=== PATIENT | male | born 1940 | race Caucasian/White ===

== ENCOUNTER 2016-05-02 11:25 | Inpatient (IN) | payer OTHER, MEDICARE ==
[2016-05-02] VITALS (9 sets, daily range): BP systolic 75–194; BP diastolic 61–81; PULSE 84–96; RESP 15–20; TEMP 95.9–97.8; O2SAT 97–100
[~2016-05-02] VITALS: Ht 182.9 cm; Wt 88.5 kg
[~2016-05-02 11:25] MED LIST: ALPR.25 PO; AMLO10 PO; FENO160T PO; FERR324T4 PO; FURO20 PO; GABA300C3 PO; HYDRA25 PO; MELO15TA2 PO; METF500 PO; POTA10TA15 PO; SERT50 PO; SIMV10 PO; TRAZ50TA4 PO
[2016-05-02] MEDS ORDERED: SODIUM CHLOR 0.9% 1000 ML INJ 1,000 ML IV SCH (11:40)
--- NOTE | 2016-05-02 11:43 | PD ---
HPI Chief Complaint: GI Complaint Time Seen by Provider: 11:43 Travel History International Travel<30 days: No Contact w/Intl Traveler<30days: No Traveled to known affect area: No History of Present Illness HPI 75-year-old male with a history of hypertension, hyperlipidemia and diabetes is brought to the emergency department by EMS for evaluation of fall at home. Per EMS report the patient's neighbors had not seen the patient out of the house for several days so they went to check on him and they found him he was on the floor and could not get up which is why they called EMS. Per EMS when they arrived on scene the patient was on the floor covered in feces that was dark black with a bucket of emesis next to him. At the time the patient was slightly confused, thought he was in his bed. The patient admits that he has had some vomiting and diarrhea for the past several days. He is not exactly sure how he fell or ended up on the ground. He denies any pain. He denies any complaints actually. He denies chest pain, shortness of breath, abdominal pain , nausea, lightheadedness, dizziness, headache. When I asked the patient if he takes blood thinners he says yes but he is unable to tell me the name of the medication. He is awake, alert and oriented 3. Denies any prior history of GI bleed. No other complaints. PFSH Past Medical History Arthritis: Yes Autoimmune Disease: No Anxiety: Yes Depression: No Heart Rhythm Problems: No Cancer: No Cardiovascular Problems: Yes High Cholesterol: Yes Chest Pain: No Cerebrovascular Accident: No Diabetes: Yes Endocrine: Yes Genitourinary: No Hypertension: Yes Immune Disorder: No Kidney Stones: No Musculoskeletal: Yes Neurologic: Yes Psychiatric: No Reproductive: No Respiratory: No Renal Failure: No Past Surgical History Abdominal Surgery: No Cardiac Surgery: No Genitourinary Surgery: No Gynecologic Surgery: No Thoracic Surgery: No Other Surgery: Yes Social History Alcohol Use: Yes (RARELY) Tobacco Use: Yes (1-2 CIGARS A DAY) Substance Use: No Allergies-Medications (Allergen,Severity, Reaction): Coded Allergies: No Known Allergies (Unverified , 02/20/15) Reported Meds & Prescriptions Reported Meds & Active Scripts Active Reported Sertraline (Sertraline HCl) 50 Mg Tab 50 Mg PO DAILY Fenofibrate 160 Mg Tab 160 Mg PO DAILY Ferrous Sulfate 325 Mg Tab 325 Mg PO TID Metformin (Metformin HCl) 500 Mg Tab 500 Mg PO DAILY With a meal Review of Systems Except as stated in HPI: all other systems reviewed are Neg Physical Exam Narrative GENERAL: Well-nourished and well-developed elderly male patient in no acute distress. Patient is covered in black feces. SKIN: Skin is pale and dry. 3 cm laceration to left posterior scalp, looks several days old. HEAD: Normocephalic and atraumatic. EYES: No injection, drainage, or hyphema noted. PERRLA. EOMI. ENT: No nasal drainage noted. Oropharynx is clear. NECK: Supple and the trachea is midline. No obvious deformities, no midline cervical spine tenderness. CARDIOVASCULAR: Regular rate and rhythm. RESPIRATORY: Breath sounds are equal bilaterally with no accessory muscle use, wheezing, rhonchi, or crackles. GASTROINTESTINAL: Abdomen is soft, non-tender, and nondistended. MUSCULOSKELETAL: No obvious deformities, swelling, cyanosis, or ecchymosis is present throughout the upper and lower extremities. Patient has full range of motion without any signs of neurovascular compromise. Strength 5/5 upper and lower extremities and equal bilaterally. BACK: Nontender without any obvious deformities, bony point tenderness, or crepitus noted throughout the thoracic and lumbar vertebrae. NEUROLOGICAL: Awake, alert, and oriented. Normal speech and gait. Cranial nerves are grossly intact. Data Data Last Documented VS Vital Signs Date Time Temp Pulse Resp B/P Pulse Ox O2 Delivery O2 Flow Rate FiO2 05/02/16 12:00 90 17 154/70 98 Room Air 05/02/16 11:28 97.4 Orders Complete Blood Count With Diff (05/02/16 11:40) Comprehensive Metabolic Panel (05/02/16 11:40) Lipase (05/02/16 11:40) Prothrombin Time / Inr (Pt) (05/02/16 11:40) Act Partial Throm Time (Ptt) (05/02/16 11:40) Urinalysis - C+S If Indicated (05/02/16 11:40) Type And Screen (05/02/16 11:40) Chest, Single Ap (05/02/16 11:40) Cath For Specimen (05/02/16 11:40) Ecg Monitoring (05/02/16 11:40) Iv Access Insert/Monitor (05/02/16 11:40) Oximetry (05/02/16 11:40) Sodium Chlor 0.9% 1000 Ml Inj (Ns 1000 M (05/02/16 11:40) Sodium Chloride 0.9% Flush (Ns Flush) (05/02/16 11:45) Pantoprazole Inj (Protonix Inj) (05/02/16 11:45) Pantoprazole Inj (Protonix Inj) (05/02/16 11:45) Electrocardiogram (05/02/16 11:40) Creatine Kinase (Cpk) (05/02/16 11:40) Troponin I (05/02/16 11:40) Ct Brain W/O Iv Contrast(Rout) (05/02/16 11:40) Ct Cerv Spine W/O Contrast (05/02/16 11:40) Red Blood Cells (Rbc) (05/02/16 12:14) Blood Product Administration .UPON TRANSFUSION (05/02/16 12:14) Sodium Chlor 0.9% 250 Ml Inj (Ns 250 Ml (05/02/16 12:15) Fresh Frozen Plasma (Ffp) (05/02/16 12:23) Blood Product Administration .UPON TRANSFUSION (05/02/16 12:23) Consult Gastroenterology (05/02/16 ) Admit Order (Ed Use Only) (05/02/16 13:17) Labs Laboratory Tests Test 05/02/16 05/02/16 05/02/16 05/02/16 11:51 12:14 12:23 12:54 White Blood Count 6.5 TH/MM3 Red Blood Count 2.10 MIL/MM3 Hemoglobin 5.5 GM/DL Hematocrit 16.6 % Mean Corpuscular Volume 79.3 FL Mean Corpuscular Hemoglobin 26.4 PG Mean Corpuscular Hemoglobin 33.2 % Concent Red Cell Distribution Width 16.9 % Platelet Count 111 TH/MM3 Mean Platelet Volume 8.5 FL Neutrophils (%) (Auto) 85.3 % Lymphocytes (%) (Auto) 9.4 % Monocytes (%) (Auto) 4.9 % Eosinophils (%) (Auto) 0.1 % Basophils (%) (Auto) 0.3 % Neutrophils # (Auto) 5.6 TH/MM3 Lymphocytes # (Auto) 0.6 TH/MM3 Monocytes # (Auto) 0.3 TH/MM3 Eosinophils # (Auto) 0.0 TH/MM3 Basophils # (Auto) 0.0 TH/MM3 CBC Comment DIFF FINAL Differential Comment Prothrombin Time 17.7 SEC Prothromb Time International 1.6 RATIO Ratio Activated Partial 27.9 SEC Thromboplast Time Urine Color YELLOW Urine Turbidity CLEAR Urine pH 5.0 Urine Specific [place] 1.016 Urine Protein NEG mg/dL Urine Glucose (UA) NEG mg/dL Urine Ketones NEG mg/dL Urine Occult Blood TRACE Urine Nitrite NEG Urine Bilirubin NEG Urine Urobilinogen LESS THAN 2.0 MG/DL Urine Leukocyte Esterase NEG Urine RBC 4 /hpf Urine WBC 1 /hpf Urine Squamous Epithelial <1 /hpf Cells Urine Bacteria RARE /hpf Urine Hyaline Casts 6 /lpf Microscopic Urinalysis Comment CULT NOT INDICATED Sodium Level 140 MEQ/L Potassium Level 5.1 MEQ/L Chloride Level 107 MEQ/L Carbon Dioxide Level 23.3 MEQ/L Anion Gap 10 MEQ/L Blood Urea Nitrogen 96 MG/DL Creatinine 2.26 MG/DL Estimat Glomerular Filtration 29 ML/MIN Rate Random Glucose 194 MG/DL Calcium Level 8.8 MG/DL Total Bilirubin 1.9 MG/DL Aspartate Amino Transf 63 U/L (AST/SGOT) Alanine Aminotransferase 29 U/L (ALT/SGPT) Alkaline Phosphatase 73 U/L Total Creatine Kinase 195 U/L Troponin I LESS THAN 0.02 NG/ML Total Protein 6.5 GM/DL Albumin 2.4 GM/DL Lipase 105 U/L Blood Type O POSITIVE O POSITIVE Antibody Screen NEGATIVE Blood Bank Comment Crossmatch Leukocyte-Reduced Red Blood Cells MDM Medical Decision Making Medical Screen Exam Complete: Yes Emergency Medical Condition: Yes Differential Diagnosis GI bleed versus rhabdomyolysis versus DKA versus dehydration versus electrolyte abnormality versus intracranial hemorrhage Narrative Course 75-year-old male is brought to the emergency department by EMS for evaluation of fall at home with unknown down time. Patient is afebrile, he is slightly tachycardic with a heart rate of 96 bpm. Otherwise vital signs are stable. On physical exam he is covered in black feces. I did obtain a sample of this to do a stool guaiac which is positive. IV access is obtained, labs have been drawn and sent. Patient is administered IV fluids and Protonix bolus with drip. CBC shows severe anemia with a hemoglobin of 5.5, hematocrit 16.6. Platelets are low at 111. Coags show INR is slightly elevated at 1.6. Urinalysis shows trace occult blood, for a blood cells, rare bacteria. Head CT is negative. Cervical spine CT is negative. Chest x-ray is negative. CMP shows elevated creatinine of 2.26, and BUN of 96. Urinalysis shows trace occult blood, 4 red blood cells, rare bacteria. Patient has remained stable and without complaint while here in the emergency department. I have ordered 6 units of red blood cells, 2 to be administered now and 4 to be held. Patient will be administered 2 units of FFP as well. Gastroenterology consult placed. Patient will be admitted to medicine service. I discussed the case with my attending physician Dr. Thomson who is aware of the patients history, physical examination findings, and treatment plan. HemaPrompt Point of Care Internal Pos. & Neg. Controls: Passed Fecal Specimen Occult Blood: Positive Physician Communication Physician Communication I spoke with Dr. Mitchell [facility] who agrees to admit the patient to his service. Diagnosis Primary Impression: GI bleed Qualified Code: K92.2 - Gastrointestinal hemorrhage, unspecified gastrointestinal hemorrhage type Additional Impression: RAMON (acute kidney injury) Admitting Information Admitting Physician Requests: Admit Sun Daniel May 02, 2016 11:43
[2016-05-02] MEDS ORDERED: SODIUM CHLORIDE 0.9% FLUSH 5 ML FLUSH IVF PRN (11:45)
[2016-05-02] MEDS ORDERED: PANTOPRAZOLE INJ 80 MG in SODIUM CHLORIDE 0.9% INJ 35 ML IV ONE (11:45)
[2016-05-02 12:06] LABS: AUTOMATED NEUTROPHIL # 5.6 TH/MM3 (1.8-7.7); BASOPHIL % 0.3 % (0.0-2.0); EOSINOPHIL % 0.1 % (0.0-4.0); LYMPH % 9.4 % (9.0-44.0); LYMPHOCYTE # 0.6 TH/MM3 (1.0-4.8); MEAN CELL VOLUME 79.3 FL (80.0-100.0); MEAN CORPUSCULAR HEMOGLOBIN 26.4 PG (27.0-34.0); MEAN CORPUSCULAR HGB CONC 33.2 % (32.0-36.0); MONO % 4.9 % (0.0-8.0); NEUT % 85.3 % (16.0-70.0); PLATELET COUNT 111 TH/MM3 (150-450); RED CELL DISTRIBUTION WIDTH 16.9 % (11.6-17.2); WHITE BLOOD COUNT 6.5 TH/MM3 (4.0-11.0)
[2016-05-02 12:13] LABS: HEMO FLAGS DIFF FINAL
[2016-05-02] MEDS ORDERED: FENO160T PO (12:14)
[2016-05-02] MEDS ORDERED: METF500T PO (12:14)
[2016-05-02] MEDS ORDERED: SERT-132 PO (12:14)
[2016-05-02] MEDS ORDERED: FERR325T PO (12:14)
[2016-05-02 12:15] LABS: BACTERIA, URINE RARE /hpf; BLOOD, URINE TRACE (NEG); COMMENT (UR) CULT NOT INDICATED; CULTURE IF INDICATED CULT NOT INDICATED; GLUCOSE,URINE NEG (NEG); HEMATOCRIT 16.6 % (39.0-51.0); HYALINE CAST, URINE 6 /lpf (RARE); KETONE, URINE NEG (NEG); NITRITE,URINE NEG (NEG); SQUAMOUS EPITHELIAL CELL URINE <1 /hpf (0-5); URINE COLOR YELLOW (YELLW/STRAW)
[2016-05-02] MEDS ORDERED: SODIUM CHLOR 0.9% 250 ML INJ 250 ML IV ONE (12:15)
[2016-05-02 12:18] LABS: APTT (PATIENT) 27.9 SEC (24.3-30.1); INTERNATIONAL NORMALIZED RATIO 1.6 RATIO; PROTHROMBIN TIME - PATIENT 17.7 SEC (9.8-11.6)
--- NOTE | 2016-05-02 12:24 | RADRPT ---
EXAM DATE/TIME: 05/02/2016 12:10 [facility] COMPARISON: CT BRAIN W/O CONTRAST, October 31, 2014, 16:18. INDICATIONS : Found unresponsive. RADIATION DOSE: 37.86 CTDIvol (mGy) MEDICAL HISTORY : Cardiovascular disease. Hypertension. Diabetes SURGICAL HISTORY : None. ENCOUNTER: Initial ACUITY: 1 day PAIN SCALE: 0/10 LOCATION: cranial TECHNIQUE: Multiple contiguous axial images were obtained of the head. Using automated exposure control and adj ustment of the mA and/or kV according to patient size, radiation dose was kept as low as reasonably a chievable to obtain optimal diagnostic quality images. FINDINGS: CEREBRUM: The ventricles are normal for age. Stable age appropriate atrophy No evidence of midline shift, mass lesion, hemorrhage or acute infarction. No extra-axial fluid collections are seen.POSTERIOR FOSSA: The cerebellum and brainstem are intact. The 4th ventricle is midline. The cerebellopontine angle i s unremarkable. EXTRACRANIAL: The visualized portion of the orbits is intact. SKULL: The calvaria is intact. No evidence of skull fracture. CONCLUSION: Normal examination for a patient of this age. No significant change has occurred. Fabian Wilcox MD on May 02, 2016 at 12:22 Board Certified Radiologist. This report was verified electronically.
[2016-05-02 12:30] LABS: ALT (GPT) 29 U/L (12-78); ANION GAP 10 MEQ/L (5-15); AST (GOT) 63 U/L (15-37); BICARBONATE 23.3 MEQ/L (21.0-32.0); BLOOD UREA NITROGEN 96 MG/DL (7-18); CHLORIDE 107 MEQ/L (98-107); GLOMERULAR FILTRATION RATE 29 ML/MIN (>89); POTASSIUM 5.1 MEQ/L (3.5-5.1); SODIUM (NA) 140 MEQ/L (136-145)
[2016-05-02 12:34] LABS: ALKALINE PHOSPHATASE 73 U/L (45-117); CREATINE KINASE 195 U/L (39-308); TOTAL BILIRUBIN ADULT 1.9 MG/DL (0.2-1.0)
[2016-05-02] MEDS: PANTOPRAZOLE INJ 80 MG in SODIUM CHLORIDE 0.9% INJ 100 ML IV SCH ×2 (12:43→21:31)
--- NOTE | 2016-05-02 12:43 | RADRPT ---
EXAM DATE/TIME: 05/02/2016 12:10 [facility] COMPARISON: No previous studies available for comparison. INDICATIONS : Found unresponsive today RADIATION DOSE: 21.53 CTDIvol (mGy) MEDICAL HISTORY : Cardiovascular disease. Hypertension. Diabetes SURGICAL HISTORY : None. ENCOUNTER: Initial ACUITY: 1 day PAIN SCALE: 10/10 LOCATION: neck TECHNIQUE: Volumetric scanning of the cervical spine was performed. Multiplanar reconstructions in the sagittal, coronal and oblique axial planes were performed. Using automated exposure control and adjustment o f the mA and/or kV according to patient size, radiation dose was kept as low as reasonably achievable to obtain optimal diagnostic quality images. FINDINGS: There are mild degenerative changes of the cervical spine and anterior marginal spurring at multiple levels as well as posterior facet arthritic change. Alignment is normal with no fracture, compression , subluxation, or destructive change. Odontoid is in normal relationship the arch of C1 and the upper thoracic spine is negative with open and patent foramen CONCLUSION: No acute bony injury. Mild degenerative changes as described Fabian Wilcox MD on May 02, 2016 at 12:38 Board Certified Radiologist. This report was verified electronically.
--- NOTE | 2016-05-02 12:45 | RADRPT ---
EXAM DATE/TIME: 05/02/2016 12:12 [facility] COMPARISON: CHEST SINGLE AP, April 22, 2013, 14:11. INDICATIONS : Chest pain. MEDICAL HISTORY : Hypertension. Cardiovascular disease. Diabetes mellitus type II. SURGICAL HISTORY : None. ENCOUNTER: Initial ACUITY: 1 day PAIN SCORE: 0/10 LOCATION: Bilateral chest FINDINGS: A single view of the chest demonstrates the lungs to be symmetrically aerated without evidence of mas s, infiltrate or effusion. The cardiomediastinal contours are unremarkable with calcification aortic knob. Osseous structures are intact with right-sided marginal spurring thoracic spine.. CONCLUSION: Normal examination for a patient of this age. No significant change has occurred. Fabian Wilcox MD on May 02, 2016 at 12:43 Board Certified Radiologist. This report was verified electronically.
--- NOTE | 2016-05-02 13:53 | HHI.HP ---
HPI Service [facility] Primary Care Physician Randy Proctor M.D. Admission Diagnosis GI Bleed, Severe Anemia, RAMON Diagnoses: (1) GI bleed (2) Diabetes mellitus (3) Hypertension (4) Hyperlipidemia (5) Acute worsening of stage 3 chronic kidney disease (6) Symptomatic anemia (7) Microcytic hypochromic anemia (8) Toxic metabolic encephalopathy Chief Complaint: AMS with severe anemia, Travel History International Travel<30 Days: No Contact w/Intl Traveler <30 Da: No Traveled to Known Affected Are: No History of Present Illness 75-year-old male with known history of hypertension, hyperlipidemia, diabetes who was brought to the hospital because of altered mental status. The patient does not recall what happened to him prior to coming to the hospital. Per EMR patient has not been seen for 2 days prior to being brought to the hospital. On admissions, he has H&H of 5.5/16.6, INR of 1.6 and BUN/creatinine of 96/2.[address] was Normal and chest x-ray negative. Patient during my exam was alerted to self, month however no year and could tell who the textile bag sewer is. He denies any hemoptysis or hematuria. He also denies any chest pain or shortness of breath. Review of Systems Other 12 systems reviewed and are negative except for the one mentioned in history of present illness Past Family Social History Past Medical History Hypertension Hyperlipidemia Diabetes mellitus Past Surgical History Right leg surgery for tib-fib fracture Allergies: Coded Allergies: No Known Allergies (Unverified , 02/20/15) Family History significant for cancer Social History Patient continues to smoke at least 2 cigars daily. Patient has been smoking since he was 19 years old. Patient denies any alcohol or illicit drugs Physical Exam Vital Signs Vital Signs Date Time Temp Pulse Resp B/P Pulse Ox O2 Delivery O2 Flow Rate FiO2 05/02/16 13:45 97.6 91 16 180/77 98 Room Air 05/02/16 12:00 90 17 154/70 98 Room Air 05/02/16 11:28 97.4 96 18 140/62 99 Physical Exam GENERAL: This is a well-nourished, well-developed patient, in no apparent distress. SKIN: No rashes, ecchymoses or lesions. Cool and dry. HEAD: Atraumatic. Normocephalic. No temporal or scalp tenderness. EYES: Pupils equal round and reactive. Extraocular motions intact. No scleral icterus. No injection or drainage. ENT: Nose without bleeding, purulent drainage or septal hematoma. Throat without erythema, tonsillar hypertrophy or exudate. Uvula midline. Airway patent. NECK: Trachea midline. No JVD or lymphadenopathy. Supple, nontender, no meningeal signs. CARDIOVASCULAR: Regular rate and rhythm without murmurs, gallops, or rubs. RESPIRATORY: Clear to auscultation. Breath sounds equal bilaterally. No wheezes , rales, or rhonchi. GASTROINTESTINAL: Abdomen soft, non-tender, nondistended. No hepato-splenomegaly , or palpable masses. No guarding. MUSCULOSKELETAL: Extremities without clubbing, cyanosis, or edema. No joint tenderness, effusion, or edema noted. No calf tenderness. Negative Homans sign bilaterally. NEUROLOGICAL: Awake and alert. Cranial nerves II through XII intact. Motor and sensory grossly within normal limits. Five out of 5 muscle strength in all muscle groups. Normal speech. Laboratory Laboratory Tests Test 05/02/16 05/02/16 05/02/16 05/02/16 11:51 12:14 12:23 12:54 White Blood Count 6.5 Red Blood Count 2.10 Hemoglobin 5.5 Hematocrit 16.6 Mean Corpuscular Volume 79.3 Mean Corpuscular Hemoglobin 26.4 Mean Corpuscular Hemoglobin 33.2 Concent Red Cell Distribution Width 16.9 Platelet Count 111 Mean Platelet Volume 8.5 Neutrophils (%) (Auto) 85.3 Lymphocytes (%) (Auto) 9.4 Monocytes (%) (Auto) 4.9 Eosinophils (%) (Auto) 0.1 Basophils (%) (Auto) 0.3 Neutrophils # (Auto) 5.6 Lymphocytes # (Auto) 0.6 Monocytes # (Auto) 0.3 Eosinophils # (Auto) 0.0 Basophils # (Auto) 0.0 CBC Comment DIFF FINAL Differential Comment Prothrombin Time 17.7 Prothromb Time International 1.6 Ratio Activated Partial 27.9 Thromboplast Time Urine Color YELLOW Urine Turbidity CLEAR Urine pH 5.0 Urine Specific [place] 1.016 Urine Protein NEG Urine Glucose (UA) NEG Urine Ketones NEG Urine Occult Blood TRACE Urine Nitrite NEG Urine Bilirubin NEG Urine Urobilinogen LESS THAN 2.0 Urine Leukocyte Esterase NEG Urine RBC 4 Urine WBC 1 Urine Squamous Epithelial <1 Cells Urine Bacteria RARE Urine Hyaline Casts 6 Microscopic Urinalysis Comment CULT NOT INDICATED Sodium Level 140 Potassium Level 5.1 Chloride Level 107 Carbon Dioxide Level 23.3 Anion Gap 10 Blood Urea Nitrogen 96 Creatinine 2.26 Estimat Glomerular Filtration 29 Rate Random Glucose 194 Calcium Level 8.8 Total Bilirubin 1.9 Aspartate Amino Transf 63 (AST/SGOT) Alanine Aminotransferase 29 (ALT/SGPT) Alkaline Phosphatase 73 Total Creatine Kinase 195 Troponin I LESS THAN 0.02 Total Protein 6.5 Albumin 2.4 Lipase 105 Blood Type O POSITIVE O POSITIVE Antibody Screen NEGATIVE Blood Bank Comment Crossmatch Leukocyte-Reduced Red Blood Cells Result Diagram: 05/02/16 1151 05/02/16 1151 Imaging Last Impressions Head CT 05/02/16 1140 Signed Impressions: Service Date/Time: Monday, May 02, 2016 12:10 - CONCLUSION: Normal examination for a patient of this age. No significant change has occurred. Fabian Wilcox MD Chest X-Ray 05/02/16 1140 Signed Impressions: Service Date/Time: Monday, May 02, 2016 12:12 - CONCLUSION: Normal examination for a patient of this age. No significant change has occurred. Fabian Wilcox MD Cervical Spine CT 05/02/16 1140 Signed Impressions: Service Date/Time: Monday, May 02, 2016 12:10 - CONCLUSION: No acute bony injury. Mild degenerative changes as described Fabian Wilcox MD Assessment and Plan Problem List: (1) GI bleed ICD Code: K92.2 Status: Acute (2) Microcytic hypochromic anemia ICD Code: D50.9 Status: Acute (3) Symptomatic anemia ICD Code: D64.9 Status: Acute (4) Toxic metabolic encephalopathy ICD Code: G92 Status: Acute (5) Hyperlipidemia ICD Code: E78.5 Status: Acute (6) Hypertension ICD Code: I10 Status: Acute Assessment and Plan 75-year-old male with 1-GI bleed: H&H on admission 5.5 /16.6 with a positive fecal occult blood test. Gastroenterology has been consulted for evaluation for possible panendoscopy. Continue with Protonix drip 2-Symptomatic anemia: Transfused 2 units packed red blood cell and monitor H&H 3-Coagulopathy with elevated AST: Denies any prior history of liver disease, status post FFP treatment in ED 4-Acute on chronic kidney disease stage III: Last BUN/creatinine 02/20/15 off 27 /1.4 and now 96/2.26. Maybe secondary to dehydration versus anemia, which check renal ultrasound and consult nephrology. 5-Toxic metabolic encephalopathy: Now resolving, head CT noted and reviewed by me without any acute finding. Chest x-ray negative. 6-Diabetes type 2: Hold oral hypoglycemic agent, start medium sliding scale insulin. Check A1c 7-Labile benign hypertension: Start Lopressor 50 mg by mouth twice a day, clonidine when necessary 8-Hyperlipidemia: Check lipid profile, resume statin 10-DVT prophylaxis: Bilateral SCDs, chemical anti-prophylactic contraindicated Code Status Full code Discussed Condition With Patient, ED physician Physician Certification 2 Midnight Certification Type: Admission for Inpatient Services Order for Inpatient Services The services are ordered in accordance with Medicare regulations or non- Medicare payer requirements, as applicable. In the case of services not specified as inpatient-only, they are appropriately provided as inpatient services in accordance with the 2-midnight benchmark. Estimated LOS (days): 2 days is the estimated time the patient will need to remain in the hospital, assuming treatment plan goals are met and no additional complications. Post-Hospital Plan: Not yet determined Problem Qualifiers (1) GI bleed: Qualified Code: K92.2 - Gastrointestinal hemorrhage, unspecified gastrointestinal hemorrhage type (2) Diabetes mellitus: Bob Mitchell MD May 02, 2016 13:53
[2016-05-02] MEDS: SODIUM CHLOR 0.9% 1000 ML INJ 1,000 ML IV SCH (13:59)
[2016-05-02] MEDS ORDERED: SODIUM CHLORIDE 0.9% FLUSH 5 ML FLUSH FLUSH PRN (14:00)
[2016-05-02] MEDS ORDERED: DEXTROSE 50% IN WATER 50 ML VIAL(D50) IV PUSH PRN (14:00)
[2016-05-02] MEDS ORDERED: ONDANSETRON HCL 4 MG/2 ML VIAL IVP PRN (14:00)
[2016-05-02] MEDS ORDERED: GLUCAGON 1 MG/ML VIAL OTHER PRN (14:00)
[2016-05-02] MEDS ORDERED: ACETAMINOPHEN 325 MG TAB PO PRN ×2 (14:00)
[2016-05-02] MEDS ORDERED: NALOXONE HCL 0.4 MG/ML AMP IV PRN (14:00)
--- NOTE | 2016-05-02 14:12 | PD ---
Data Data Last Documented VS Vital Signs Date Time Temp Pulse Resp B/P Pulse Ox O2 Delivery O2 Flow Rate FiO2 05/02/16 12:00 90 17 154/70 98 Room Air 05/02/16 11:28 97.4 Orders Complete Blood Count With Diff (05/02/16 11:40) Comprehensive Metabolic Panel (05/02/16 11:40) Lipase (05/02/16 11:40) Prothrombin Time / Inr (Pt) (05/02/16 11:40) Act Partial Throm Time (Ptt) (05/02/16 11:40) Urinalysis - C+S If Indicated (05/02/16 11:40) Type And Screen (05/02/16 11:40) Chest, Single Ap (05/02/16 11:40) Cath For Specimen (05/02/16 11:40) Ecg Monitoring (05/02/16 11:40) Iv Access Insert/Monitor (05/02/16 11:40) Oximetry (05/02/16 11:40) Sodium Chlor 0.9% 1000 Ml Inj (Ns 1000 M (05/02/16 11:40) Sodium Chloride 0.9% Flush (Ns Flush) (05/02/16 11:45) Pantoprazole Inj (Protonix Inj) (05/02/16 11:45) Pantoprazole Inj (Protonix Inj) (05/02/16 11:45) Electrocardiogram (05/02/16 11:40) Creatine Kinase (Cpk) (05/02/16 11:40) Troponin I (05/02/16 11:40) Ct Brain W/O Iv Contrast(Rout) (05/02/16 11:40) Ct Cerv Spine W/O Contrast (05/02/16 11:40) Red Blood Cells (Rbc) (05/02/16 12:14) Blood Product Administration .UPON TRANSFUSION (05/02/16 12:14) Sodium Chlor 0.9% 250 Ml Inj (Ns 250 Ml (05/02/16 12:15) Fresh Frozen Plasma (Ffp) (05/02/16 12:23) Blood Product Administration .UPON TRANSFUSION (05/02/16 12:23) Consult Gastroenterology (05/02/16 ) Admit Order (Ed Use Only) (05/02/16 13:17) Labs Laboratory Tests Test 05/02/16 05/02/16 05/02/16 05/02/16 11:51 12:14 12:23 12:54 White Blood Count 6.5 TH/MM3 Red Blood Count 2.10 MIL/MM3 Hemoglobin 5.5 GM/DL Hematocrit 16.6 % Mean Corpuscular Volume 79.3 FL Mean Corpuscular Hemoglobin 26.4 PG Mean Corpuscular Hemoglobin 33.2 % Concent Red Cell Distribution Width 16.9 % Platelet Count 111 TH/MM3 Mean Platelet Volume 8.5 FL Neutrophils (%) (Auto) 85.3 % Lymphocytes (%) (Auto) 9.4 % Monocytes (%) (Auto) 4.9 % Eosinophils (%) (Auto) 0.1 % Basophils (%) (Auto) 0.3 % Neutrophils # (Auto) 5.6 TH/MM3 Lymphocytes # (Auto) 0.6 TH/MM3 Monocytes # (Auto) 0.3 TH/MM3 Eosinophils # (Auto) 0.0 TH/MM3 Basophils # (Auto) 0.0 TH/MM3 CBC Comment DIFF FINAL Differential Comment Prothrombin Time 17.7 SEC Prothromb Time International 1.6 RATIO Ratio Activated Partial 27.9 SEC Thromboplast Time Urine Color YELLOW Urine Turbidity CLEAR Urine pH 5.0 Urine Specific [place] 1.016 Urine Protein NEG mg/dL Urine Glucose (UA) NEG mg/dL Urine Ketones NEG mg/dL Urine Occult Blood TRACE Urine Nitrite NEG Urine Bilirubin NEG Urine Urobilinogen LESS THAN 2.0 MG/DL Urine Leukocyte Esterase NEG Urine RBC 4 /hpf Urine WBC 1 /hpf Urine Squamous Epithelial <1 /hpf Cells Urine Bacteria RARE /hpf Urine Hyaline Casts 6 /lpf Microscopic Urinalysis Comment CULT NOT INDICATED Sodium Level 140 MEQ/L Potassium Level 5.1 MEQ/L Chloride Level 107 MEQ/L Carbon Dioxide Level 23.3 MEQ/L Anion Gap 10 MEQ/L Blood Urea Nitrogen 96 MG/DL Creatinine 2.26 MG/DL Estimat Glomerular Filtration 29 ML/MIN Rate Random Glucose 194 MG/DL Calcium Level 8.8 MG/DL Total Bilirubin 1.9 MG/DL Aspartate Amino Transf 63 U/L (AST/SGOT) Alanine Aminotransferase 29 U/L (ALT/SGPT) Alkaline Phosphatase 73 U/L Total Creatine Kinase 195 U/L Troponin I LESS THAN 0.02 NG/ML Total Protein 6.5 GM/DL Albumin 2.4 GM/DL Lipase 105 U/L Blood Type O POSITIVE O POSITIVE Antibody Screen NEGATIVE Blood Bank Comment Crossmatch Leukocyte-Reduced Red Blood Cells MDM Supervised Visit with ANTONIO: Yes Narrative Course The history, exam, and medical decision-making in the associated mid-level provider note were completed with my assistance. I reviewed and agree with the findings presented. I attest that I had a [id number] encounter with the patient on the same day, and personally performed and documented my assessment and findings in the medical record. *My assessment and Findings: 80-year-old man, reportedly on a blood thinner, presents emergent part of the being found down, on the floor for an unknown number of days, covered and melena. Possible bloody emesis as well. Looks dehydrated but nontoxic. INR is elevated. Possible liver disease. Ordered for red blood cell transfusion, FFP, IV fluids, no rhabdo. Admission. Diagnosis Primary Impression: GI bleed Qualified Code: K92.2 - Gastrointestinal hemorrhage, unspecified gastrointestinal hemorrhage type Additional Impression: RAMON (acute kidney injury) Itz Thomson MD May 02, 2016 14:12
[2016-05-02] MEDS ORDERED: cloNIDine HCL 0.1 MG TAB PO PRN (14:30)
[2016-05-02] MEDS ORDERED: RESP: ALBUTEROL 2.5 MG/IPRATROPIUM 0.5 MG NEB (PRN) NEB (14:30)
--- NOTE | 2016-05-02 15:27 | RADRPT ---
EXAM DATE/TIME: 05/02/2016 14:36 [facility] COMPARISON: No previous studies available for comparison. INDICATIONS : Increased labs. MEDICAL HISTORY : Hypercholesterolemia. Hypertension. Arthritis. Diabetes. SURGICAL HISTORY : Right leg surgery. ENCOUNTER: Initial ACUITY: 1 day PAIN SCORE: Nonresponsive. LOCATION: Bilateral flank MEASUREMENTS: RIGHT KIDNEY: 10.5 x 4.9 x 4.0 cm LEFT KIDNEY: 10.6 x 5.1 x 4.7 cm FINDINGS: Moderate amount of ascitic fluid and free fluid within the abdomen RIGHT KIDNEY: Renal cortex is normal in thickness and echotexture. No hydronephrosis, stone, or mass. LEFT KIDNEY: Renal cortex is normal in thickness and echotexture. No hydronephrosis, stone, or m ass. BLADDER: Within normal limits given the degree of distension. CONCLUSION: Negative ultrasound of the kidneys. Bladder is intact. Moderate amount of ascitic salvador e fluid in the abdomen Fabian Wilcox MD on May 02, 2016 at 15:24 Board Certified Radiologist. This report was verified electronically.
[2016-05-02] MEDS: INSULIN ASPART SUPPLEMENTAL SCALE SQ SCH ×2 (16:59→21:28)
--- NOTE | 2016-05-02 17:54 | PD.CONS ---
HPI History of Present Illness This is a 75 year old male who was admitted with altered mental status. He does not recall what happened at home prior to coming to the emergency department.He is a poor historian. He appears jaundiced and has elevated LFT's, ascites,with multiple ecchymotic areas on his arms. He was found to have a H/H 5.5 and 16.6. He denies blood in his stools or vomiting any blood. Denies abdominal pain or diarrhea.He states he has lost about 20 pounds since December. He thinks he had a colonoscopy about 3 years ago not sure of results and does not remember having an EGD. He declines any GI procedures at this time. (Yudi Carpenter) FORMERLY [facility], 1928–1983 Past Medical History Hypertension Chronic anemia Hyperlipidemia Diabetes mellitus Chronic kidney disease Stage 3 Thrombocytopenia Past Surgical History Right leg surgery for tib-fib fracture (Yudi Carpenter) Coded Allergies: No Known Allergies (Unverified , 02/20/15) Medications Reported Meds & Active Scripts Active Reported Sertraline (Sertraline HCl) 50 Mg Tab 50 Mg PO DAILY Fenofibrate 160 Mg Tab 160 Mg PO DAILY Ferrous Sulfate 325 Mg Tab 325 Mg PO TID Metformin (Metformin HCl) 500 Mg Tab 500 Mg PO DAILY With a meal Family History significant for cancer Social History Patient continues to smoke at least 2 cigars daily. Patient has been smoking since he was 19 years old. Patient denies any alcohol or illicit drugs (Yudi Carpenter) GI Exam Vitals I&O Vital Signs Date Time Temp Pulse Resp B/P Pulse Ox O2 Delivery O2 Flow Rate FiO2 05/02/16 15:18 85 16 187/81 98 Room Air 05/02/16 14:01 97.8 91 16 159/71 98 Room Air 05/02/16 13:59 97.8 91 15 159/71 97 Room Air 05/02/16 13:45 97.6 91 16 180/77 98 Room Air 05/02/16 12:00 90 17 154/70 98 Room Air 05/02/16 11:28 97.4 96 18 140/62 99 Imaging Last [address] 05/02/16 1140 Signed Impressions: Service Date/Time: Monday, May 02, 2016 12:10 - CONCLUSION: Normal examination for a patient of this age. No significant change has occurred. Fabian Wilcox MD Chest X-Ray 05/02/16 1140 Signed Impressions: Service Date/Time: Monday, May 02, 2016 12:12 - CONCLUSION: Normal examination for a patient of this age. No significant change has occurred. Fabian Wilcox MD Cervical Spine CT 05/02/16 1140 Signed Impressions: Service Date/Time: Monday, May 02, 2016 12:10 - CONCLUSION: No acute bony injury. Mild degenerative changes as described Fabian Wilcox MD Renal Ultrasound 05/02/16 0000 Signed Impressions: Service Date/Time: Monday, May 02, 2016 14:36 - CONCLUSION: Negative ultrasound of the kidneys. Bladder is intact. Moderate amount of ascitic free fluid in the abdomen Fabian Wilcox MD Laboratory Test 05/02/16 05/02/16 05/02/16 05/02/16 11:51 12:14 12:23 12:54 White Blood Count 6.5 TH/MM3 Red Blood Count 2.10 MIL/MM3 Hemoglobin 5.5 GM/DL Hematocrit 16.6 % Mean Corpuscular Volume 79.3 FL Mean Corpuscular Hemoglobin 26.4 PG Mean Corpuscular Hemoglobin 33.2 % Concent Red Cell Distribution Width 16.9 % Platelet Count 111 TH/MM3 Mean Platelet Volume 8.5 FL Neutrophils (%) (Auto) 85.3 % Lymphocytes (%) (Auto) 9.4 % Monocytes (%) (Auto) 4.9 % Eosinophils (%) (Auto) 0.1 % Basophils (%) (Auto) 0.3 % Neutrophils # (Auto) 5.6 TH/MM3 Lymphocytes # (Auto) 0.6 TH/MM3 Monocytes # (Auto) 0.3 TH/MM3 Eosinophils # (Auto) 0.0 TH/MM3 Basophils # (Auto) 0.0 TH/MM3 CBC Comment DIFF FINAL Differential Comment Prothrombin Time 17.7 SEC Prothromb Time International 1.6 RATIO Ratio Activated Partial 27.9 SEC Thromboplast Time Urine Color YELLOW Urine Turbidity CLEAR Urine pH 5.0 Urine Specific [place] 1.016 Urine Protein NEG mg/dL Urine Glucose (UA) NEG mg/dL Urine Ketones NEG mg/dL Urine Occult Blood TRACE Urine Nitrite NEG Urine Bilirubin NEG Urine Urobilinogen LESS THAN 2.0 MG/DL Urine Leukocyte Esterase NEG Urine RBC 4 /hpf Urine WBC 1 /hpf Urine Squamous Epithelial <1 /hpf Cells Urine Bacteria RARE /hpf Urine Hyaline Casts 6 /lpf Microscopic Urinalysis Comment CULT NOT INDICATED Sodium Level 140 MEQ/L Potassium Level 5.1 MEQ/L Chloride Level 107 MEQ/L Carbon Dioxide Level 23.3 MEQ/L Anion Gap 10 MEQ/L Blood Urea Nitrogen 96 MG/DL Creatinine 2.26 MG/DL Estimat Glomerular Filtration 29 ML/MIN Rate Random Glucose 194 MG/DL Calcium Level 8.8 MG/DL Total Bilirubin 1.9 MG/DL Aspartate Amino Transf 63 U/L (AST/SGOT) Alanine Aminotransferase 29 U/L (ALT/SGPT) Alkaline Phosphatase 73 U/L Total Creatine Kinase 195 U/L Troponin I LESS THAN 0.02 NG/ML Total Protein 6.5 GM/DL Albumin 2.4 GM/DL Lipase 105 U/L Blood Type O POSITIVE O POSITIVE Antibody Screen NEGATIVE Blood Bank Comment Crossmatch Leukocyte-Reduced Red Blood Cells Physical Examination HEENT: Pupils round and reactive to light; normocephalic; atraumatic; no jaundice. Throat is clear. NECK: Neck is supple, no JVD, no lymphadenopathy. CHEST: Decreased breath sounds CARDIAC: Regular rate and rhythm with no murmur gallop or rubs. ABDOMEN: Distended firm, + ascites EXTREMITIES: No clubbing, cyanosis, SKIN: jaundice DIRECTOR HOUSEKEEPING: No focal deficits; alert and oriented to person and place (Yudi Carpenter) Assessment and Plan Assessment: (1) Anemia Plan: Secondary to GI bleed H&H is 5.5/16.6 Transfuse PRBCs to keep Hgb > 7.0 (2) Altered mental status (3) GI bleed (4) Thrombocytopenia Plan: Chronic (5) Elevated LFTs Plan: will recheck in am US RUQ Plan This is a 75 year old male admitted with severe anemia with H&H of 5.5/16.6, has PMH of chronic anemia, thrombocytopenia. He denies abdominal pain, or any other GI symptoms. He appears to have ascites, multiple ecchymotic areas on his arms and jaundice. He is a poor historian. Thinks he had a colonoscopy about 3 years ago does not remember the results. Does not remember having an EGD, discussed procedures with the patient such as an EGD and colonoscopy and he declines procedures at this time. He has chronic kidney disease and BUN is 96 creatinine is 2.26. Plan -Transfuse PRBC's to keep Hgb > 7.0 -Follow serial H&H -Recheck LF'Ts in am -US liver -Continue PPI -Would recommend CT of the abdomen and pelvis but creatinine is elevated -May need paracentesis -Needs colonoscopy/EGD, he is declining procedures at this time -Supportive care Further recommendations will follow Patient was seen and examined by Dr. Fontana and myself this note is written on his behalf. (Yudi Carpenter) Assessment: (1) Anemia Plan: Secondary to GI bleed H&H is 5.5/16.6 Transfuse PRBCs to keep Hgb > 7.0 (2) Altered mental status (3) GI bleed (4) Thrombocytopenia Plan: Chronic (5) Elevated LFTs Plan: will recheck in am US RUQ Physician Comments patient was seen and examine, does not want any procedure, aware of the high risks of not having his anemia evaluated (Nas Fontana MD) Problem Qualifiers (1) Altered mental status: Qualified Code: R41.82 - Altered mental status, unspecified altered mental status type (2) GI bleed: Qualified Code: K92.2 - Gastrointestinal hemorrhage, unspecified gastrointestinal hemorrhage type Yudi Carpenter May 02, 2016 17:54 Nas Fontana MD May 02, 2016 22:29
--- NOTE | 2016-05-02 18:24 | PD.CONS ---
HPI Service Nephrology Consult Requested By Dr. Mitchell Reason for Consult Acute renal failure Primary Care Physician Randy Proctor M.D. History of Present Illness Patient is 75-year-old male with history of diabetes, he has been admitted to the in the hospital with altered mental status and possible GI bleed, patient recalled passing small amount of blood in the stool however he was not alarmed, he never had kidney problems or liver issues he denies taking alcoholic beverages, used to smoke cigar once a month, he is passing urine. He denies kidney stones or prostate problems, ultrasound of the kidneys that showed the both kidneys of normal size there is ascites present in the abdominal cavity. Review of Systems Constitutional: COMPLAINS OF: Fatigue Gastrointestinal: COMPLAINS OF: Bloody stools Musculoskeletal: COMPLAINS OF: Joint pain Neurologic: COMPLAINS OF: Abnormal gait Psychiatric: COMPLAINS OF: Confusion Past Family Social History Allergies: Coded Allergies: No Known Allergies (Unverified , 02/20/15) Past Medical History Diabetes hyperlipidemia Hypertension Past Surgical History Orthopedic surgery right leg tibia and fibula Reported Medications Reported Meds & Active Scripts Active Reported Sertraline (Sertraline HCl) 50 Mg Tab 50 Mg PO DAILY Fenofibrate 160 Mg Tab 160 Mg PO DAILY Ferrous Sulfate 325 Mg Tab 325 Mg PO TID Metformin (Metformin HCl) 500 Mg Tab 500 Mg PO DAILY With a meal Active Ordered Medications Current Medications Medications (Trade) Dose Ordered Sig/Melania Route Start Time Stop Time Status Last Admin Pantoprazole Sodium 80 mg/ Sodium Chloride 100 ml @ 10 mls/hr Q10H IV 05/02/16 11:45 05/02/16 12:43 Sodium Chloride 250 ml @ 15 mls/hr ONCE ONCE IV 05/02/16 12:15 05/03/16 04:54 05/02/16 13:47 (NS 1000 ml Inj) 1,000 ml @ 100 mls/hr Q10H IV 05/02/16 14:00 05/02/16 13:59 (NS Flush) 2 ml UNSCH PRN FLUSH 05/02/16 14:00 (NS Flush) 2 ml BID FLUSH 05/02/16 21:00 (Tylenol) 650 mg Q4H PRN PO 05/02/16 14:00 (Zofran Inj) 4 mg Q6H PRN IVP 05/02/16 14:00 (Tylenol) 650 mg Q6H PRN PO 05/02/16 14:00 (Narcan Inj) 0.4 mg UNSCH PRN IV 05/02/16 14:00 (D50w (Vial) Inj) 25 ml UNSCH PRN IV PUSH 05/02/16 14:00 (Glucagon Inj) 1 mg UNSCH PRN OTHER 05/02/16 14:00 (Lopressor) 50 mg Q12HR PO 05/02/16 21:00 (Catapres) 0.1 mg Q6H PRN PO 05/02/16 14:30 Family History Noncontributory Social History He smokes a cigar denies alcohol Physical Exam Vital Signs Vital Signs Date Time Temp Pulse Resp B/P Pulse Ox O2 Delivery O2 Flow Rate FiO2 05/02/16 15:18 85 16 187/81 98 Room Air 05/02/16 14:01 97.8 91 16 159/71 98 Room Air 05/02/16 13:59 97.8 91 15 159/71 97 Room Air 05/02/16 13:45 97.6 91 16 180/77 98 Room Air 05/02/16 12:00 90 17 154/70 98 Room Air 05/02/16 11:28 97.4 96 18 140/62 99 Physical Exam GENERAL: Well-nourished, well-developed pale color SKIN: Warm and dry. HEAD: Normocephalic. EYES: No scleral icterus. No injection or drainage. NECK: Supple, trachea midline. No JVD or lymphadenopathy. CARDIOVASCULAR: Regular rate and rhythm without murmurs, gallops, or rubs. RESPIRATORY: Breath sounds equal bilaterally. No accessory muscle use. GASTROINTESTINAL: Abdomen soft, non-tender, distended. EXTREMITIES: No cyanosis, or edema. NEUROLOGICAL: Awake, alert. Non-focal. Laboratory Laboratory Tests Test 05/02/16 05/02/16 05/02/16 05/02/16 11:51 12:14 12:23 12:54 White Blood Count 6.5 Red Blood Count 2.10 Hemoglobin 5.5 Hematocrit 16.6 Mean Corpuscular Volume 79.3 Mean Corpuscular Hemoglobin 26.4 Mean Corpuscular Hemoglobin 33.2 Concent Red Cell Distribution Width 16.9 Platelet Count 111 Mean Platelet Volume 8.5 Neutrophils (%) (Auto) 85.3 Lymphocytes (%) (Auto) 9.4 Monocytes (%) (Auto) 4.9 Eosinophils (%) (Auto) 0.1 Basophils (%) (Auto) 0.3 Neutrophils # (Auto) 5.6 Lymphocytes # (Auto) 0.6 Monocytes # (Auto) 0.3 Eosinophils # (Auto) 0.0 Basophils # (Auto) 0.0 CBC Comment DIFF FINAL Differential Comment Prothrombin Time 17.7 Prothromb Time International 1.6 Ratio Activated Partial 27.9 Thromboplast Time Urine Color YELLOW Urine Turbidity CLEAR Urine pH 5.0 Urine Specific [place] 1.016 Urine Protein NEG Urine Glucose (UA) NEG Urine Ketones NEG Urine Occult Blood TRACE Urine Nitrite NEG Urine Bilirubin NEG Urine Urobilinogen LESS THAN 2.0 Urine Leukocyte Esterase NEG Urine RBC 4 Urine WBC 1 Urine Squamous Epithelial <1 Cells Urine Bacteria RARE Urine Hyaline Casts 6 Microscopic Urinalysis Comment CULT NOT INDICATED Sodium Level 140 Potassium Level 5.1 Chloride Level 107 Carbon Dioxide Level 23.3 Anion Gap 10 Blood Urea Nitrogen 96 Creatinine 2.26 Estimat Glomerular Filtration 29 Rate Random Glucose 194 Calcium Level 8.8 Total Bilirubin 1.9 Aspartate Amino Transf 63 (AST/SGOT) Alanine Aminotransferase 29 (ALT/SGPT) Alkaline Phosphatase 73 Total Creatine Kinase 195 Troponin I LESS THAN 0.02 Total Protein 6.5 Albumin 2.4 Lipase 105 Blood Type O POSITIVE O POSITIVE Antibody Screen NEGATIVE Blood Bank Comment Crossmatch Leukocyte-Reduced Red Blood Cells Result Diagram: 05/02/16 1151 05/02/16 1151 Imaging Last Impressions Head CT 05/02/16 1140 Signed Impressions: Service Date/Time: Monday, May 02, 2016 12:10 - CONCLUSION: Normal examination for a patient of this age. No significant change has occurred. Fabian Wilcox MD Chest X-Ray 05/02/16 1140 Signed Impressions: Service Date/Time: Monday, May 02, 2016 12:12 - CONCLUSION: Normal examination for a patient of this age. No significant change has occurred. Fabian Wilcox MD Cervical Spine CT 05/02/16 1140 Signed Impressions: Service Date/Time: Monday, May 02, 2016 12:10 - CONCLUSION: No acute bony injury. Mild degenerative changes as described Fabian Wilcox MD Renal Ultrasound 05/02/16 0000 Signed Impressions: Service Date/Time: Monday, May 02, 2016 14:36 - CONCLUSION: Negative ultrasound of the kidneys. Bladder is intact. Moderate amount of ascitic free fluid in the abdomen Fabian Wilcox MD Assessment and Plan Problem List: (1) RAMON (acute kidney injury) Plan: Patient has dehydration and he is getting packed red blood cells and hydration agree with current management. His renal functions were better in 2014 creatinine 1.14-1.4 and we will continue to monitor at this point to just repeat BMP in the morning Avoid nephrotoxins (2) GI bleed Plan: GI consult (3) Diabetes mellitus Plan: Follow blood glucose (4) Elevated LFTs Plan: Previous to have ascites (5) Coagulopathy Plan: INR elevated at 1.6 Problem Qualifiers (1) GI bleed: Qualified Code: K92.2 - Gastrointestinal hemorrhage, unspecified gastrointestinal hemorrhage type (2) Diabetes mellitus: Deshaun Calero MD May 02, 2016 18:24
[2016-05-02] MEDS: METOPROLOL TARTRATE 50 MG TAB PO SCH (21:00)
[2016-05-02] MEDS: SODIUM CHLORIDE 0.9% FLUSH 5 ML FLUSH FLUSH SCH (21:30)
--- NOTE | 2016-05-02 23:17 | EKG ---
Date Performed: 05/02/2016 Time Performed: 12:03:18 PTAGE: 75 years EKG: Sinus rhythm NORMAL ECG PREVIOUS TRACING : 02/20/2015 13.31 Compared to the previous tracing, rate has decreased DOCTOR: Matt Blair Interpretating Date/Time 05/02/2016 23:16:01
[2016-05-03] VITALS (9 sets, daily range): BP systolic 50–199; BP diastolic 41–88; PULSE 62–84; RESP 16–20; TEMP 95.6–98.4; O2SAT 96–100
[2016-05-03] MEDS: INSULIN ASPART SUPPLEMENTAL SCALE SQ SCH ×4 (07:00→21:00)
[2016-05-03] MEDS: PANTOPRAZOLE INJ 80 MG in SODIUM CHLORIDE 0.9% INJ 100 ML IV SCH ×2 (07:45→17:16)
--- NOTE | 2016-05-03 08:45 | HHI.PR ---
Subjective Remarks Follow-up GI bleed, anemia, chronic kidney disease stage III 05/03/16-patient seen and examined, no acute event overnight alert however still confused. Patient initially refused panendoscopy per gastroenterology notes however this morning he is willing to proceed with procedures. He was transfused 2 units packed red blood cell Objective Vitals Vital Signs Date Time Temp Pulse Resp B/P Pulse Ox O2 Delivery O2 Flow Rate FiO2 05/03/16 04:37 97.7 81 18 155/77 100 05/03/16 04:00 97.7 81 19 155/77 100 05/03/16 00:00 97.4 84 20 147/69 99 05/02/16 22:25 96.7 84 16 136/65 100 05/02/16 22:18 95.9 84 18 75/62 100 05/02/16 15:18 85 16 187/81 98 Room Air 05/02/16 15:00 97.8 92 20 194/61 99 05/02/16 14:01 97.8 91 16 159/71 98 Room Air 05/02/16 13:59 97.8 91 15 159/71 97 Room Air 05/02/16 13:45 97.6 91 16 180/77 98 Room Air 05/02/16 12:00 90 17 154/70 98 Room Air 05/02/16 11:28 97.4 96 18 140/62 99 Result Diagram: 05/02/16 1151 05/02/16 1151 Imaging Last Impressions Head CT 05/02/16 1140 Signed Impressions: Service Date/Time: Monday, May 02, 2016 12:10 - CONCLUSION: Normal examination for a patient of this age. No significant change has occurred. Fabian Wilcox MD Chest X-Ray 05/02/16 1140 Signed Impressions: Service Date/Time: Monday, May 02, 2016 12:12 - CONCLUSION: Normal examination for a patient of this age. No significant change has occurred. Fabian Wilcox MD Cervical Spine CT 05/02/16 1140 Signed Impressions: Service Date/Time: Monday, May 02, 2016 12:10 - CONCLUSION: No acute bony injury. Mild degenerative changes as described Fabian Wilcox MD Renal Ultrasound 05/02/16 0000 Signed Impressions: Service Date/Time: Monday, May 02, 2016 14:36 - CONCLUSION: Negative ultrasound of the kidneys. Bladder is intact. Moderate amount of ascitic free fluid in the abdomen Fabian Wilcox MD Objective Remarks GENERAL: NAD SKIN: Warm and dry. Some ecchymosis to upper extremities HEAD: Normocephalic. EYES: No scleral icterus. No injection or drainage. NECK: Supple, trachea midline. No JVD or lymphadenopathy. CARDIOVASCULAR: Regular rate and rhythm without murmurs, gallops, or rubs. RESPIRATORY: Breath sounds equal bilaterally. No accessory muscle use. GASTROINTESTINAL: Abdomen soft, non-tender, distended. MUSCULOSKELETAL: No cyanosis, or edema. BACK: Nontender without obvious deformity. No CVA tenderness. A/P Problem List: (1) GI bleed ICD Code: K92.2 Status: Acute (2) Microcytic hypochromic anemia ICD Code: D50.9 Status: Acute (3) Symptomatic anemia ICD Code: D64.9 Status: Acute (4) Toxic metabolic encephalopathy ICD Code: G92 Status: Acute (5) Hyperlipidemia ICD Code: E78.5 Status: Acute (6) Hypertension ICD Code: I10 Status: Acute (7) Thrombocytopenia ICD Code: D69.6 Status: Acute (8) Ascites ICD Code: R18.8 Status: Acute (9) Coagulopathy ICD Code: D68.9 Status: Acute Assessment and Plan 75-year-old male with 1-GI bleed: H&H on admission 5.5 /16.6 with a positive fecal occult blood test. Gastroenterology has been consulted for evaluation however patient initially refused panendoscopy. This morning, he was willing to proceed with procedures. Continue with Protonix drip 2-Symptomatic anemia: Transfused 2 units packed red blood cell. H&H pending this morning 3-Coagulopathy with elevated AST: Denies any prior history of liver disease, liver PENDING 4-Acute on chronic kidney disease stage III: Last BUN/creatinine 02/20/15 off 27 /1.4 and now 96/2.26. Maybe secondary to dehydration versus anemia, and renal ultrasound was negative. Appreciate input from nephrology. 5-Toxic metabolic encephalopathy: Now resolving, head CT without any acute finding. Chest x-ray negative. 6-Diabetes type 2: Hold oral hypoglycemic agent, continue medium sliding scale insulin. Check A1c 7-Labile benign hypertension: Continue with Lopressor 50 mg by mouth twice a day , clonidine when necessary 8-Hyperlipidemia: Check lipid profile, on statin 10-DVT prophylaxis: Bilateral SCDs, chemical anti-prophylactic contraindicated Problem Qualifiers (1) GI bleed: Qualified Code: K92.2 - Gastrointestinal hemorrhage, unspecified gastrointestinal hemorrhage type Bob Mitchell MD May 03, 2016 08:45
[2016-05-03 09:00] LABS: AUTOMATED NEUTROPHIL # 2.9 TH/MM3 (1.8-7.7); BASOPHIL % 0.3 % (0.0-2.0); EOSINOPHIL % 0.4 % (0.0-4.0); HEMATOCRIT 23.8 % (39.0-51.0); LYMPH % 9.8 % (9.0-44.0); LYMPHOCYTE # 0.3 TH/MM3 (1.0-4.8); MEAN CELL VOLUME 83.7 FL (80.0-100.0); MEAN CORPUSCULAR HEMOGLOBIN 27.8 PG (27.0-34.0); MEAN CORPUSCULAR HGB CONC 33.2 % (32.0-36.0); MONO % 6.5 % (0.0-8.0); PLATELET COUNT 71 TH/MM3 (150-450); RED BLOOD COUNT 2.84 MIL/MM3 (4.50-5.90); RED CELL DISTRIBUTION WIDTH 17.8 % (11.6-17.2); WHITE BLOOD COUNT 3.5 TH/MM3 (4.0-11.0)
[2016-05-03] MEDS: METOPROLOL TARTRATE 50 MG TAB PO SCH ×2 (09:01→22:02)
[2016-05-03] MEDS: SODIUM CHLORIDE 0.9% FLUSH 5 ML FLUSH FLUSH SCH ×2 (09:01→21:00)
[2016-05-03] MEDS: SODIUM CHLOR 0.9% 1000 ML INJ 1,000 ML IV SCH ×3 (09:01→20:00)
[2016-05-03 09:17] LABS: ALKALINE PHOSPHATASE 81 U/L (45-117); ALT (GPT) 29 U/L (12-78); ANION GAP 9 MEQ/L (5-15); AST (GOT) 48 U/L (15-37); BICARBONATE 21.9 MEQ/L (21.0-32.0); BLOOD UREA NITROGEN 82 MG/DL (7-18); CHLORIDE 110 MEQ/L (98-107); GLOMERULAR FILTRATION RATE 37 ML/MIN (>89); POTASSIUM 4.3 MEQ/L (3.5-5.1); SODIUM (NA) 141 MEQ/L (136-145); TOTAL BILIRUBIN ADULT 2.4 MG/DL (0.2-1.0)
[2016-05-03 09:44] LABS: HEMO FLAGS AUTO DIFF
[2016-05-03 09:45] LABS: PLATELET ESTIMATE SMEAR LOW (NORMAL); PLATELET MORPHOLOGY NORMAL (NORMAL); SCAN/DIFF AUTO DIFF CONFIRMED
--- NOTE | 2016-05-03 14:28 | RADRPT ---
EXAM DATE/TIME: 05/03/2016 10:24 [place] COMPARISON: No previous studies available for comparison. INDICATIONS : Jaundice. MEDICAL HISTORY : Hypercholesterolemia. Hypertension. Arthritis. Melena. Diabetes. SURGICAL HISTORY : Right leg surgery. ENCOUNTER: Initial ACUITY: 1 day PAIN SCORE: 5/10 LOCATION: Bilateral upper quadrant MEASUREMENTS: LIVER: 18.5 cm length COMMON DUCT: Non-visualized RIGHT KIDNEY: 11.1 X 5.1 X 5.0 cm SPLEEN: 16.6 X 9.9 cm cm length FINDINGS: LIVER: Mildly heterogeneous echotexture in the liver. Hepatopedal flow is seen within the main portal vein, but there is at least one intrahepatic portal vein which demonstrates absent flow. No evidence of b iliary ductal dilatation. No solid lesions. Moderate amount of ascites is seen about the liver. COMMON DUCT: No intraluminal mass or stone visualized. GALLBLADDER: There is a focal echogenic area near the neck of the gallbladder which measures 6 x 7 mm which may re present a non-mobile stone. There is also diffuse sludge within the lumen of gallbladder. PANCREAS: The visualized portions are within normal limits. RIGHT KIDNEY: No hydronephrosis, stone or mass. SPLEEN: No focal lesion. CONCLUSION: 1. Abnormal appearance to liver with hepatomegaly, heterogeneous echotexture, absent flow in at least one intrahepatic portal vein, and moderate upper abdominal ascites. 2. Sludge within the gallbladder and focal echogenic area near the neck may represent a non-mobile st one. Salvatore Allen MD on May 03, 2016 at 14:09 Board Certified Radiologist. This report was verified electronically.
[2016-05-03] MEDS ORDERED: PROPOFOL 200 MG/20 ML AMP IV ONE (15:25)
--- NOTE | 2016-05-03 15:30 | HHI.GIFU ---
Subjective Remarks more awake and oriented, he agreed to EGD today, no more bleeding, HGb stable but still low Objective Vitals I&O Vital Signs Date Time Temp Pulse Resp B/P Pulse Ox O2 Delivery O2 Flow Rate FiO2 05/03/16 15:05 97.5 58 16 94/49 98 05/03/16 11:50 97.5 69 20 163/88 99 05/03/16 10:07 98 05/03/16 07:50 97.7 81 20 199/76 98 05/03/16 04:37 97.7 81 18 155/77 100 05/03/16 04:00 97.7 81 19 155/77 100 05/03/16 00:00 97.4 84 20 147/69 99 05/02/16 22:25 96.7 84 16 136/65 100 05/02/16 22:18 95.9 84 18 75/62 100 I/O 05/02/16 05/02/16 05/02/16 05/03/16 05/03/16 05/03/16 07:00 15:00 23:00 07:00 15:00 23:00 Intake Total 1800 ml 200 ml Balance 1800 ml 200 ml Intake IV Total 1800 ml Other 200 ml Laboratory Laboratory Tests Test 05/02/16 05/03/16 18:04 08:25 Total Creatine Kinase 167 White Blood Count 3.5 Red Blood Count 2.84 Hemoglobin 7.9 Hematocrit 23.8 Mean Corpuscular Volume 83.7 Mean Corpuscular Hemoglobin 27.8 Mean Corpuscular Hemoglobin 33.2 Concent Red Cell Distribution Width 17.8 Platelet Count 71 Mean Platelet Volume 8.1 Neutrophils (%) (Auto) 83.0 Lymphocytes (%) (Auto) 9.8 Monocytes (%) (Auto) 6.5 Eosinophils (%) (Auto) 0.4 Basophils (%) (Auto) 0.3 Neutrophils # (Auto) 2.9 Lymphocytes # (Auto) 0.3 Monocytes # (Auto) 0.2 Eosinophils # (Auto) 0.0 Basophils # (Auto) 0.0 CBC Comment AUTO DIFF Differential Comment AUTO DIFF CONFIRMED Platelet Estimate LOW Platelet Morphology Comment NORMAL Sodium Level 141 Potassium Level 4.3 Chloride Level 110 Carbon Dioxide Level 21.9 Anion Gap 9 Blood Urea Nitrogen 82 Creatinine 1.81 Estimat Glomerular Filtration 37 Rate Random Glucose 164 Calcium Level 8.5 Total Bilirubin 2.4 Aspartate Amino Transf 48 (AST/SGOT) Alanine Aminotransferase 29 (ALT/SGPT) Alkaline Phosphatase 81 Total Protein 6.6 Albumin 2.4 Physical Exam HEENT: Pupils round and reactive to light; normocephalic; atraumatic; mild jaundice. Throat is clear. NECK: Neck is supple, no JVD, no lymphadenopathy. CHEST: Chest is clear to auscultation and percussion. CARDIAC: Regular rate and rhythm with no murmur gallop or rubs. ABDOMEN: Soft, mild distended, nontender; mild hepatosplenomegaly; bowel sounds are present in all four quadrants. EXTREMITIES: No clubbing, cyanosis, or edema. has some spiders SKIN: Normal; no rash; spiders on truck AUTOMATIC HEMMER: No focal deficits; alert and oriented times three. Assessment and Plan Assessment: (1) Anemia Plan: Secondary to GI bleed H&H is 5.5/16.6 Transfuse PRBCs to keep Hgb > 7.0 (2) Altered mental status (3) GI bleed (4) Thrombocytopenia Plan: Chronic (5) Elevated LFTs Plan: will recheck in am US RUQ Plan This is a 75 year old male admitted with severe anemia with H&H of 5.5/16.6, has PMH of chronic anemia, thrombocytopenia. He denies abdominal pain, or any other GI symptoms. He appears to have ascites, multiple ecchymotic areas on his arms and jaundice. He is a poor historian. Thinks he had a colonoscopy about 3 years ago does not remember the results. Does not remember having an EGD, discussed procedures with the patient such as an EGD and colonoscopy and he declines procedures at this time. He has chronic kidney disease and BUN is 96 creatinine is 2.26. 2 doing ok, US C/W cirrhosis, no sign of active bleed now , EGD showed grade 3 esophageal varices, three columns no active bleed. banding not done because of anemia and low PLt and high INR Plan -Transfuse PRBC's to keep Hgb > 7.0 -Follow serial H&H -Recheck LF'Ts in am -continue Beta Clem -Continue PPI -poor prognosis - Banding in few wks when no ETOH and coagulopathy is better unless more bleeding Problem Qualifiers (1) Altered mental status: Qualified Code: R41.82 - Altered mental status, unspecified altered mental status type (2) GI bleed: Qualified Code: K92.2 - Gastrointestinal hemorrhage, unspecified gastrointestinal hemorrhage type Nas Fontana MD May 03, 2016 15:30
[2016-05-03 16:46] LABS: HEMOGLOBIN A1a 1.1 %; HEMOGLOBIN A1b 1.7 %; HEMOGLOBIN Ao 84.6 %; HEMOGLOBIN LA1C 2.3 %; HEMOGLOBIN P3 4.2 %
[2016-05-04 00:32] VITALS: BP 138/63; PULSE 65; RESP 16; TEMP 96.9; O2SAT 97
[2016-05-04] MEDS: PANTOPRAZOLE INJ 80 MG in SODIUM CHLORIDE 0.9% INJ 100 ML IV SCH (00:43)
[2016-05-04 04:00] VITALS: BP 153/65; PULSE 70; RESP 16; TEMP 95.7; O2SAT 99
[2016-05-04] MEDS: SODIUM CHLOR 0.9% 1000 ML INJ 1,000 ML IV SCH ×2 (04:48→16:30)
[2016-05-04] MEDS: INSULIN ASPART SUPPLEMENTAL SCALE SQ SCH ×3 (04:50→16:33)
[2016-05-04 07:51] LABS: INTERNATIONAL NORMALIZED RATIO 1.4 RATIO; PROTHROMBIN TIME - PATIENT 15.6 SEC (9.8-11.6)
[2016-05-04 07:53] LABS: AUTOMATED NEUTROPHIL # 4.7 TH/MM3 (1.8-7.7); BASOPHIL % 0.3 % (0.0-2.0); EOSINOPHIL % 0.4 % (0.0-4.0); HEMATOCRIT 27.2 % (39.0-51.0); LYMPH % 5.6 % (9.0-44.0); LYMPHOCYTE # 0.3 TH/MM3 (1.0-4.8); MEAN CELL VOLUME 85.6 FL (80.0-100.0); MEAN CORPUSCULAR HEMOGLOBIN 27.9 PG (27.0-34.0); MEAN CORPUSCULAR HGB CONC 32.6 % (32.0-36.0); MONO % 6.3 % (0.0-8.0); NEUT % 87.4 % (16.0-70.0); PLATELET COUNT 68 TH/MM3 (150-450); RED BLOOD COUNT 3.18 MIL/MM3 (4.50-5.90); WHITE BLOOD COUNT 5.3 TH/MM3 (4.0-11.0)
[2016-05-04 08:00] VITALS: BP 125/60; PULSE 61; RESP 22; TEMP 97.6; O2SAT 97
[2016-05-04 08:00] LABS: HEMO FLAGS AUTO DIFF
[2016-05-04 08:23] LABS: ALKALINE PHOSPHATASE 77 U/L (45-117); ALT (GPT) 26 U/L (12-78); ANION GAP 8 MEQ/L (5-15); AST (GOT) 43 U/L (15-37); BICARBONATE 21.8 MEQ/L (21.0-32.0); BLOOD UREA NITROGEN 67 MG/DL (7-18); CHLORIDE 111 MEQ/L (98-107); GLOMERULAR FILTRATION RATE 41 ML/MIN (>89); POTASSIUM 4.1 MEQ/L (3.5-5.1); SODIUM (NA) 141 MEQ/L (136-145); TOTAL BILIRUBIN ADULT 2.2 MG/DL (0.2-1.0)
[2016-05-04 08:57] LABS: PLATELET ESTIMATE SMEAR LOW (NORMAL); PLATELET MORPHOLOGY NORMAL (NORMAL); SCAN/DIFF AUTO DIFF CONFIRMED
[2016-05-04] MEDS: SODIUM CHLORIDE 0.9% FLUSH 5 ML FLUSH FLUSH SCH (09:00)
[2016-05-04] MEDS: METOPROLOL TARTRATE 50 MG TAB PO SCH (09:24)
[2016-05-04 09:51] VITALS: BP 125/60
--- NOTE | 2016-05-04 10:28 | HHI.GIFU ---
Subjective Remarks Resting in bed. No n/v. No bleeding. Denies abdominal pain. Objective Vitals I&O Vital Signs Date Time Temp Pulse Resp B/P Pulse Ox O2 Delivery O2 Flow Rate FiO2 05/04/16 08:00 97.6 61 22 125/60 97 05/04/16 04:00 95.7 70 16 153/65 99 05/04/16 00:32 96.9 65 16 138/63 97 05/03/16 20:00 95.6 63 16 141/63 99 05/03/16 15:50 97.6 62 20 143/68 98 05/03/16 15:25 59 18 130/59 98 05/03/16 15:15 58 16 112/53 98 05/03/16 15:05 97.5 58 16 94/49 98 05/03/16 11:50 97.5 69 20 163/88 99 I/O 05/03/16 05/03/16 05/03/16 05/04/16 05/04/16 05/04/16 07:00 15:00 23:00 07:00 15:00 23:00 Intake Total 2160 ml 200 ml 780 ml 956 ml Output Total 1500 ml Balance 2160 ml 200 ml -720 ml 956 ml Intake Oral 360 ml 780 ml 956 ml IV Total 1800 ml Other 200 ml Output Urine Total 1500 ml # Voids 4 1 1 # Bowel Movements 4 1 Laboratory Laboratory Tests Test 05/04/16 07:20 White Blood Count 5.3 Red Blood Count 3.18 Hemoglobin 8.9 Hematocrit 27.2 Mean Corpuscular Volume 85.6 Mean Corpuscular Hemoglobin 27.9 Mean Corpuscular Hemoglobin 32.6 Concent Red Cell Distribution Width 18.0 Platelet Count 68 Mean Platelet Volume 7.8 Neutrophils (%) (Auto) 87.4 Lymphocytes (%) (Auto) 5.6 Monocytes (%) (Auto) 6.3 Eosinophils (%) (Auto) 0.4 Basophils (%) (Auto) 0.3 Neutrophils # (Auto) 4.7 Lymphocytes # (Auto) 0.3 Monocytes # (Auto) 0.3 Eosinophils # (Auto) 0.0 Basophils # (Auto) 0.0 CBC Comment AUTO DIFF Differential Comment AUTO DIFF CONFIRMED Platelet Estimate LOW Platelet Morphology Comment NORMAL Prothrombin Time 15.6 Prothromb Time International 1.4 Ratio Sodium Level 141 Potassium Level 4.1 Chloride Level 111 Carbon Dioxide Level 21.8 Anion Gap 8 Blood Urea Nitrogen 67 Creatinine 1.65 Estimat Glomerular Filtration 41 Rate Random Glucose 143 Calcium Level 8.0 Total Bilirubin 2.2 Aspartate Amino Transf 43 (AST/SGOT) Alanine Aminotransferase 26 (ALT/SGPT) Alkaline Phosphatase 77 Total Protein 6.1 Albumin 2.2 Imaging Last Impressions Liver Ultrasound 05/03/16 0000 Signed Impressions: Service Date/Time: April 10:24 - CONCLUSION: 1. Abnormal appearance to liver with hepatomegaly, heterogeneous echotexture, absent flow in at least one intrahepatic portal vein, and moderate upper abdominal ascites. 2. Sludge within the gallbladder and focal echogenic area near the neck may represent a non-mobile stone. Salvatore Allen MD Head CT 05/02/16 1140 Signed Impressions: Service Date/Time: Monday, May 02, 2016 12:10 - CONCLUSION: Normal examination for a patient of this age. No significant change has occurred. Fabian Wilcox MD Chest X-Ray 05/02/16 1140 Signed Impressions: Service Date/Time: Monday, May 02, 2016 12:12 - CONCLUSION: Normal examination for a patient of this age. No significant change has occurred. Fabian Wilcox MD Cervical Spine CT 05/02/16 1140 Signed Impressions: Service Date/Time: Monday, May 02, 2016 12:10 - CONCLUSION: No acute bony injury. Mild degenerative changes as described Fabian Wilcox MD Renal Ultrasound 05/02/16 0000 Signed Impressions: Service Date/Time: Monday, May 02, 2016 14:36 - CONCLUSION: Negative ultrasound of the kidneys. Bladder is intact. Moderate amount of ascitic free fluid in the abdomen Fabian Wilcox MD Physical Exam HEENT: Normocephalic; atraumatic; mild jaundice. Throat is clear. NECK: Neck is supple, no JVD, no lymphadenopathy. CHEST: CTA CARDIAC: RRR ABDOMEN: Soft, mild distended, nontender; mild hepatosplenomegaly; bowel sounds are present in all four quadrants. Ascites EXTREMITIES: No clubbing, cyanosis, or edema. has some spiders SKIN: Normal; no rash ELECTRICIAN THIRD: No focal deficits; alert and oriented times three. Assessment and Plan Plan ASSESSMENT: - GIB, Upper. S/P EGD (05/03/16)-----> EGD showed grade 3 esophageal varices, three columns no active bleed. Banding not done because of anemia and low PLt and high INR. No active bleeding. - Anemia, acute blood loss. S/P 2 units PRBC. 8.9/27.2. - Coagulopathy/Thrombocytopenia. S/P 2 units FFP. Plt. 68. - Ascites. No discomfort, fever, chills. - Liver cirrhosis. Liver Ultrasound (05/03/16)----> 1. Abnormal appearance to liver with hepatomegaly, heterogeneous echotexture, absent flow in at least one intrahepatic portal vein, and moderate upper abdominal ascites. 2. Sludge within the gallbladder and focal echogenic area near the neck may represent a non-mobile stone. T. Bili 2.2, AST 43, ALT 26, Alk Phosph 77,. - AMS improved. Plan - Low salt diet - D/C protonix gtt - Protonix 40mg po BID - Monitor HH - On BB - Banding in few wks when no ETOH and coagulopathy is better unless more bleeding - Supportive care - Further recommendations to follow based on results of above - Pt seen and examined by Dr. Fontana and myself and this note is written on his behalf Lia Akhtar May 04, 2016 10:28
--- NOTE | 2016-05-04 10:58 | HHI.NPPN ---
Subjective History of Present Illness 75 year old with gi bleed, ARF, Esophageal varices were found EGD, abnormal liver US Review of Systems General Constitutional: Fatigue Objective Data Data 05/03/16 05/04/16 19:00 07:00 Intake Total 2360 ml 780 ml Output Total 1500 ml Balance 2360 ml -720 ml Intake Oral 360 ml 780 ml IV Total 1800 ml Other 200 ml Output Urine Total 1500 ml # Voids 4 1 # Bowel Movements 4 1 Vital Signs Date Time Temp Pulse Resp B/P Pulse Ox O2 Delivery O2 Flow Rate FiO2 05/04/16 08:00 97.6 61 22 125/60 97 05/04/16 04:00 95.7 70 16 153/65 99 05/04/16 00:32 96.9 65 16 138/63 97 05/03/16 20:00 95.6 63 16 141/63 99 05/03/16 15:50 97.6 62 20 143/68 98 05/03/16 15:25 59 18 130/59 98 05/03/16 15:15 58 16 112/53 98 05/03/16 15:05 97.5 58 16 94/49 98 05/03/16 11:50 97.5 69 20 163/88 99 -: 05/04/16 0720 05/04/16 0720 Physical Exam General Appearance: Well Developed Neck Neck Exam: Neck Supple Pulmonary Resp Exam: Clear Bilaterally, Breath Sounds Equal Cardiology CV Exam: Regular, Normal Sinus Rhythm Gastrointestinal/Abdomen GI Exam: Soft, Non-Tender Extremeties Extremities Exam: No Edema Assessment/Plan Problem List: (1) RAMON (acute kidney injury) Plan: Patient has dehydration it is resolving cr 1.6 he has Hepatic issues, variceal bleed gi following nephrology to see PRN bases (2) GI bleed Plan: GI following (3) Diabetes mellitus Plan: Follow blood glucose (4) Elevated LFTs Plan: liver cirrhosis and ascites (5) Coagulopathy Plan: INR now 1.4 Problem Qualifiers (1) GI bleed: Qualified Code: K92.2 - Gastrointestinal hemorrhage, unspecified gastrointestinal hemorrhage type (2) Diabetes mellitus: Deshaun Calero MD May 04, 2016 10:57
[2016-05-04 11:45] VITALS: BP 136/60; PULSE 60; RESP 20; TEMP 96.6; O2SAT 99
--- NOTE | 2016-05-04 13:03 | HHI.PR ---
Subjective Remarks Follow-up GI bleed, anemia, chronic kidney disease stage III 05/03/16-patient seen and examined, no acute event overnight alert however still confused. Patient initially refused panendoscopy per gastroenterology notes however this morning he is willing to proceed with procedures. He was transfused 2 units packed red blood cell 05/04/16-patient seen and examined, stable and no more GI bleed. Alert and oriented. Family at the bedside. Case discussed with correctional case manager regarding discharge disposition Objective Vitals Vital Signs Date Time Temp Pulse Resp B/P Pulse Ox O2 Delivery O2 Flow Rate FiO2 05/04/16 11:45 96.6 60 20 136/60 99 05/04/16 09:51 125/60 05/04/16 08:00 97.6 61 22 125/60 97 05/04/16 04:00 95.7 70 16 153/65 99 05/04/16 00:32 96.9 65 16 138/63 97 05/03/16 20:00 95.6 63 16 141/63 99 05/03/16 15:50 97.6 62 20 143/68 98 05/03/16 15:25 59 18 130/59 98 05/03/16 15:15 58 16 112/53 98 05/03/16 15:05 97.5 58 16 94/49 98 I/O 05/03/16 05/03/16 05/03/16 05/04/16 05/04/16 05/04/16 07:00 15:00 23:00 07:00 15:00 23:00 Intake Total 2160 ml 200 ml 780 ml 1676 ml Output Total 1500 ml Balance 2160 ml 200 ml -720 ml 1676 ml Intake Oral 360 ml 780 ml 1676 ml IV Total 1800 ml Other 200 ml Output Urine Total 1500 ml # Voids 4 1 2 # Bowel Movements 4 1 1 Result Diagram: 05/04/16 0720 05/04/16 0720 Imaging Last Impressions Liver Ultrasound 05/03/16 0000 Signed Impressions: Service Date/Time: April 10:24 - CONCLUSION: 1. Abnormal appearance to liver with hepatomegaly, heterogeneous echotexture, absent flow in at least one intrahepatic portal vein, and moderate upper abdominal ascites. 2. Sludge within the gallbladder and focal echogenic area near the neck may represent a non-mobile stone. Salvatore Allen MD Head CT 05/02/16 1140 Signed Impressions: Service Date/Time: Monday, May 02, 2016 12:10 - CONCLUSION: Normal examination for a patient of this age. No significant change has occurred. Fabian Wilcox MD Chest X-Ray 05/02/16 1140 Signed Impressions: Service Date/Time: Monday, May 02, 2016 12:12 - CONCLUSION: Normal examination for a patient of this age. No significant change has occurred. Fabian Wilcox MD Cervical Spine CT 05/02/16 1140 Signed Impressions: Service Date/Time: Monday, May 02, 2016 12:10 - CONCLUSION: No acute bony injury. Mild degenerative changes as described Fabian Wilcox MD Renal Ultrasound 05/02/16 0000 Signed Impressions: Service Date/Time: Monday, May 02, 2016 14:36 - CONCLUSION: Negative ultrasound of the kidneys. Bladder is intact. Moderate amount of ascitic free fluid in the abdomen Fabian Wilcox MD Objective Remarks GENERAL: NAD SKIN: Warm and dry. Some ecchymosis to upper extremities HEAD: Normocephalic. EYES: No scleral icterus. No injection or drainage. NECK: Supple, trachea midline. No JVD or lymphadenopathy. CARDIOVASCULAR: Regular rate and rhythm without murmurs, gallops, or rubs. RESPIRATORY: Breath sounds equal bilaterally. No accessory muscle use. GASTROINTESTINAL: Abdomen soft, non-tender, distended. MUSCULOSKELETAL: No cyanosis, or edema. BACK: Nontender without obvious deformity. No CVA tenderness. A/P Problem List: (1) GI bleed ICD Code: K92.2 Status: Acute (2) Microcytic hypochromic anemia ICD Code: D50.9 Status: Acute (3) Symptomatic anemia ICD Code: D64.9 Status: Acute (4) Toxic metabolic encephalopathy ICD Code: G92 Status: Acute (5) Hyperlipidemia ICD Code: E78.5 Status: Acute (6) Hypertension ICD Code: I10 Status: Acute (7) Thrombocytopenia ICD Code: D69.6 Status: Acute (8) Ascites ICD Code: R18.8 Status: Acute (9) Coagulopathy ICD Code: D68.9 Status: Acute Assessment and Plan 75-year-old male with 1-GI bleed: H&H on admission 5.5 /16.6 with a positive fecal occult blood test. Gastroenterology has been consulted and patient is s/p EGD showed grade 3 esophageal varices, three columns no active bleed. Banding not done because of anemia and low PLt and high INR. Will need pending banding of varices and couple weeks. Continue with Protonix PO 40mg BID as drip was discontinued 2-Symptomatic anemia: Transfused 2 units packed red blood cell. 3-Coagulopathy with elevated AST: Denies any prior history of liver disease, liver noted and reviewed with evidence of hepatomegaly and cirrhosis 4-Acute on chronic kidney disease stage III: Last BUN/creatinine 02/20/15 off .4 and admission was 96/2.26. Maybe secondary to dehydration versus anemia, and renal ultrasound was negative. Appreciate input from nephrology and now Cr of 1.65 (05/04/16) 5-Toxic metabolic encephalopathy: Now resolving, head CT without any acute finding. Chest x-ray negative. 6-Diabetes type 2: Resume oral hypoglycemic agent on discharge, continue medium sliding scale insulin. A1c 5.9 7-Labile benign hypertension: Improving and Continue with Lopressor 50 mg by mouth twice a day, clonidine when necessary 8-Hyperlipidemia: , on statin 10-DVT prophylaxis: Bilateral SCDs, chemical anti-prophylactic contraindicated Problem Qualifiers (1) GI bleed: Qualified Code: K92.2 - Gastrointestinal hemorrhage, unspecified gastrointestinal hemorrhage type Bob Mitchell MD May 04, 2016 13:03
[2016-05-04] MEDS ORDERED: METO-309 PO (13:09)
[2016-05-04] MEDS ORDERED: PANT40TA3 PO (13:09)
--- NOTE | 2016-05-04 13:11 | HHI.DS ---
Discharge Summary Admission Date May 02, 2016 at 13:19 Discharge Date: May 04, 2016 Admitting Diagnosis GI Bleed, Severe Anemia, RAMON (1) GI bleed ICD Code: K92.2 (2) Microcytic hypochromic anemia ICD Code: D50.9 (3) Symptomatic anemia ICD Code: D64.9 (4) Toxic metabolic encephalopathy ICD Code: G92 (5) Hyperlipidemia ICD Code: E78.5 (6) Hypertension ICD Code: I10 (7) Thrombocytopenia ICD Code: D69.6 (8) Ascites ICD Code: R18.8 (9) Coagulopathy ICD Code: D68.9 Procedures none Brief History - From Admission 75-year-old male with known history of hypertension, hyperlipidemia, diabetes who was brought to the hospital because of altered mental status. The patient does not recall what happened to him prior to coming to the hospital. Per EMR patient has not been seen for 2 days prior to being brought to the hospital. On admissions, he has H&H of 5.5/16.6, INR of 1.6 and BUN/creatinine of 96/2.[address] was Normal and chest x-ray negative. Patient during my exam was alerted to self, month however no year and could tell who the conditioning room worker is. He denies any hemoptysis or hematuria. He also denies any chest pain or shortness of breath. CBC/BMP: 05/04/16 0720 05/04/16 0720 Significant Findings Laboratory Tests Test 05/02/16 05/03/16 05/04/16 11:51 08:25 07:20 Red Blood Count 2.10 MIL/MM3 2.84 MIL/MM3 3.18 MIL/MM3 (4.50-5.90) (4.50-5.90) (4.50-5.90) Hemoglobin 5.5 GM/DL 7.9 GM/DL 8.9 GM/DL (13.0-17.0) (13.0-17.0) (13.0-17.0) Hematocrit 16.6 % 23.8 % 27.2 % (39.0-51.0) (39.0-51.0) (39.0-51.0) Mean Corpuscular Volume 79.3 FL (80.0-100.0) Mean Corpuscular Hemoglobin 26.4 PG (27.0-34.0) Platelet Count 111 TH/MM3 71 TH/MM3 68 TH/MM3 (150-450) (150-450) (150-450) Neutrophils (%) (Auto) 85.3 % 83.0 % 87.4 % (16.0-70.0) (16.0-70.0) (16.0-70.0) Lymphocytes # (Auto) 0.6 TH/MM3 0.3 TH/MM3 0.3 TH/MM3 (1.0-4.8) (1.0-4.8) (1.0-4.8) Prothrombin Time 17.7 SEC 15.6 SEC (9.8-11.6) (9.8-11.6) Urine Occult Blood TRACE (NEG) Urine RBC 4 /hpf (0-3) Urine Bacteria RARE /hpf (NONE) Blood Urea Nitrogen 96 MG/DL (7-18) 82 MG/DL (7-18) 67 MG/DL (7-18) Creatinine 2.26 MG/DL 1.81 MG/DL 1.65 MG/DL (0.60-1.30) (0.60-1.30) (0.60-1.30) Estimat Glomerular Filtration 29 ML/MIN (>89) 37 ML/MIN (>89) 41 ML/MIN (>89) Rate Random Glucose 194 MG/DL 164 MG/DL 143 MG/DL (74-106) (74-106) (74-106) Total Bilirubin 1.9 MG/DL 2.4 MG/DL 2.2 MG/DL (0.2-1.0) (0.2-1.0) (0.2-1.0) Aspartate Amino Transf 63 U/L (15-37) 48 U/L (15-37) 43 U/L (15-37) (AST/SGOT) Troponin I LESS THAN 0.02 NG/ML (0.02-0.05) Albumin 2.4 GM/DL 2.4 GM/DL 2.2 GM/DL (3.4-5.0) (3.4-5.0) (3.4-5.0) White Blood Count 3.5 TH/MM3 (4.0-11.0) Red Cell Distribution Width 17.8 % 18.0 % (11.6-17.2) (11.6-17.2) Platelet Estimate LOW (NORMAL) LOW (NORMAL) Chloride Level 110 MEQ/L 111 MEQ/L (98-107) (98-107) Lymphocytes (%) (Auto) 5.6 % (9.0-44.0) Calcium Level 8.0 MG/DL (8.5-10.1) Total Protein 6.1 GM/DL (6.4-8.2) Imaging Last Impressions Liver Ultrasound 05/03/16 0000 Signed Impressions: Service Date/Time: April 10:24 - CONCLUSION: 1. Abnormal appearance to liver with hepatomegaly, heterogeneous echotexture, absent flow in at least one intrahepatic portal vein, and moderate upper abdominal ascites. 2. Sludge within the gallbladder and focal echogenic area near the neck may represent a non-mobile stone. Salvatore Allen MD Head CT 05/02/16 1140 Signed Impressions: Service Date/Time: Monday, May 02, 2016 12:10 - CONCLUSION: Normal examination for a patient of this age. No significant change has occurred. Fabian Wilcox MD Chest X-Ray [id number]/02/[id number] Signed Impressions: Service Date/Time: Monday, May 02, 2016 12:12 - CONCLUSION: Normal examination for a patient of this age. No significant change has occurred. Fabian Wilcox MD Cervical Spine CT 05/02/16 1140 Signed Impressions: Service Date/Time: Monday, May 02, 2016 12:10 - CONCLUSION: No acute bony injury. Mild degenerative changes as described Fabian Wilcox MD Renal Ultrasound 05/02/16 0000 Signed Impressions: Service Date/Time: Monday, May 02, 2016 14:36 - CONCLUSION: Negative ultrasound of the kidneys. Bladder is intact. Moderate amount of ascitic free fluid in the abdomen Fabian Wilcox MD PE at Discharge GENERAL: NAD SKIN: Warm and dry. Some ecchymosis to upper extremities HEAD: Normocephalic. EYES: No scleral icterus. No injection or drainage. NECK: Supple, trachea midline. No JVD or lymphadenopathy. CARDIOVASCULAR: Regular rate and rhythm without murmurs, gallops, or rubs. RESPIRATORY: Breath sounds equal bilaterally. No accessory muscle use. GASTROINTESTINAL: Abdomen soft, non-tender, distended. MUSCULOSKELETAL: No cyanosis, or edema. BACK: Nontender without obvious deformity. No CVA tenderness. Hospital Course Patient admitted secondary to severe anemia for which he was transfused 2 units packed red blood cell. Secondary to GI bleed, gastroenterology was consulted and he had EGD performed which showed grade 3 esophageal varices however no banding performed due to anemia and low platelet as well as high INR. He was initially started on Protonix drip however switch to by mouth prior to discharge. Due to acute on chronic kidney disease, nephrology was consulted and patient's was treated with gentle IV fluid hydration with improvement or renal indices. His mentation improved. PT was consulted. He was started on Lopressor 50 mg by mouth every 12 with significant improvement of BP. DVT and GI prophylaxis were provided. Patient was continued on statin. Pt Condition on Discharge: Fair Discharge Disposition: Discharge to SNF Discharge Time: > 30 minutes Discharge Instructions DIET: Follow Instructions for: Diabetic Diet Activities you can perform: Regular-No Restrictions Follow up Referrals: Gastroenterology PCP Follow-up - 2-3 Days New Orders: BASIC METABOLIC PROF - 1 Week CBC WITH DIFF New Medications: Metoprolol Tartrate (Lopressor) 50 Mg Tab 50 MG PO Q12HR Blood Pressure Management #60 TAB Pantoprazole (Pantoprazole) 40 Mg Tab 40 MG PO Q12HR Manage Heartburn #60 TAB Continued Medications: Fenofibrate (Fenofibrate) 160 Mg Tab 160 MG PO DAILY #30 Ref 0 TAB Ferrous Sulfate (Ferrous Sulfate) 325 Mg Tab 325 MG PO TID Nutritional Supplement #30 Ref 0 TAB Metformin (Metformin) 500 Mg Tab 500 MG PO DAILY With a meal Blood Sugar Management #30 Ref 0 TAB Sertraline (Sertraline) 50 Mg Tab 50 MG PO DAILY #30 Ref 0 TAB Bob Mitchell MD May 04, 2016 13:11 Ferrous Sulfate (Ferrous Sulfate) 325 Mg Tab 325 MG PO TID Nutritional Supplement #30 Ref 0 TAB Metformin (Metformin) 500 Mg Tab 500 MG PO DAILY With a meal Blood Sugar Management #30 Ref 0 TAB Sertraline (Sertraline) 50 Mg Tab 50 MG PO DAILY #30 Ref 0 TAB Bob Mitchell MD May 04, 2016 13:11
[2016-05-04 16:00] VITALS: BP 125/56; PULSE 79; RESP 22; TEMP 96.9; O2SAT 97
[2016-05-04] MEDS ORDERED: PANTOPRAZOLE SOD 40 MG DELAYED RELEASE TAB PO SCH (21:00)
== END 2016-05-04 20:12 | DRG 377 ==
LOC: NEPC 11:25 → NEDA 13:19 → HOCB 15:45
PROVIDERS: ADMIT Hospitalist; ATTEND Hospitalist
PROC: 30253K1 (ICD-10-PCS; principal; 2016-05-02)
PROC: 30253N1 (ICD-10-PCS; 2016-05-02)
PROC: 0DJ08ZZ Inspection of Upper Intestinal Tract, Via Natural or Artificial Opening Endoscopic (ICD-10-PCS; 2016-05-04)
DX: K92.2 Gastrointestinal hemorrhage, unspecified (principal); G92 Toxic encephalopathy; N17.9 Acute kidney failure, unspecified; D68.9 Coagulation defect, unspecified; R18.8 Other ascites; E11.22 Type 2 diabetes mellitus with diabetic chronic kidney disease; N18.3 Chronic kidney disease, stage 3 (moderate); D62 Acute posthemorrhagic anemia; D69.6 Thrombocytopenia, unspecified; E78.5 Hyperlipidemia, unspecified; I12.9 Hypertensive chronic kidney disease with stage 1 through stage 4 chronic kidney disease, or unspecified chronic kidney disease; I85.00 Esophageal varices without bleeding; E86.0 Dehydration; F17.290 Nicotine dependence, other tobacco product, uncomplicated; K74.60 Unspecified cirrhosis of liver
CPT/HCPCS: 36430; 70450; 71010; 72125; 76705; 76775; 80053; 81001; 82550; 82948; 83036; 83690; 84484; 85025; 85610; 85730; 86850; 86900; 86901; 86920; 86927; 93005; 96361; 96365; C9113; J1815; J7030; J7050; P9016; P9017; P9612

== ENCOUNTER 2016-05-04 23:19 | Emergency (ER) | payer MEDICARE, OTHER ==
[~2016-05-04] VITALS: Ht 175.3 cm; Wt 75.0 kg
[~2016-05-04 23:19] MED LIST changes: -ALPR.25 PO; -AMLO10 PO; -FERR324T4 PO; +FERR325T PO; -FURO20 PO; -GABA300C3 PO; -HYDRA25 PO; -MELO15TA2 PO; -METF500 PO; +METF500T PO; +METO-309 PO; +PANT40TA3 PO; -POTA10TA15 PO; +SERT-132 PO; -SERT50 PO; -SIMV10 PO; -TRAZ50TA4 PO
[2016-05-04 23:30] VITALS: BP 119/59; PULSE 62; RESP 18; TEMP 97.6; O2SAT 97
--- NOTE | 2016-05-04 23:55 | PD ---
HPI Chief Complaint: 3 day old lacerationjust discovered Time Seen by Provider: 23:45 Travel History International Travel<30 days: No Contact w/Intl Traveler<30days: No Traveled to known affect area: No History of Present Illness HPI The patient is a 75-year-old male that was just discharged today for a GI bleed. When he went to rehabilitation today they noticed an old laceration on his right scalp that was approximately 3 days old. It is a flap that is somewhat dried out and sticking out. The laceration is 3 cm long. PFSH Past Medical History Arthritis: Yes Autoimmune Disease: No Anxiety: Yes Depression: No Heart Rhythm Problems: No Cancer: No Cardiovascular Problems: Yes High Cholesterol: Yes Chest Pain: No Cerebrovascular Accident: No Diabetes: Yes Endocrine: Yes Genitourinary: No Hypertension: Yes Immune Disorder: No Kidney Stones: No Musculoskeletal: Yes Neurologic: Yes Psychiatric: No Reproductive: No Respiratory: No Renal Failure: No Past Surgical History Abdominal Surgery: No Cardiac Surgery: No Genitourinary Surgery: No Gynecologic Surgery: No Thoracic Surgery: No Other Surgery: Yes Social History Alcohol Use: Yes (RARELY) Tobacco Use: Yes (1-2 CIGARS A DAY) Substance Use: No Allergies-Medications (Allergen,Severity, Reaction): Coded Allergies: No Known Allergies (Unverified , 05/04/16) Reported Meds & Prescriptions Reported Meds & Active Scripts Active Pantoprazole (Pantoprazole Sodium) 40 Mg Tab 40 Mg PO Q12HR Lopressor (Metoprolol Tartrate) 50 Mg Tab 50 Mg PO Q12HR Reported Sertraline (Sertraline HCl) 50 Mg Tab 50 Mg PO DAILY Fenofibrate 160 Mg Tab 160 Mg PO DAILY Ferrous Sulfate 325 Mg Tab 325 Mg PO TID Metformin (Metformin HCl) 500 Mg Tab 500 Mg PO DAILY With a meal Review of Systems Except as stated in HPI: all other systems reviewed are Neg Physical Exam Narrative GENERAL: Well-nourished, alert and oriented, elderly patient in no apparent distress. His vital signs are normal. SKIN: Warm and dry. There is a 3 cm flap laceration which is curved and dried out on the edges. No bleeding is present. No evidence of infection is present. It is over the left occipital area. There is no associated bony deformity with the laceration. HEAD: Normocephalic. EYES: No scleral icterus. No injection or drainage. NECK: Supple, trachea midline. No JVD or lymphadenopathy. CARDIOVASCULAR: Regular rate and rhythm without murmurs, gallops, or rubs. RESPIRATORY: Breath sounds equal bilaterally. No accessory muscle use. GASTROINTESTINAL: Abdomen soft, non-tender, nondistended. MUSCULOSKELETAL: No cyanosis, or edema. BACK: Nontender without obvious deformity. No CVA tenderness. Data Data Last Documented VS Vital Signs Date Time Temp Pulse Resp B/P Pulse Ox O2 Delivery O2 Flow Rate FiO2 05/04/16 23:30 97.6 62 18 119/59 97 MDM Medical Decision Making Medical Screen Exam Complete: Yes Emergency Medical Condition: Yes Medical Record Reviewed: Yes Differential Diagnosis 3 day old laceration needing closing, 3 day old laceration not needing sutures/ staple Narrative Course The patient has a 3-day-old flap laceration of the scalp. The sticks out and, although it may not heal, it was apposed with 3 neo. Hopefully, this will prevent it from getting in the way, bleeding on his pillow and possibly even heal. Before stapling this laceration it was thoroughly cleaned and irrigated with saline. Procedures Procedure Narrative The scalp laceration was closed loosely with 3 neo. Before closing it the laceration was copiously irrigated with saline. Diagnosis Primary Impression: Occipital scalp laceration Additional Instructions: This wound is old and can get infected. Return immediately to the emergency department if this happens. The neo come out in 12 days. Med/Other Pt SpecificInfo: No Change to Meds Disposition: 01 DISCHARGE HOME Condition: Stable Wilbert Lyons MD May 04, 2016 23:54
[2016-05-05 00:59] VITALS: BP 119/55; PULSE 62; RESP 18; O2SAT 97
[2016-05-05 04:51] VITALS: BP 121/61; PULSE 65; RESP 18; O2SAT 97
== END 2016-05-05 07:35 | disposition home or self-care (01) ==
LOC: PHED 23:19
DX: S01.01XA Laceration without foreign body of scalp, initial encounter (principal); X58.XXXA Exposure to other specified factors, initial encounter
CPT/HCPCS: 12002

== ENCOUNTER 2016-05-08 09:31 | Inpatient (IN) | payer OTHER, MEDICARE ==
[~2016-05-08] VITALS: Ht 170.2 cm; Wt 97.1 kg
[2016-05-08] VITALS (9 sets, daily range): BP systolic 124–146; BP diastolic 58–88; PULSE 85–95; RESP 14–20; TEMP 98.3–99; O2SAT 96–100
[2016-05-08] MEDS ORDERED: LIDOCAINE HCL 1% 50 ML VIAL INFIL ONE (10:00)
[2016-05-08] MEDS ORDERED: SODIUM CHLORIDE 0.9% FLUSH 5 ML FLUSH IVF PRN (10:00)
--- NOTE | 2016-05-08 10:05 | PD ---
HPI Chief Complaint: Altered Mental Status Time Seen by Provider: 09:43 Travel History International Travel<30 days: No Contact w/Intl Traveler<30days: No Traveled to known affect area: No History of Present Illness HPI This 75-year-old man who presents to the emergency department brought in from [facility] with altered mental status. Patient was recently admitted to the hospital on November 30 after he was found down at home. He was found to have cirrhosis, severe GI bleed and marked anemia, acute kidney injury. He had an EGD done that showed esophageal varices. He was given blood transfusions, monitoring the ICU, IV fluid rehydration, was discharged on the , 4 days ago. He presents to the emergency department [facility] with worsening mental status changes. This initially he was a 4, and is gotten progressively more confused. He said more abdominal distention as well. He started lactulose yesterday which hasn't seemed to help. History Past Medical History Narrative Medical Cirrhosis, varices Hypertension Hyperlipidemia Chronic kidney disease Diabetes Social History Alcohol Use: Yes (RARELY) Tobacco Use: Yes (1-2 CIGARS A DAY) Allergies-Medications (Allergen,Severity, Reaction): Coded Allergies: No Known Allergies (Unverified , 05/04/16) Reported Meds & Prescriptions Reported Meds & Active Scripts Active Pantoprazole (Pantoprazole Sodium) 40 Mg Tab 40 Mg PO Q12HR Lopressor (Metoprolol Tartrate) 50 Mg Tab 50 Mg PO Q12HR Reported Sertraline (Sertraline HCl) 50 Mg Tab 50 Mg PO DAILY Fenofibrate 160 Mg Tab 160 Mg PO DAILY Ferrous Sulfate 325 Mg Tab 325 Mg PO TID Metformin (Metformin HCl) 500 Mg Tab 500 Mg PO DAILY With a meal Review of Systems Except as stated in HPI: all other systems reviewed are Neg Physical Exam Narrative GENERAL: 74-year-old man, ill-appearing. SKIN: Warm and dry. Some pallor. HEAD: Atraumatic. Normocephalic. EYES: Pupils equal and round. No scleral icterus. No injection or drainage. ENT: No nasal bleeding or discharge. Mucous membranes pink and moist. NECK: Trachea midline. No JVD. CARDIOVASCULAR: Regular rate and rhythm. No murmur appreciated. RESPIRATORY: No accessory muscle use. Clear to auscultation. Breath sounds equal bilaterally. GASTROINTESTINAL: Abdomen is taut and distended. Denies pain but grimaces with any palpation of the abdomen. MUSCULOSKELETAL: No obvious deformities. Some edema both lower extremities. NEUROLOGICAL: Awake but decreased alertness. Moans and groans. Doesn't really answer questions appropriately. Moves all extremities. Data Data Last Documented VS Vital Signs Date Time Temp Pulse Resp B/P Pulse Ox O2 Delivery O2 Flow Rate FiO2 05/08/16 12:03 85 18 136/88 100 Room Air 05/08/16 09:43 99.0 Orders Ammonia (05/08/16 09:47) Complete Blood Count With Diff (05/08/16 09:47) Comprehensive Metabolic Panel (05/08/16 09:47) Prothrombin Time / Inr (Pt) (05/08/16 09:47) Act Partial Throm Time (Ptt) (05/08/16 09:47) Troponin I (05/08/16 09:47) Lactic Acid Sepsis Protocol (05/08/16 09:47) Urinalysis - C+S If Indicated (05/08/16 09:47) Blood Culture (05/08/16 09:47) Chest, Single Ap (05/08/16 09:47) Ct Brain W/O Iv Contrast(Rout) (05/08/16 09:47) Blood Glucose (05/08/16 09:47) Ecg Monitoring (05/08/16 09:47) Iv Access Insert/Monitor (05/08/16 09:47) Oximetry (05/08/16 09:47) Sodium Chloride 0.9% Flush (Ns Flush) (05/08/16 10:00) Ct Abd/Pel W/O Iv Contrast (05/08/16 ) Cath For Specimen (05/08/16 09:47) C Diff Toxin Pcr (05/08/16 09:47) Lidocaine 1% Inj (50 Ml) (Xylocaine 1% I (05/08/16 10:00) Peritoneal Cell Count + Diff (05/08/16 10:00) Total Protein Peritoneal Fluid (05/08/16 10:00) Albumin, Peritoneal Fluid (05/08/16 10:00) Glucose, Peritoneal Fluid (05/08/16 10:00) Ldh, Peritoneal Fluid (05/08/16 10:00) Amylase, Peritoneal Fluid (05/08/16 10:00) Fluid Culture And Gram Stain (05/08/16 10:00) Cytology Request For Service (05/08/16 10:00) Ldh Serum (05/08/16 10:00) Cefepime Inj (Maxipime Inj) (05/08/16 11:30) Vancomycin Inj (Vancomycin Inj) (05/08/16 12:15) Sodium Chlor 0.9% 1000 Ml Inj (Ns 1000 M (05/08/16 12:30) Sodium Chlor 0.9% 1000 Ml Inj (Ns 1000 M (05/08/16 12:30) Admit Order (Ed Use Only) (05/08/16 ) Urine Culture (05/08/16 11:15) Labs Laboratory Tests Test 05/08/16 05/08/16 05/08/16 05/08/16 10:00 11:15 11:20 12:00 White Blood Count 8.7 TH/MM3 Red Blood Count 3.13 MIL/MM3 Hemoglobin 8.8 GM/DL Hematocrit 26.7 % Mean Corpuscular Volume 85.3 FL Mean Corpuscular Hemoglobin 28.0 PG Mean Corpuscular Hemoglobin 32.9 % Concent Red Cell Distribution Width 21.0 % Platelet Count 97 TH/MM3 Mean Platelet Volume 8.5 FL Neutrophils (%) (Auto) 91.3 % Lymphocytes (%) (Auto) 3.3 % Monocytes (%) (Auto) 5.1 % Eosinophils (%) (Auto) 0.1 % Basophils (%) (Auto) 0.2 % Neutrophils # (Auto) 8.0 TH/MM3 Lymphocytes # (Auto) 0.3 TH/MM3 Monocytes # (Auto) 0.4 TH/MM3 Eosinophils # (Auto) 0.0 TH/MM3 Basophils # (Auto) 0.0 TH/MM3 CBC Comment AUTO DIFF Differential Comment AUTO DIFF CONFIRMED Platelet Estimate LOW Platelet Morphology Comment NORMAL Prothrombin Time 17.7 SEC Prothromb Time International 1.6 RATIO Ratio Activated Partial 31.8 SEC Thromboplast Time Sodium Level 138 MEQ/L Potassium Level 5.0 MEQ/L Chloride Level 107 MEQ/L Carbon Dioxide Level 17.3 MEQ/L Anion Gap 14 MEQ/L Blood Urea Nitrogen 61 MG/DL Creatinine 2.11 MG/DL Estimat Glomerular Filtration 31 ML/MIN Rate Random Glucose 168 MG/DL Lactic Acid Level 4.2 mmol/L 2.6 mmol/L Calcium Level 8.4 MG/DL Total Bilirubin 3.3 MG/DL Aspartate Amino Transf 48 U/L (AST/SGOT) Alanine Aminotransferase 31 U/L (ALT/SGPT) Alkaline Phosphatase 107 U/L Ammonia 39 MCMOL/L Lactate Dehydrogenase 269 U/L Troponin I LESS THAN 0.02 NG/ML Total Protein 6.6 GM/DL Albumin 2.3 GM/DL Urine Color YELLOW Urine Turbidity HAZY Urine pH 5.0 Urine Specific [place] 1.016 Urine Protein 30 mg/dL Urine Glucose (UA) NEG mg/dL Urine Ketones NEG mg/dL Urine Occult Blood SMALL Urine Nitrite NEG Urine Bilirubin NEG Urine Urobilinogen 2.0 MG/DL Urine Leukocyte Esterase LARGE Urine RBC 2 /hpf Urine WBC /hpf Urine WBC Clumps FEW Urine Bacteria MANY /hpf Microscopic Urinalysis Comment CULTURE INDICATED Peritoneal Fluid Total Protein 0.9 GM/DL Peritoneal Fluid Albumin 0.4 G/DL Peritoneal Fluid LDH 34 U/L Peritoneal Fluid Glucose 185 MG/DL Peritoneal Fluid Amylase 9 U/L MDM Medical Decision Making Medical Screen Exam Complete: Yes Emergency Medical Condition: Yes Interpretation(s) Chest x-ray: Normal. Head CT: Negative. CT abdomen and pelvis: Large amount of ascites with obvious cirrhosis and splenomegaly. Questionable portal vein thrombosis. LABS: CBC remarkable for hemoglobin 8.8, platelet count of 97 Coags remarkable for an INR 1.6 CMP CO2 17.3, BUN/creatinine 61 6/2.11, total bili 3.3 Ammonia 39 Troponin 0.2 Lactate 4.2 INR 1.6 Differential Diagnosis SBP, GI bleed, hepatic encephalopathy, other Narrative Course Medical decision making INITIAL: This 75-year-old male presents to the emergency department for altered mental status with a history of new diagnosis of cirrhosis, recent GI bleeding kidney injury, as well as abdominal tenderness. Concern for recurrent GI bleed , hepatic several optic, SBP, sepsis, other. We'll check labs. We'll check imaging of the head and belly. Consider diagnostic paracentesis. I spoke with the son, updated regarding his status and obtain consent for diagnostic paracentesis if needed. Reassess. FINAL: Initial workups unremarkable. Paracentesis fluid is pending. Concern for hepatic encephalopathy or infection, possible SBP. Given empiric antibiotic coverage. We will plan on admission. Procedures Procedure Narrative Paracentesis: Informed consent was obtained from the son. Ultrasound was utilized to identify 's pocket of fluid in the left lower abdomen. Area was prepped with Betadine. It was anesthetized 1% plain lidocaine. 22-gauge spinal needle was used to obtain 15 mL also clear yellow fluid. Patient tolerated well. No evidence of bleeding leak or other complication. Diagnosis Primary Impression: Altered mental status Qualified Code: R41.0 - Delirium Additional Impression: Sepsis Qualified Code: A41.51 - Sepsis due to Escherichia coli Itz Thomson MD May 08, 2016 10:05
--- NOTE | 2016-05-08 10:24 | RADRPT ---
EXAM DATE/TIME: 05/08/2016 09:45 [facility] COMPARISON: CHEST SINGLE AP, May 02, 2016, 12:12. INDICATIONS : Patient had a syncopal episode today. MEDICAL HISTORY : Hypercholesterolemia. Hypertension. Arthritis. Melena. Diabetes. SURGICAL HISTORY : Right leg surgery. ENCOUNTER: Initial ACUITY: 1 day PAIN SCORE: 0/10 LOCATION: chest FINDINGS: A single view of the chest demonstrates the lungs to be symmetrically aerated without evidence of mas s, infiltrate or effusion. The cardiomediastinal contours are unremarkable. Osseous structures are intact. CONCLUSION: Normal examination. Itz Barrera MD on May 08, 2016 at 10:22 Board Certified Radiologist. This report was verified electronically.
--- NOTE | 2016-05-08 10:29 | RADRPT ---
EXAM DATE/TIME: 05/08/2016 10:14 [facility] COMPARISON: CT BRAIN W/O CONTRAST, May 02, 2016, 12:10. INDICATIONS : Altered mental status. RADIATION DOSE: 44.77 CTDIvol (mGy) MEDICAL HISTORY : Cardiovascular disease. Hypertension. Diabetes. SURGICAL HISTORY : None. ENCOUNTER: Initial ACUITY: 1 day PAIN SCALE: 0/10 LOCATION: cranial TECHNIQUE: Multiple contiguous axial images were obtained of the head. Using automated exposure control and adj ustment of the mA and/or kV according to patient size, radiation dose was kept as low as reasonably a chievable to obtain optimal diagnostic quality images. FINDINGS: CEREBRUM: The ventricles are normal for age. No evidence of midline shift, mass lesion, hemorrhage or acute in farction. No extra-axial fluid collections are seen. POSTERIOR FOSSA: The cerebellum and brainstem are intact. The 4th ventricle is midline. The cerebellopontine angle i s unremarkable. EXTRACRANIAL: The visualized portion of the orbits is intact. Soft tissue swelling in the left suboccipital region within the subcutaneous fat is unchanged SKULL: The calvaria is intact. No evidence of skull fracture. CONCLUSION: Normal examination. Itz Barrera MD on May 08, 2016 at 10:26 Board Certified Radiologist. This report was verified electronically.
[2016-05-08 10:39] LABS: BASOPHIL % 0.2 % (0.0-2.0); EOSINOPHIL % 0.1 % (0.0-4.0); HEMATOCRIT 26.7 % (39.0-51.0); LYMPH % 3.3 % (9.0-44.0); LYMPHOCYTE # 0.3 TH/MM3 (1.0-4.8); MEAN CELL VOLUME 85.3 FL (80.0-100.0); MEAN CORPUSCULAR HGB CONC 32.9 % (32.0-36.0); MONO % 5.1 % (0.0-8.0); NEUT % 91.3 % (16.0-70.0); PLATELET COUNT 97 TH/MM3 (150-450); RED BLOOD COUNT 3.13 MIL/MM3 (4.50-5.90); WHITE BLOOD COUNT 8.7 TH/MM3 (4.0-11.0)
[2016-05-08 10:41] LABS: HEMO FLAGS AUTO DIFF
[2016-05-08 10:45] LABS: APTT (PATIENT) 31.8 SEC (24.3-30.1); INTERNATIONAL NORMALIZED RATIO 1.6 RATIO; PROTHROMBIN TIME - PATIENT 17.7 SEC (9.8-11.6)
[2016-05-08 10:56] LABS: ALKALINE PHOSPHATASE 107 U/L (45-117); TOTAL BILIRUBIN ADULT 3.3 MG/DL (0.2-1.0)
--- NOTE | 2016-05-08 11:04 | RADRPT ---
EXAM DATE/TIME: 05/08/2016 10:17 [facility] COMPARISON: No previous studies available for comparison. INDICATIONS: Distention. ORAL CONTRAST: No oral contrast ingested. RADIATION DOSE: 20.88 CTDIvol (mGy) MEDICAL HISTORY: Hypertension. Diabetes. SURGICAL HISTORY: None. ENCOUNTER: Initial ACUITY: 1 day PAIN SCALE: 0/10 LOCATION: Abdomen. TECHNIQUE: Volumetric scanning of the abdomen and pelvis was performed. Using automated exposure control and ad justment of the mA and/or kV according to patient size, radiation dose was kept as low as reasonably achievable to obtain optimal diagnostic quality images. FINDINGS: CT scan of abdomen and pelvis performed without contrast. The liver has an abnormal shape in contour . The left lobe of the liver is slightly hypertrophied suggesting cirrhosis. I do not see any focal masses on this unenhanced study. The spleen is prominent in size measuring 16.2 cm in height. There is some mild fatty atrophy of the pancreas. No focal pancreatic mass is identified. Gallbladder is well distended. The left adrenal gland has a 1.5 cm nodule, that nodule is new from the 2013 exam. There is a large amount of ascites throughout the abdomen. The bowel is non-dilated. There is a div erticula from the anterior aspect of the bladder. There is some wall thickening of the anterior blad alissa which is new from the 2013 exam. Lung bases are clear. Marked degenerative facet disease in the lower lumbar spine. No acute fractur e. CONCLUSION: Large amount of ascites in a patient with obvious cirrhosis and splenomegaly. On some of the axial i mages there is some lower density within the portal vein but without IV contrast I cannot supreme court judge its p atency. Small nodule left adrenal gland new since 2013. Could be an early spleen or renal shunt. Large amount of ascites without significant bowel wall thickening. Some thickening of the anterior bladder wall. Itz Barrera MD on May 08, 2016 at 10:44 Board Certified Radiologist. This report was verified electronically.
[2016-05-08 11:07] LABS: ALT (GPT) 31 U/L (12-78); ANION GAP 14 MEQ/L (5-15); AST (GOT) 48 U/L (15-37); BICARBONATE 17.3 MEQ/L (21.0-32.0); BLOOD UREA NITROGEN 61 MG/DL (7-18); CHLORIDE 107 MEQ/L (98-107); GLOMERULAR FILTRATION RATE 31 ML/MIN (>89); SODIUM (NA) 138 MEQ/L (136-145)
[2016-05-08 11:18] LABS: PLATELET ESTIMATE SMEAR LOW (NORMAL); PLATELET MORPHOLOGY NORMAL (NORMAL); SCAN/DIFF AUTO DIFF CONFIRMED
[2016-05-08] MEDS ORDERED: CEFEPIME INJ 2,000 MG in SODIUM CHLORIDE 0.9% INJ 100 ML IV ONE (11:30)
[2016-05-08] MEDS ORDERED: VANCOMYCIN INJ 1,000 MG in SODIUM CHLOR 0.9% 250 ML INJ 250 ML IV ONE (11:30)
[2016-05-08] MEDS ORDERED: VANCOMYCIN 1,000 MG/NS 250 ML IV ONE ×2 (12:15)
[2016-05-08 12:24] LABS: BACTERIA, URINE MANY /hpf; BLOOD, URINE SMALL (NEG); COMMENT (UR) CULTURE INDICATED; CULTURE IF INDICATED CULTURE INDICATED; GLUCOSE,URINE NEG (NEG); KETONE, URINE NEG (NEG); NITRITE,URINE NEG (NEG); URINE COLOR YELLOW (YELLW/STRAW)
[2016-05-08 12:24] LABS: LACTIC ACID GHOST NOT REPORTABLE
[2016-05-08] MEDS ORDERED: ACETAMINOPHEN 325 MG TAB PO PRN (12:30)
[2016-05-08] MEDS ORDERED: GLUCAGON 1 MG/ML VIAL OTHER PRN (12:30)
[2016-05-08] MEDS ORDERED: SODIUM CHLOR 0.9% 1000 ML INJ 1,000 ML IV ONE ×2 (12:30)
[2016-05-08] MEDS ORDERED: ONDANSETRON HCL 4 MG/2 ML VIAL IVP PRN (12:30)
[2016-05-08] MEDS ORDERED: SODIUM CHLORIDE 0.9% FLUSH 5 ML FLUSH FLUSH PRN (12:30)
[2016-05-08] MEDS ORDERED: DEXTROSE 50% IN WATER 50 ML VIAL(D50) IV PUSH PRN (12:30)
[2016-05-08] MEDS ORDERED: NALOXONE HCL 0.4 MG/ML AMP IV PRN (12:30)
[2016-05-08 13:28] LABS: PERITONEAL HISTIOCYTES 19 %; PERITONEAL LYMPHS 20 %; PERITONEAL MESOTHELIAL 14 %; PERITONEAL MONOS 16 %; PERITONEAL POLYS(SEGS) 31 %; PERITONEAL WBC 136 /MM3 (0-10)
--- NOTE | 2016-05-08 14:35 | HHI.HP ---
HPI Service [facility] Hospitalists Primary Care Physician Unknown Admission Diagnosis altered mental status, sepsis, SBP Diagnoses: (1) Toxic metabolic encephalopathy (2) SBP (spontaneous bacterial peritonitis) Chief Complaint: Altered mental status change Travel History International Travel<30 Days: No Contact w/Intl Traveler <30 Da: No Traveled to Known Affected Are: No History of Present Illness 75 year-old female with a history of diabetes type 2, recent GI bleed was admitted last week at [facility] secondary to GI bleed and symptomatic anemia was found on EGD to have grade 3 esophageal varices over at a time no banding done secondary to low platelets, high INR and anemia. Patient was however transfused 2 units during that hospitalization and was discharged in stable condition a local [facility] facility 05/05/16 was brought today to the ED for evaluation of altered mental status change. Per patient's son's account he started declining 2 days after discharge and his condition worsened today as patient was confused and complain of abdominal pain however there was no report of GI bleed or febrile episode. During my exam, patient is arousable and he is alert and oriented to self and date of . Although fecal occult blood was positive his H&H remained stable. Review of Systems Other 12 systems reviewed and are negative except for the one mentioned in history of present illness Past Family Social History Past Medical History Hypertension Hyperlipidemia Diabetes mellitus Past Surgical History Right leg surgery for tib-fib fracture Reported Medications Pantoprazole (Pantoprazole Sodium) 40 Mg Tab 40 Mg PO Q12HR Lopressor (Metoprolol Tartrate) 50 Mg Tab 50 Mg PO Q12HR Reported Sertraline (Sertraline HCl) 50 Mg Tab 50 Mg PO DAILY Fenofibrate 160 Mg Tab 160 Mg PO DAILY Ferrous Sulfate 325 Mg Tab 325 Mg PO TID Metformin (Metformin HCl) 500 Mg Tab 500 Mg PO DAILY With a meal Allergies: Coded Allergies: No Known Allergies (Unverified , 05/04/16) Family History significant for cancer Social History Patient continues to smoke at least 2 cigars daily. Patient has been smoking since he was 19 years old. Patient denies any alcohol or illicit drugs Physical Exam Vital Signs Vital Signs Date Time Temp Pulse Resp B/P Pulse Ox O2 Delivery O2 Flow Rate FiO2 05/08/16 14:02 87 16 127/60 98 Room Air 05/08/16 13:05 90 18 124/58 100 Room Air 05/08/16 12:03 85 18 136/88 100 Room Air 05/08/16 09:59 20 100 Room Air 05/08/16 09:47 92 20 100 Room Air 05/08/16 09:43 99.0 92 18 136/63 100 Physical Exam GENERAL: This is a well-nourished, well-developed patient, in no apparent distress. SKIN: No rashes, ecchymoses or lesions. Cool and dry. HEAD: Atraumatic. Normocephalic. No temporal or scalp tenderness. EYES: Pupils equal round and reactive. Extraocular motions intact. No scleral icterus. No injection or drainage. ENT: Nose without bleeding, purulent drainage or septal hematoma. Throat without erythema, tonsillar hypertrophy or exudate. Uvula midline. Airway patent. NECK: Trachea midline. No JVD or lymphadenopathy. Supple, nontender, no meningeal signs. CARDIOVASCULAR: Regular rate and rhythm without murmurs, gallops, or rubs. RESPIRATORY: Clear to auscultation. Breath sounds equal bilaterally. No wheezes , rales, or rhonchi. GASTROINTESTINAL: Abdomen soft, non-tender, nondistended. No hepato-splenomegaly , or palpable masses. No guarding. MUSCULOSKELETAL: Extremities without clubbing, cyanosis, or edema. No joint tenderness, effusion, or edema noted. No calf tenderness. Negative Homans sign bilaterally. NEUROLOGICAL: Awake and alert. Cranial nerves II through XII intact. Motor and sensory grossly within normal limits. Five out of 5 muscle strength in all muscle groups. Normal speech. Laboratory Laboratory Tests Test 05/08/16 05/08/16 05/08/16 05/08/16 10:00 11:15 11:20 12:00 White Blood Count 8.7 Red Blood Count 3.13 Hemoglobin 8.8 Hematocrit 26.7 Mean Corpuscular Volume 85.3 Mean Corpuscular Hemoglobin 28.0 Mean Corpuscular Hemoglobin 32.9 Concent Red Cell Distribution Width 21.0 Platelet Count 97 Mean Platelet Volume 8.5 Neutrophils (%) (Auto) 91.3 Lymphocytes (%) (Auto) 3.3 Monocytes (%) (Auto) 5.1 Eosinophils (%) (Auto) 0.1 Basophils (%) (Auto) 0.2 Neutrophils # (Auto) 8.0 Lymphocytes # (Auto) 0.3 Monocytes # (Auto) 0.4 Eosinophils # (Auto) 0.0 Basophils # (Auto) 0.0 CBC Comment AUTO DIFF Differential Comment AUTO DIFF CONFIRMED Platelet Estimate LOW Platelet Morphology Comment NORMAL Prothrombin Time 17.7 Prothromb Time International 1.6 Ratio Activated Partial 31.8 Thromboplast Time Sodium Level 138 Potassium Level 5.0 Chloride Level 107 Carbon Dioxide Level 17.3 Anion Gap 14 Blood Urea Nitrogen 61 Creatinine 2.11 Estimat Glomerular Filtration 31 Rate Random Glucose 168 Lactic Acid Level 4.2 2.6 Calcium Level 8.4 Total Bilirubin 3.3 Aspartate Amino Transf 48 (AST/SGOT) Alanine Aminotransferase 31 (ALT/SGPT) Alkaline Phosphatase 107 Ammonia 39 Lactate Dehydrogenase 269 Troponin I LESS THAN 0.02 Total Protein 6.6 Albumin 2.3 Urine Color YELLOW Urine Turbidity HAZY Urine pH 5.0 Urine Specific [place] 1.016 Urine Protein 30 Urine Glucose (UA) NEG Urine Ketones NEG Urine Occult Blood SMALL Urine Nitrite NEG Urine Bilirubin NEG Urine Urobilinogen 2.0 Urine Leukocyte Esterase LARGE Urine RBC 2 Urine WBC Urine WBC Clumps FEW Urine Bacteria MANY Microscopic Urinalysis Comment CULTURE INDICATED Peritoneal Fluid WBC 136 Peritoneal Fluid RBC 756 Peritoneal Fluid Neutrophils 31 Peritoneal Fluid Lymphocytes 20 Peritoneal Fluid Monocytes 16 Peritoneal Fluid Mesothelial 14 Cells Peritoneal Fluid Histiocytes 19 Peritoneal Fluid Total Protein 0.9 Peritoneal Fluid Albumin 0.4 Peritoneal Fluid LDH 34 Peritoneal Fluid Glucose 185 Peritoneal Fluid Amylase 9 Date/Time Procedure Status Source Growth 05/08/16 11:28 Aerobic Blood Culture Received Blood Peripheral Pending 05/08/16 11:28 Anaerobic Blood Culture Received Blood Peripheral Pending 05/08/16 11:15 Urine Culture Received Urine Catheterized Urine Pending 05/08/16 10:00 Gram Stain Received Fluid Peritoneal Fluid Pending 05/08/16 10:00 Body Fluid Culture Received Fluid Peritoneal Fluid Pending Result Diagram: 05/08/16 1000 05/08/16 1000 Assessment and Plan Problem List: (1) Toxic metabolic encephalopathy ICD Code: G92 Status: Acute (2) SBP (spontaneous bacterial peritonitis) ICD Code: K65.2 Status: Acute (3) UTI (urinary tract infection) ICD Code: N39.0 Status: Acute Assessment and Plan 75-year-old male with 1-Toxic metabolic versus hepatic encephalopathy: Likely secondary to SBP vs UTI. Will keep patient nothing by mouth pending swallow eval 2-SBP: Status post paracentesis with fluid culture pending. Status post cefepime IV in ED, continue with cefepime 2 g every 8 hour 3-UTI: Currently on Cefepime pending Urine culture 4-Hyperammonemia: Ammonia slightly elevated, starts lactulose 30 mg daily and monitor NH 3 5-Recent history of GI bleed: H&H currently stable, Protonix IV and consider consultation to gastroenterology for evaluation of for possible banding of esophageal varices 6-Chronic kidney disease stage III: Renal indices stable, and avoid all nephrotoxic drugs 7-Hypertension: Resume outpatient medication 8-Diabetes type 2: Hold oral hypoglycemic agent, medium sliding scale insulin. 9-DVT prophylaxis: Bilateral SCDs Code Status Full code Discussed Condition With Patient's son, ED physician Physician Certification 2 Midnight Certification Type: Admission for Inpatient Services Order for Inpatient Services The services are ordered in accordance with Medicare regulations or non- Medicare payer requirements, as applicable. In the case of services not specified as inpatient-only, they are appropriately provided as inpatient services in accordance with the 2-midnight benchmark. Estimated LOS (days): 2 days is the estimated time the patient will need to remain in the hospital, assuming treatment plan goals are met and no additional complications. Post-Hospital Plan: Not yet determined Bob Mitchell MD May 08, 2016 14:34
[2016-05-08] MEDS: INSULIN ASPART SUPPLEMENTAL SCALE SQ SCH ×2 (15:49→21:35)
[2016-05-08] MEDS: SODIUM CHLOR 0.9% 1000 ML INJ 1,000 ML IV SCH ×2 (15:50→18:36)
[2016-05-08] MEDS ORDERED: METOPROLOL TARTRATE 50 MG TAB PO SCH (21:00)
[2016-05-08] MEDS: SODIUM CHLORIDE 0.9% FLUSH 5 ML FLUSH FLUSH SCH (21:35)
[2016-05-08] MEDS: CEFEPIME INJ 2,000 MG in SODIUM CHLORIDE 0.9% INJ 100 ML IV SCH (21:40)
[2016-05-09] VITALS (8 sets, daily range): BP systolic 132–160; BP diastolic 60–71; PULSE 77–91; RESP 16–20; TEMP 94.2–99.1; O2SAT 98–100
[2016-05-09] MEDS: CEFEPIME INJ 2,000 MG in SODIUM CHLORIDE 0.9% INJ 100 ML IV SCH ×3 (04:21→22:11)
[2016-05-09] MEDS: INSULIN ASPART SUPPLEMENTAL SCALE SQ SCH ×4 (04:48→21:00)
[2016-05-09 07:27] LABS: HEMATOCRIT 24.2 % (39.0-51.0); MEAN CELL VOLUME 85.9 FL (80.0-100.0); MEAN CORPUSCULAR HEMOGLOBIN 27.3 PG (27.0-34.0); MEAN CORPUSCULAR HGB CONC 31.7 % (32.0-36.0); PLATELET COUNT 45 TH/MM3 (150-450); RED BLOOD COUNT 2.82 MIL/MM3 (4.50-5.90); RED CELL DISTRIBUTION WIDTH 21.4 % (11.6-17.2); WHITE BLOOD COUNT 2.9 TH/MM3 (4.0-11.0)
[2016-05-09 07:30] LABS: HEMO FLAGS AUTO DIFF
[2016-05-09 07:53] LABS: ALKALINE PHOSPHATASE 85 U/L (45-117); ALT (GPT) 27 U/L (12-78); ANION GAP 13 MEQ/L (5-15); AST (GOT) 40 U/L (15-37); BICARBONATE 15.9 MEQ/L (21.0-32.0); BLOOD UREA NITROGEN 58 MG/DL (7-18); CHLORIDE 114 MEQ/L (98-107); GLOMERULAR FILTRATION RATE 37 ML/MIN (>89); POTASSIUM 4.2 MEQ/L (3.5-5.1); SODIUM (NA) 143 MEQ/L (136-145); TOTAL BILIRUBIN ADULT 2.1 MG/DL (0.2-1.0)
[2016-05-09] MEDS ORDERED: LACTULOSE SYRUP 20 GM/30 ML CUP PO SCH (09:00)
[2016-05-09] MEDS: SODIUM CHLORIDE 0.9% FLUSH 5 ML FLUSH FLUSH SCH ×2 (09:00→22:07)
[2016-05-09] MEDS: LACTOBACILLUS ACIDOPHILUS TAB PO SCH ×2 (09:00→21:00)
[2016-05-09 09:04] LABS: BANDS 25 % (0-6); CORRECTED NUCLEATED RBC 1 /100 WBC (0-0); NEUTROPHIL # MANUAL DIFF 2.8 TH/MM3 (1.8-7.7); PLATELET ESTIMATE SMEAR LOW (NORMAL); PLATELET MORPHOLOGY NORMAL (NORMAL); POLYS (SEG NEUTROPHILS) 72 % (16-70); WBC DIFF SAMPLE 100
[2016-05-09 09:05] LABS: ACANTHOCYTES OCC (NORMAL); HELMET CELLS OCC (NORMAL); OVALOCYTES 1+ (NORMAL)
[2016-05-09 09:06] LABS: SCAN/DIFF FINAL DIFF MANUAL
--- NOTE | 2016-05-09 09:43 | HHI.PR ---
Subjective Remarks Follow-up toxic metabolic encephalopathy/UTI/questionable SBP 05/09/16-patient seen and examined, alert and oriented to self, date of however somewhat lethargic. Currently afebrile, however for blood culture positive. No GI bleed Objective Vitals Vital Signs Date Time Temp Pulse Resp B/P Pulse Ox O2 Delivery O2 Flow Rate FiO2 05/09/16 04:00 98.1 77 18 139/66 98 05/09/16 00:00 98.1 81 18 132/60 100 05/08/16 20:00 88 05/08/16 20:00 98.3 90 18 129/58 100 05/08/16 18:00 98.6 95 20 146/63 100 05/08/16 16:00 91 14 138/64 98 Room Air 05/08/16 15:00 90 14 142/65 96 Room Air 05/08/16 14:02 87 16 127/60 98 Room Air 05/08/16 13:05 90 18 124/58 100 Room Air 05/08/16 12:03 85 18 136/88 100 Room Air 05/08/16 09:59 20 100 Room Air 05/08/16 09:47 92 20 100 Room Air 05/08/16 09:43 99.0 92 18 136/63 100 I/O 05/08/16 05/08/16 05/08/16 05/09/16 05/09/16 05/09/16 07:00 15:00 23:00 07:00 15:00 23:00 Intake Total 0 ml 0 ml Output Total 400 ml 325 ml 250 ml Balance -400 ml -325 ml -250 ml Intake Oral 0 ml 0 ml Output Urine Total 400 ml 325 ml 250 ml # Voids 0 # Bowel Movements 1 1 Result Diagram: 05/09/16 0710 05/09/16 0710 Imaging Last Impressions Head CT 05/08/16 0947 Signed Impressions: Service Date/Time: Sunday, May 08, 2016 10:14 - CONCLUSION: Normal examination. Itz Barrera MD Chest X-Ray 05/08/16 0947 Signed Impressions: Service Date/Time: Sunday, May 08, 2016 09:45 - CONCLUSION: Normal examination. Itz Barrera MD Abdomen/Pelvis CT 05/08/16 0000 Signed Impressions: Service Date/Time: Sunday, May 08, 2016 10:17 - CONCLUSION: Large amount of ascites in a patient with obvious cirrhosis and splenomegaly. On some of the axial images there is some lower density within the portal vein but without IV contrast I cannot patrol judge its patency. Small nodule left adrenal gland new since 2012. Could be an early spleen or renal shunt. Large amount of ascites without significant bowel wall thickening. Some thickening of the anterior bladder wall. Itz Barrera MD Objective Remarks GENERAL: NAD however lethargic SKIN: Warm and dry. HEAD: Normocephalic. EYES: No scleral icterus. No injection or drainage. NECK: Supple, trachea midline. No JVD or lymphadenopathy. CARDIOVASCULAR: Regular rate and rhythm without murmurs, gallops, or rubs. RESPIRATORY: Breath sounds equal bilaterally. No accessory muscle use. GASTROINTESTINAL: Abdomen soft, non-tender, nondistended. MUSCULOSKELETAL: No cyanosis, or edema. BACK: Nontender without obvious deformity. No CVA tenderness. A/P Problem List: (1) Toxic metabolic encephalopathy ICD Code: G92 Status: Acute (2) SBP (spontaneous bacterial peritonitis) ICD Code: K65.2 Status: Acute (3) UTI (urinary tract infection) ICD Code: N39.0 Status: Acute Assessment and Plan 75-year-old male with 1-Toxic metabolic versus hepatic encephalopathy: Likely secondary to SBP vs UTI. Failed swallow eval 2-SBP: Status post paracentesis with fluid culture pending. Status post cefepime IV in ED, continue with cefepime 2 g every 8 hour pending culture reports along with cytology 3-UTI: Currently on Cefepime pending Urine culture 4-Hyperammonemia: Now resolved, will discontinue lactulose 5-Recent history of GI bleed: H&H currently stable, Protonix IV and consider consultation to gastroenterology for evaluation of for possible banding of esophageal varices when stable 6-Chronic kidney disease stage III: Renal indices stable, and avoid all nephrotoxic drugs 7-Hypertension: continue outpatient medication 8-Diabetes type 2: Hold oral hypoglycemic agent, medium sliding scale insulin. 9-DVT prophylaxis: Bilateral SCDs 10-Pancytopenia: Appear to be secondary to current infection vs DIC, will consult hematology. Check liver ultrasound and coags 11-Bacteremia: 4 blood culture positive, start vancomycin IV, continue cefepime and consult infectious disease specialist. Bob Mitchell MD May 09, 2016 09:43
[2016-05-09] MEDS ORDERED: Vancomycin Consult Pharmacy 1 EA OTHER SCH (10:00)
[2016-05-09] MEDS: PANTOPRAZOLE SODIUM 40 MG VIAL IV PUSH SCH (10:07)
[2016-05-09] MEDS ORDERED: VANCOMYCIN INJ 1,500 MG in SODIUM CHLORID 0.9% 500 ML INJ 500 ML IV ONE (12:00)
[2016-05-09] MEDS ORDERED: VANCOMYCIN INJ 1,250 MG in SODIUM CHLOR 0.9% 250 ML INJ 250 ML IV SCH (12:00)
[2016-05-09] MEDS: SODIUM CHLOR 0.9% 1000 ML INJ 1,000 ML IV SCH (14:35)
--- NOTE | 2016-05-09 16:25 | PD.ID.CON ---
History of Present Illness Service Infectious disease Consult Requested By Reason for Consult Evaluation and management of possible sepsis, gram-negative bacteremia. Primary Care Physician Unknown Diagnoses: History of Present Illness Mr. Owen is a 75-year-old male with past medical history significant for type 2 diabetes, recent GI bleed was admitted to [facility] secondary to GI bleed and symptomatic anemia. Patient was evaluated by GI at that time and underwent an EGD which showed grade 3 esophageal varices. No banding was done during that admission due to low platelets per review of medical records. Patient was having were transfused 2 units during that hospitalization and was discharged in stable condition to a local nursing facility and every 2016. She was brought into the emergency department for evaluation of his altered mental status. Per patient's son he started declining 2 days after discharge and his condition worsened to the present point where he is now confused complaining of abdominal pain. No reported GI bleeding per medical records but at the time of my evaluation patient was having black tarry stools. During my examination patient was lethargic and difficult to arouse and did not follow commands for me. CT head was done which was normal. A chest x-ray was normal. An abdominal pelvis CT was done which showed large amount of ascites and patient underwent paracentesis earlier today. Patient has progressively become more leukopenic with thrombocytopenia low H&H and hematology has been consulted. Review of Systems ROS Limitations: Altered Mental Status Past Family Social History Allergies: Coded Allergies: No Known Allergies (Unverified , 05/04/16) Past Medical History Hypertension Hyperlipidemia Diabetes mellitus Past Surgical History Right leg surgery for tib-fib fracture Reported Medications Reported Meds & Active Scripts Active Pantoprazole (Pantoprazole Sodium) 40 Mg Tab 40 Mg PO Q12HR Lopressor (Metoprolol Tartrate) 50 Mg Tab 50 Mg PO Q12HR Reported Sertraline (Sertraline HCl) 50 Mg Tab 50 Mg PO DAILY Fenofibrate 160 Mg Tab 160 Mg PO DAILY Ferrous Sulfate 325 Mg Tab 325 Mg PO TID Metformin (Metformin HCl) 500 Mg Tab 500 Mg PO DAILY With a meal Active Ordered Medications Current Medications Medications (Trade) Dose Ordered Sig/Melania Route Start Time Stop Time Status Last Admin (NS Flush) 2 ml UNSCH PRN IVF 05/08/16 10:00 (NS Flush) 2 ml UNSCH PRN FLUSH 05/08/16 12:30 (NS Flush) 2 ml BID FLUSH 05/08/16 21:00 05/09/16 09:00 (Tylenol) 650 mg Q4H PRN PO 05/08/16 12:30 (Zofran Inj) 4 mg Q6H PRN IVP 05/08/16 12:30 (Tylenol) 650 mg Q6H PRN PO 05/08/16 12:30 (Narcan Inj) 0.4 mg UNSCH PRN IV 05/08/16 12:30 (D50w (Vial) Inj) 25 ml UNSCH PRN IV PUSH 05/08/16 12:30 Glucagon 1 mg 1 mg UNSCH PRN OTHER 05/08/16 12:30 (Maxipime Inj/NS Inj) 100 ml @ 200 mls/hr Q8H IV 05/08/16 21:00 05/09/16 15:52 Lactobacillus Acidophilus 1 tab 1 tab Q12HR PO 05/08/16 21:00 (NS 1000 ml Inj) 1,000 ml @ 84 mls/hr [id number] IV 05/08/16 14:45 05/09/16 14:35 (Lopressor) 50 mg Q12HR PO 05/08/16 21:00 Hold (Protonix Inj) 40 mg Q24H IV PUSH 05/09/16 09:00 05/09/16 10:07 (Lactulose Liq) 30 ml DAILY PO 05/09/16 09:00 Hold Family History Could not be obtained. Social History Patient continues to smoke at least 2 cigars daily. Patient has been smoking since he was 19 years old. Patient denies any alcohol or illicit drugs Physical Exam Vital Signs Vital Signs Date Time Temp Pulse Resp B/P Pulse Ox O2 Delivery O2 Flow Rate FiO2 05/09/16 11:29 99.1 91 20 160/70 99 05/09/16 08:00 94.2 86 20 150/67 99 05/09/16 04:00 98.1 77 18 139/66 98 05/09/16 00:00 98.1 81 18 132/60 100 05/08/16 20:00 88 05/08/16 20:00 98.3 90 18 129/58 100 05/08/16 18:00 98.6 95 20 146/63 100 Physical Exam GENERAL: Acutely ill, male patient, in no apparent distress. SKIN: No rashes, ecchymoses or lesions. Cool and dry. HEAD: Atraumatic. Normocephalic. No temporal or scalp tenderness. EYES: Pupils equal round and reactive. Extraocular motions intact. No scleral icterus. No injection or drainage. ENT: Grossly nothing abnormal detected. NECK: Trachea midline. Supple, nontender, no meningeal signs. CARDIOVASCULAR: Regular rate and rhythm without murmurs, gallops, or rubs. RESPIRATORY: Clear to auscultation. Breath sounds equal bilaterally. No wheezes , rales, or rhonchi. GASTROINTESTINAL: Abdomen distended, minimal tenderness. Signs of free fluid present. MUSCULOSKELETAL: Extremities without clubbing, cyanosis, or edema. NEUROLOGICAL: Lethargic. Moans. Did not open eyes or follow commands. Psych could not be assessed IV line sites with no evidence of infection. Laboratory Laboratory Tests Test 05/09/16 07:10 White Blood Count 2.9 Red Blood Count 2.82 Hemoglobin 7.7 Hematocrit 24.2 Mean Corpuscular Volume 85.9 Mean Corpuscular Hemoglobin 27.3 Mean Corpuscular Hemoglobin 31.7 Concent Red Cell Distribution Width 21.4 Platelet Count 45 Mean Platelet Volume 8.0 Neutrophils (%) (Auto) Lymphocytes (%) (Auto) Monocytes (%) (Auto) Eosinophils (%) (Auto) Basophils (%) (Auto) Neutrophils # (Auto) Lymphocytes # (Auto) Monocytes # (Auto) Eosinophils # (Auto) Basophils # (Auto) CBC Comment AUTO DIFF Differential Total Cells 100 Counted Neutrophils % (Manual) 72 Band Neutrophils % 25 Lymphocytes % 2 Monocytes % 1 Neutrophils # (Manual) 2.8 Nucleated Red Blood Cells 1 Differential Comment FINAL DIFF MANUAL Platelet Estimate LOW Platelet Morphology Comment NORMAL Ovalocytes 1+ Helmet Cells OCC Acanthocytes OCC Sodium Level 143 Potassium Level 4.2 Chloride Level 114 Carbon Dioxide Level 15.9 Anion Gap 13 Blood Urea Nitrogen 58 Creatinine 1.81 Estimat Glomerular Filtration 37 Rate Random Glucose 173 Calcium Level 7.7 Total Bilirubin 2.1 Aspartate Amino Transf 40 (AST/SGOT) Alanine Aminotransferase 27 (ALT/SGPT) Alkaline Phosphatase 85 Ammonia 12 Total Protein 5.7 Albumin 1.8 Date/Time Procedure Status Source Growth 05/09/16 12:56 Aerobic Blood Culture Received Blood Peripheral Pending 05/09/16 12:56 Anaerobic Blood Culture Received Blood Peripheral Pending 2/28/17 11:28 Aerobic Blood Culture - Preliminary Resulted Blood Peripheral Gram Negative [place] 05/08/16 11:28 Anaerobic Blood Culture - Preliminary Resulted Gram Negative [place] 05/08/16 11:20 Gram Stain - Final Resulted Fluid Peritoneal Fluid 05/08/16 11:20 Body Fluid Culture - Preliminary Resulted Fluid Peritoneal Fluid NO GROWTH IN 24 HOURS. 05/08/16 11:15 Urine Culture - Preliminary Resulted Urine Catheterized Urine Gram Negative [place] 05/08/16 10:00 Gram Stain Received Fluid Peritoneal Fluid Pending 05/08/16 10:00 Body Fluid Culture Received Fluid Peritoneal Fluid Pending Result Diagram: 05/09/16 0710 05/09/16 0710 Imaging Last Impressions Head CT 05/08/16 0947 Signed Impressions: Service Date/Time: Sunday, May 08, 2016 10:14 - CONCLUSION: Normal examination. Itz Barrera MD Chest X-Ray 05/08/16 0947 Signed Impressions: Service Date/Time: Sunday, May 08, 2016 09:45 - CONCLUSION: Normal examination. Itz Barrera MD Abdomen/Pelvis CT 05/08/16 0000 Signed Impressions: Service Date/Time: Sunday, May 08, 2016 10:17 - CONCLUSION: Large amount of ascites in a patient with obvious cirrhosis and splenomegaly. On some of the axial images there is some lower density within the portal vein but without IV contrast I cannot float builder its patency. Small nodule left adrenal gland new since 2012. Could be an early spleen or renal shunt. Large amount of ascites without significant bowel wall thickening. Some thickening of the anterior bladder wall. Itz Barrera MD Assessment and Plan Assessment and Plan Sepsis present on admission. Gram-negative bacteremia, possible Escherichia coli Gram-negative UTI possibly complicated, urinary bladder wall thickening Acute lower GI bleed with low H&H Low bicarbonate and elevated lactic acid on admission. Acute metabolic encephalopathy. Acute renal failure prerenal, sepsis Recommendations: Discontinue vancomycin could be causing the low platelets additionally patient has not grown any gram positives at this point Patient's sepsis is predominantly due to gram-negative organisms in the blood and urine. Continue cefepime IV (Escherichia coli based on Verigene testing, no resistance markers noted) Repeat lactic acid sepsis protocol Check CBC, BMP to follow up on H&H, platelets as well as bicarbonate 250 cc normal saline bolus Case discussed with Dr. Jin: Overall patient's clinical condition at the time of my evaluation was concerning for either worsening sepsis and or GI bleeding. Consult gastroenterology lower GI bleeding for possible colonoscopy. Discussed with RN Follow cultures next and follow clinically Time spent in excess of extremely minutes discontinuously in care coordination and discussion with blocking machine tender. Flora Saha MD May 09, 2016 16:24
[2016-05-09 19:02] LABS: C. DIFF EPI 027 PRESUMPTIVE NEGATIVE (NEGATIVE); C. DIFF TOXIN PCR NEGATIVE (NEGATIVE)
[2016-05-09] MEDS ORDERED: SODIUM CHLOR 0.9% 250 ML INJ 250 ML IV ONE (19:30)
--- NOTE | 2016-05-09 20:02 | MB ---
cc: NICOLE GARCIA M.D. DATE OF CONSULTATION 05/09/[address] Mitchell. REASON FOR CONSULTATION Hematology consulted to render opinion regarding the patient with pancytopenia. HISTORY OF PRESENT ILLNESS The patient is 75-year-old male admitted to the hospital with mental status change. He is rather weak and could not recall events. History was obtained from his son at the bedside. Apparently since the patient has become more reclusive. His son stated a neighbor usually goes to his house and visits and his door is always open. Since he has not been coming out much and often he locks his door. About a week ago he told his neighbor that he is not feeling well. A few days ago when the neighbor called him he was not answering the phone. They went to his house and found that he was on the ground, very lethargic and confused. He brought him to the hospital. A week ago he was admitted to the hospital with GI bleed. At that time he was found to have esophageal varices but banding was not done due to low platelet. He did receive 2 units of packed red blood cells before he was discharged. At this point he is very weak. He denies any pain. He has no abdominal pain. He denies any chest pressure. Denies shortness of breath. PAST MEDICAL HISTORY 1. Diabetes mellitus. 2. Recent GI bleed. 3. Grade 3 esophageal varices. 4. Hypertension. 5. Hyperlipidemia. 6. Cirrhosis. 7. Splenomegaly. PAST SURGICAL HISTORY 1. Right leg surgery. 2. Upper endoscopy. FAMILY HISTORY He has one son who is healthy. SOCIAL HISTORY He smoked about two cigarettes a day. He does not drink alcohol. He lives alone. His son lives in [place]. ALLERGIES No known drug allergy. MEDICATIONS 1. Protonix. 2. Cefepime. 3. Lactinex. REVIEW OF SYSTEMS CONSTITUTIONAL: He has increased weakness. EYES: Denies any blurred vision, double vision. EAR, NOSE, AND THROAT: Denies any mouth sores or voice changes. CARDIOVASCULAR: Denies any chest pressure, palpitations. RESPIRATORY: Denies any cough. GASTROINTESTINAL: As above. GENITOURINARY: Denies any dysuria, hematuria. MUSCULOSKELETAL: Was complaining of diffuse joint aches when physical therapy tried to get him up earlier today. HEMATOLOGIC: As above. ENDOCRINE: Negative. DERMATOLOGIC: Negative. PSYCHIATRIC: Negative. NEUROLOGICAL: Negative. PHYSICAL EXAMINATION VITAL SIGNS: Temperature 99.1, blood pressure 160/70. O2 saturation 99%. GENERAL: He is lethargic. Easily arousable. He will answer questions. HEENT: Atraumatic, normocephalic. Pupils equal, round and reactive to light. Extraocular muscles intact. No scleral icterus. Oropharynx dry mucosa, no lesion. NECK: No thyromegaly, no palpable mass. LYMPHATICS: No palpable cervical, clavicular, axillary or inguinal lymph nodes. CARDIOVASCULAR: Regular S1, S2. No murmur. LUNGS: Clear to auscultation anteriorly. ABDOMEN: Slightly distended. Soft. Difficult to palpate liver or spleen. Nontender. Positive bowel sounds. EXTREMITIES: He has 1+ bilateral lower extremity edema. No calf tenderness. SKIN: No rash or petechiae. NEUROLOGIC: He is lethargic. LABORATORY DATA Reviewed. ASSESSMENT 1. Pancytopenia, due to sepsis. He has baseline anemia and thrombocytopenia due to cirrhosis and splenomegaly. The further drop in blood count likely due to sepsis and possible DIC. His white blood cell count has trended down to 2.9 and there was bandemia noted. Platelet count trended down to 45,000 but no further GI bleeding noted. Hemoglobin had dropped down to 7.7 likely due to recent GI bleed. He had 2 units of packed red blood cells transfusion during his last admission a week ago. At this point I am going to check his iron study and vitamin study and will also check DIC panel. Continue to monitor CBC and can give him transfusion if his hemoglobin trends below 7. Will give him platelets transfusion if there is any sign of bleeding. 2. Sepsis. His blood culture grew gram-negative rods. Peripheral smear showed bandemia. He possibly could have a urinary tract infection versus SBP. He is currently on antibiotic per infectious disease. 3. Recent GI bleed due to esophageal varices. He has no gross GI bleeding at this time. Continue to monitor his hemoglobin. 4. Cirrhosis with splenomegaly. He also was noted to have grade 3 esophageal varices. 5. Hypertension. 6. Hyperlipidemia. 7. Diabetes mellitus. RECOMMENDATIONS 1. Proceed with anemia workup as above. 2. Anticipate his blood count to improve once infection is controlled but his blood count is not going to trend all the way back to normal due to cirrhosis and splenomegaly. 3. Check DIC panel. 4. Monitor CBC and consider transfusion if hemoglobin trends below 7 or if he is symptomatic. Thank you Dr. Mitchell for asking me to see this patient. MD RACHAEL Whitney/AMAURI /5:32 PM /7:21 PM LILLIE
--- NOTE | 2016-05-09 22:27 | HHI.PR ---
Addendum to Inpatient Note Addendum Reason: Additional Documentation Additional Information I was called by ID attending around 7:30 PM the patient that patient would need to be followed up overnight because he was having some GI bleed, looking somewhat more lethargic likely due to sepsis versus GI bleed. Stat labs were also ordered including lactic acid at that time and would like me to follow up. Therefore at that time, I had at around 8 PM, I had called the chemistry lab to make sure that labs were drawn. They have told me that video game technician was on his way to draw the labs. Also had written nursing order to page me with lab results. I then called the nurse around 9:30 PM to follow-up on the lab work. Apparently the video game technician was not able to draw the lab because of patient's poor skin condition and poor venous access. The chemistry lab had informed nurse after she calls them for follow-up that another video game technician is on his way in about 20 minutes. Therefore I came to see patient at the bedside. Patient is awake, alert, oriented. However is quite tired. Looks extremely pale. Skin is paper thin with superficial ecchymosis everywhere and tears everywhere. Heart rate is regular, no murmur appreciated. Decreased air entry bilaterally. Respiratory rate is around 18. Blood pressure was around 157/90 per nurse. Abdomen is distended, ascites present. However nontender. Bilateral lower extremity pitting edema 3+ up to his thighs. Patient himself denies any shortness of breath. Denies chest pains. Denies nausea/vomiting/diarrhea. Nurse at the bedside reported that patient did have small amounts of maroon color stool. It was not big large amount as an diarrhea or normal bowel movements. Vitals are stable. Therefore I have discontinued fluid bolus that was ordered since vitals are stable and patient has no active bleeding. Advised nurse to call me if patient has any diarrhea or melena. May consider starting fluids at that time. Have also told to follow up with the lab on that draws. If the lab is unable to do so the second time, we may consider drawing from arterial/radial site. However I am hesitant to do that since his platelets are also low. At present, patient is stable. Not in shocky state. No active bleed. Marichuy Jin MD May 09, 2016 22:27
[2016-05-09 22:59] LABS: HEMATOCRIT 25.5 % (39.0-51.0); MEAN CELL VOLUME 85.6 FL (80.0-100.0); MEAN CORPUSCULAR HEMOGLOBIN 27.6 PG (27.0-34.0); MEAN CORPUSCULAR HGB CONC 32.3 % (32.0-36.0); PLATELET COUNT 44 TH/MM3 (150-450); RED BLOOD COUNT 2.98 MIL/MM3 (4.50-5.90); RED CELL DISTRIBUTION WIDTH 21.6 % (11.6-17.2); WHITE BLOOD COUNT 2.6 TH/MM3 (4.0-11.0)
[2016-05-09 23:01] LABS: REVIEW FLAG FINAL
[2016-05-09 23:06] LABS: RETIC % 5.2 % (0.4-3.0)
[2016-05-09 23:10] LABS: REVIEW FLAG FINAL
[2016-05-09 23:19] LABS: APTT (PATIENT) 39.5 SEC (24.3-30.1); INTERNATIONAL NORMALIZED RATIO 1.4 RATIO; PROTHROMBIN TIME - PATIENT 15.6 SEC (9.8-11.6)
[2016-05-09 23:54] LABS: ANION GAP 9 MEQ/L (5-15); BICARBONATE 20.2 MEQ/L (21.0-32.0); BLOOD UREA NITROGEN 55 MG/DL (7-18); CHLORIDE 112 MEQ/L (98-107); GLOMERULAR FILTRATION RATE 37 ML/MIN (>89); POTASSIUM 4.1 MEQ/L (3.5-5.1); SODIUM (NA) 141 MEQ/L (136-145)
[2016-05-10] VITALS (7 sets, daily range): BP systolic 131–156; BP diastolic 58–70; PULSE 79–85; RESP 16–18; TEMP 97–98.3; O2SAT 96–98
[2016-05-10 00:23] LABS: FERRITIN 338 NG/ML (26-388); LDH SERUM 162 U/L (87-241); TRANSFERRIN IRON PROFILE 135 MG/DL (200-360)
[2016-05-10] MEDS: INSULIN ASPART SUPPLEMENTAL SCALE SQ SCH ×4 (05:46→20:42)
[2016-05-10] MEDS: CEFEPIME INJ 2,000 MG in SODIUM CHLORIDE 0.9% INJ 100 ML IV SCH ×3 (05:46→20:45)
[2016-05-10 08:00] LABS: HEMATOCRIT 25.8 % (39.0-51.0); MEAN CELL VOLUME 86.9 FL (80.0-100.0); MEAN CORPUSCULAR HEMOGLOBIN 27.7 PG (27.0-34.0); MEAN CORPUSCULAR HGB CONC 31.9 % (32.0-36.0); PLATELET COUNT 38 TH/MM3 (150-450); RED BLOOD COUNT 2.96 MIL/MM3 (4.50-5.90); RED CELL DISTRIBUTION WIDTH 21.4 % (11.6-17.2); WHITE BLOOD COUNT 2.8 TH/MM3 (4.0-11.0)
[2016-05-10 08:07] LABS: HEMO FLAGS AUTO DIFF
[2016-05-10 08:13] LABS: BICARBONATE 17.2 MEQ/L (21.0-32.0); POTASSIUM 4.3 MEQ/L (3.5-5.1)
[2016-05-10] MEDS: SODIUM CHLORIDE 0.9% FLUSH 5 ML FLUSH FLUSH SCH ×2 (09:00→20:43)
[2016-05-10] MEDS: PANTOPRAZOLE SODIUM 40 MG VIAL IV PUSH SCH (09:06)
[2016-05-10] MEDS: LACTOBACILLUS ACIDOPHILUS TAB PO SCH ×2 (09:07→20:42)
[2016-05-10] MEDS: FOLIC ACID 1 MG TAB PO SCH (09:07)
[2016-05-10 09:16] LABS: BANDS 23 % (0-6); METAMYELOCYTES 1 % (0-1); NEUTROPHIL # MANUAL DIFF 2.7 TH/MM3 (1.8-7.7); POLYS (SEG NEUTROPHILS) 71 % (16-70); WBC DIFF SAMPLE 100
[2016-05-10 09:17] LABS: ACANTHOCYTES OCC (NORMAL); HELMET CELLS OCC (NORMAL); PLATELET ESTIMATE SMEAR LOW (NORMAL); PLATELET MORPHOLOGY ENLARGED (NORMAL)
[2016-05-10 09:18] LABS: SCAN/DIFF FINAL DIFF MANUAL
[2016-05-10] MEDS ORDERED: SODIUM CHLOR 0.9% 250 ML INJ 250 ML IV ONE (10:15)
--- NOTE | 2016-05-10 10:15 | PD.CONS ---
HPI History of Present Illness This is a 75 year old male who was sent from a local nursing facility for worsening mental status changes. While in the ER, she passed a small amount of maroon-colored stool and therefore GI was consulted for further evaluation. He was recently hospitalized last week and was evaluated at that time with EGD () and this revealed grade 2 esophageal varices 3, no active bleeding, no banding because of low hemoglobin and low platelet and high INR, gastropathy with no active bleed, retroflex views revealed no abnormalities. The patient is extremely lethargic and a poor historian and unable to provide much detail. He reports that he did have some blood in his stool, although he cannot state if this was black or maroon in color. He denies any nausea or vomiting. He denies any abdominal pain. He denies any decreased appetite, but states he is not eating much because he does not care for the food here. He denies any known history of liver cirrhosis. He reports that he used to drink alcohol about 20 years ago, but states he was never a heavy drinker. He is not on any blood thinners and does not take ibuprofen. He has not had any further bleeding since arrival to the floor. (Lia Akhtar) PFSH Past Medical History Hypertension Hyperlipidemia Diabetes mellitus Liver cirrhosis Anemia CKD Thrombocytopenia Coagulopathy Past Surgical History Right leg surgery for tib-fib fracture EGD (Lia Akhtar) Coded Allergies: No Known Allergies (Unverified , 05/04/16) Medications Allergies Coded Allergies Type Severity Reaction Last Updated Verified No Known Allergies 05/04/16 No Active Scripts Medications Dose Route/Sig Days Date Category Dose Instructions Pantoprazole (Pantoprazole Sodium) 40 Mg Tab 40 Mg PO Q12HR 05/04/16 Rx Lopressor (Metoprolol Tartrate) 50 Mg Tab 50 Mg PO Q12HR 05/04/16 Rx Sertraline (Sertraline HCl) 50 Mg Tab 50 Mg PO DAILY 05/02/16 Reported Fenofibrate 160 Mg Tab 160 Mg PO DAILY 05/02/16 Reported Ferrous Sulfate 325 Mg Tab 325 Mg PO TID 05/02/16 Reported Metformin (Metformin HCl) 500 Mg Tab 500 Mg PO DAILY 05/02/16 Reported With a meal Family History Reports that his mother is from an unknown type of cancer Social History Patient continues to smoke at least 2 cigars daily. Patient has been smoking since he was 19 years old. States he has not had any alcohol in 20 years and reports that he was never a heavy drinker (Lia Akhtar) Review of Systems Constitutional: COMPLAINS OF: Fatigue, DENIES: Fever, Weight loss, Chills, Change in appetite Cardiovascular: COMPLAINS OF: Lower Extremity Edema, DENIES: Chest pain Gastrointestinal: COMPLAINS OF: Bloody stools, Swelling of Abdomen, DENIES: Abdominal pain, Black stools, Constipation, Diarrhea, Nausea, Vomiting, Heartburn, Hematemesis Musculoskeletal: COMPLAINS OF: Joint pain, Back pain Integumentary: DENIES: Abnormal pigmentation Hematologic/lymphatic: COMPLAINS OF: Bruising Neurologic: DENIES: Headache Psychiatric: DENIES: Confusion (AkhtarLia) GI Exam Vitals I&O Vital Signs Date Time Temp Pulse Resp B/P Pulse Ox O2 Delivery O2 Flow Rate FiO2 05/10/16 08:00 98.3 81 18 137/63 98 05/10/16 05:15 97.2 79 16 156/70 98 05/09/16 23:32 97.9 86 16 157/71 99 05/09/16 21:03 86 05/09/16 20:32 98.0 86 16 157/67 98 05/09/16 11:29 99.1 91 20 160/70 99 I/O 05/09/16 05/09/16 05/09/16 05/10/16 05/10/16 05/10/16 07:00 15:00 23:00 07:00 15:00 23:00 Intake Total 0 ml 1243 ml 360 ml 240 ml Output Total 250 ml 250 ml 125 ml 650 ml Balance -250 ml 993 ml 235 ml -410 ml Intake Oral 0 ml 120 ml 360 ml 240 ml IV Total 1123 ml Output Urine Total 250 ml 250 ml 125 ml 650 ml # Bowel Movements 1 1 1 1 Imaging Last Impressions Head CT 05/08/1647 Signed Impressions: Service Date/Time: Sunday, May 08, 2016 10:14 - CONCLUSION: Normal examination. Itz Barrera MD Chest X-Ray 05/08/16 0969 Signed Impressions: Service Date/Time: Sunday, May 08, 2016 09:45 - CONCLUSION: Normal examination. Itz Barrera MD Abdomen/Pelvis CT 05/08/16 0000 Signed Impressions: Service Date/Time: Sunday, May 08, 2016 10:17 - CONCLUSION: Large amount of ascites in a patient with obvious cirrhosis and splenomegaly. On some of the axial images there is some lower density within the portal vein but without IV contrast I cannot director of sales support its patency. Small nodule left adrenal gland new since 2012. Could be an early spleen or renal shunt. Large amount of ascites without significant bowel wall thickening. Some thickening of the anterior bladder wall. Itz Barrera MD Laboratory Test 05/09/16 05/09/16 05/10/16 15:45 22:31 06:28 Stool C. difficile Toxin (PCR) NEGATIVE Stl C. difficile Toxin PRESUMPTIVE Epiderm 027 NEGATIVE White Blood Count 2.6 TH/MM3 2.8 TH/MM3 Red Blood Count 2.98 MIL/MM3 2.96 MIL/MM3 Hemoglobin 8.2 GM/DL 8.2 GM/DL Hematocrit 25.5 % 25.8 % Mean Corpuscular Volume 85.6 FL 86.9 FL Mean Corpuscular Hemoglobin 27.6 PG 27.7 PG Mean Corpuscular Hemoglobin 32.3 % 31.9 % Concent Red Cell Distribution Width 21.6 % 21.4 % Platelet Count 44 TH/MM3 38 TH/MM3 Mean Platelet Volume 8.2 FL 8.4 FL Reticulocyte Count 5.2 % Absolute Reticulocyte Count 157.4 MIL/L Haptoglobin 49 MG/DL Prothrombin Time 15.6 SEC Prothromb Time International 1.4 RATIO Ratio Activated Partial 39.5 SEC Thromboplast Time Fibrinogen 212 mg/dL Lactic Acid Level 1.5 mmol/L Sodium Level 141 MEQ/L 140 MEQ/L Potassium Level 4.1 MEQ/L 4.3 MEQ/L Chloride Level 112 MEQ/L 113 MEQ/L Carbon Dioxide Level 20.2 MEQ/L 17.2 MEQ/L Anion Gap 9 MEQ/L 10 MEQ/L Blood Urea Nitrogen 55 MG/DL 53 MG/DL Creatinine 1.81 MG/DL 1.68 MG/DL Estimat Glomerular Filtration 37 ML/MIN 40 ML/MIN Rate Random Glucose 207 MG/DL 199 MG/DL Calcium Level 7.6 MG/DL 7.5 MG/DL Iron Level 13 MCG/DL Total Iron Binding Capacity 189 MCG/DL Percent Iron Saturation 6.9 % Ferritin 338 NG/ML Lactate Dehydrogenase 162 U/L Vitamin B12 Level 3211 PG/ML Folate 2.0 NG/ML Neutrophils (%) (Auto) % Lymphocytes (%) (Auto) % Monocytes (%) (Auto) % Eosinophils (%) (Auto) % Basophils (%) (Auto) % Neutrophils # (Auto) TH/MM3 Lymphocytes # (Auto) TH/MM3 Monocytes # (Auto) TH/MM3 Eosinophils # (Auto) TH/MM3 Basophils # (Auto) TH/MM3 CBC Comment AUTO DIFF Differential Total Cells 100 Counted Neutrophils % (Manual) 71 % Band Neutrophils % 23 % Lymphocytes % 4 % Monocytes % 1 % Neutrophils # (Manual) 2.7 TH/MM3 Metamyelocytes 1 % Differential Comment FINAL DIFF MANUAL Platelet Estimate LOW Platelet Morphology Comment ENLARGED Helmet Cells OCC Acanthocytes OCC Date/Time Procedure Status Source Growth 05/09/16 12:56 Aerobic Blood Culture Received Blood Peripheral Pending 05/09/16 12:56 Anaerobic Blood Culture Received Blood Peripheral Pending 05/08/16 11:28 Aerobic Blood Culture - Preliminary Resulted Blood Peripheral Gram Negative Carlitos 05/08/16 11:28 Anaerobic Blood Culture - Preliminary Resulted Gram Negative Carlitos 05/08/16 11:20 Gram Stain - Final Resulted Fluid Peritoneal Fluid 05/08/16 11:20 Body Fluid Culture - Preliminary Resulted Fluid Peritoneal Fluid NO GROWTH IN 24 HOURS. 05/08/16 11:15 Urine Culture - Preliminary Resulted Urine Catheterized Urine Gram Negative Carlitos 05/08/16 10:00 Gram Stain Received Fluid Peritoneal Fluid Pending 05/08/16 10:00 Body Fluid Culture Received Fluid Peritoneal Fluid Pending Physical Examination HEENT: Normocephalic; atraumatic; no jaundice. CHEST: CTA CARDIAC: RRR ABDOMEN: Soft, distended with large amount of ascites, nontender; hepatosplenomegaly; bowel sounds are present in all four quadrants. EXTREMITIES: BLE edema. SKIN: Normal; no rash; no jaundice. REVENUE MANAGER: No focal deficits; Lethargic and oriented times three. (Lia Akhtar) Assessment and Plan Plan ASSESSMENT: - GIB, Hematochezia. S/P Recent EGD (05/03/16)---> Grade 2 esophageal varices 3 no active bleed. No banding because of low hgb, low plt, high inr. Pt was discharged to nursing facility and brought back for AMS. He is lethargic, but oriented, although a poor historian. While in ER, he passed small amount of maroon colored blood. Pt cannot provide any information about this. No n/v. No abdominal pain. HH 8.2/.8. - Anemia, acute blood loss. HH 8.2/.8. - Liver cirrhosis. Patient denies any history of liver cirrhosis. He was diagnosed during his last admission. He denies any history of heavy alcohol use. We will order the liver workup, since the etiology of this is unclear. He does have advanced liver cirrhosis, with MELD of 16, with coagulopathy, varices, thrombocytopenia, and elevated LFTs with low albumin. - Ascites, large amount. Not tense or painful. Afebrile. Will start spironolactone and lasix. - Coagulopathy/Thrombocytopenia. Plt 38. PT 15.6, INR 1.4. - HTN, Hyperlipidemia, DM, CKD per primary. PLAN: - Plan for EGD with possible band ligation and colonoscopy in a.m. - Obtain consents - Clear liquid diet - Nothing by mouth after midnight - GoLYTELY prep - Platelet pack tomorrow morning at 6 AM - Continue Protonix - Add Lasix 20 mg by mouth daily - Add spironolactone 25 mg by mouth daily - Recommend restarting his beta chelsea when able - CBC. PT/INR, BMP and a.m. - Notify GI if INR greater than 1.5 any - Supportive care - Further recommendations to follow based on results of above - Pt seen and examined by Dr. Rodriguez and myself and this note is written on his behalf (Lia Akhtar) Physician Comments Patient seen and examined Agree with above Continue with current supportive care Monitor labs Plan for EGD colonoscopy tomorrow (Eladio Rodriguez MD) Lia Akhtar May 10, 2016 10:15 Eladio Rodriguez MD May 10, 2016 19:39
--- NOTE | 2016-05-10 10:25 | PD.ONC.PN ---
Subjective Subjective Remarks Afebrile overnight. Patient resting comfortably without complaint. No events this AM. Objective Data Date Time Temp Pulse Resp B/P Pulse Ox O2 Delivery O2 Flow Rate FiO2 05/10/16 08:00 98.3 81 18 137/63 98 05/10/16 05:15 97.2 79 16 156/70 98 05/09/16 23:32 97.9 86 16 157/71 99 05/09/16 21:03 86 05/09/16 20:32 98.0 86 16 157/67 98 05/09/16 11:29 99.1 91 20 160/70 99 05/10/16 05/10/16 05/10/16 07:00 15:00 23:00 Intake Total 240 ml Output Total 650 ml Balance -410 ml Result Diagram: 05/10/1628 05/10/16627 Laboratory Results Laboratory Tests Test 05/09/16 05/09/16 05/10/16 15:45 22:31 06:28 Stool C. difficile Toxin (PCR) NEGATIVE Stl C. difficile Toxin PRESUMPTIVE Epiderm 027 NEGATIVE White Blood Count 2.6 TH/MM3 2.8 TH/MM3 Red Blood Count 2.98 MIL/MM3 2.96 MIL/MM3 Hemoglobin 8.2 GM/DL 8.2 GM/DL Hematocrit 25.5 % 25.8 % Mean Corpuscular Volume 85.6 FL 86.9 FL Mean Corpuscular Hemoglobin 27.6 PG 27.7 PG Mean Corpuscular Hemoglobin 32.3 % 31.9 % Concent Red Cell Distribution Width 21.6 % 21.4 % Platelet Count 44 TH/MM3 38 TH/MM3 Mean Platelet Volume 8.2 FL 8.4 FL Reticulocyte Count 5.2 % Absolute Reticulocyte Count 157.4 MIL/L Haptoglobin 49 MG/DL Prothrombin Time 15.6 SEC Prothromb Time International 1.4 RATIO Ratio Activated Partial 39.5 SEC Thromboplast Time Fibrinogen 212 mg/dL Lactic Acid Level 1.5 mmol/L Sodium Level 141 MEQ/L 140 MEQ/L Potassium Level 4.1 MEQ/L 4.3 MEQ/L Chloride Level 112 MEQ/L 113 MEQ/L Carbon Dioxide Level 20.2 MEQ/L 17.2 MEQ/L Anion Gap 9 MEQ/L 10 MEQ/L Blood Urea Nitrogen 55 MG/DL 53 MG/DL Creatinine 1.81 MG/DL 1.68 MG/DL Estimat Glomerular Filtration 37 ML/MIN 40 ML/MIN Rate Random Glucose 207 MG/DL 199 MG/DL Calcium Level 7.6 MG/DL 7.5 MG/DL Iron Level 13 MCG/DL Total Iron Binding Capacity 189 MCG/DL Percent Iron Saturation 6.9 % Ferritin 338 NG/ML Lactate Dehydrogenase 162 U/L Vitamin B12 Level 3211 PG/ML Folate 2.0 NG/ML Neutrophils (%) (Auto) % Lymphocytes (%) (Auto) % Monocytes (%) (Auto) % Eosinophils (%) (Auto) % Basophils (%) (Auto) % Neutrophils # (Auto) TH/MM3 Lymphocytes # (Auto) TH/MM3 Monocytes # (Auto) TH/MM3 Eosinophils # (Auto) TH/MM3 Basophils # (Auto) TH/MM3 CBC Comment AUTO DIFF Differential Total Cells 100 Counted Neutrophils % (Manual) 71 % Band Neutrophils % 23 % Lymphocytes % 4 % Monocytes % 1 % Neutrophils # (Manual) 2.7 TH/MM3 Metamyelocytes 1 % Differential Comment FINAL DIFF MANUAL Platelet Estimate LOW Platelet Morphology Comment ENLARGED Helmet Cells OCC Acanthocytes OCC Culture Results Microbiology Date/Time Procedure Status Source Growth 05/08/16 09:47 Aerobic Blood Culture Received Blood Peripheral Pending 05/08/16 09:47 Anaerobic Blood Culture Received Blood Peripheral Pending 05/08/16 10:00 Gram Stain Received Fluid Peritoneal Fluid Pending 05/08/16 10:00 Body Fluid Culture Received Fluid Peritoneal Fluid Pending 05/08/16 11:15 Urine Culture - Final Complete Urine Catheterized Urine Escherichia Coli 05/08/16 11:20 Gram Stain - Final Resulted Fluid Peritoneal Fluid 05/08/16 11:20 Body Fluid Culture - Preliminary Resulted Fluid Peritoneal Fluid NO GROWTH IN 24 HOURS. 05/08/16 11:25 Aerobic Blood Culture - Preliminary Resulted Blood Peripheral Escherichia Coli 05/08/16 11:25 Anaerobic Blood Culture - Preliminary Resulted Gram Negative Carlitos 05/08/16 11:28 Aerobic Blood Culture - Preliminary Resulted Blood Peripheral Gram Negative Carlitos 05/08/16 11:28 Anaerobic Blood Culture - Preliminary Resulted Gram Negative Carlitos 05/09/16 12:50 Aerobic Blood Culture Received Blood Peripheral Pending 05/09/16 12:50 Anaerobic Blood Culture Received Blood Peripheral Pending 05/09/16 12:56 Aerobic Blood Culture Received Blood Peripheral Pending 05/09/16 12:56 Anaerobic Blood Culture Received Blood Peripheral Pending Administered Medications Medications (Trade) Dose Ordered Sig/Melania Route PRN Reason Start Time Stop Time Status Last Admin Dose Admin IV Flush 2 ml 2 ml BID FLUSH 05/08/16 21:00 05/10/16 09:00 Cefepime HCl/ Sodium Chloride (Maxipime Inj/NS Inj) 100 ml @ 200 mls/hr Q8H IV 05/08/16 21:00 05/10/16 05:46 Lactobacillus Acidophilus 1 tab 1 tab Q12HR PO 05/08/16 21:00 05/10/16 09:07 Sodium Chloride (NS 1000 ml Inj) 1,000 ml @ 84 mls/hr [id number] IV 05/08/16 14:45 Hold 05/09/16 14:35 Pantoprazole Sodium (Protonix Inj) 40 mg Q24H IV PUSH 05/09/16 09:00 05/10/16 09:06 Folic Acid (Folate) 1 mg DAILY PO 05/10/16 09:00 05/10/16 09:07 Objective Remarks GENERAL: Jaundiced middle aged male, lying supine in bed SKIN: Warm and dry. HEAD: Normocephalic. EYES: + scleral icterus. No injection or drainage. NECK: Supple, trachea midline. CARDIOVASCULAR: Regular rate and rhythm RESPIRATORY: Breath sounds equal bilaterally. No accessory muscle use. GASTROINTESTINAL: Abdomen soft, non-tender, nondistended. EXTREMITIES: No cyanosis NEUROLOGICAL: awake and alert, normal speech. Assessment/Plan Problem List: (1) Pancytopenia Status: Acute Plan: --blood counts should improve to baseline once infection is controlled --Due to sepsis. --has baseline anemia and thrombocytopenia due to cirrhosis and splenomegaly. --further drop in blood count likely due to sepsis and possible DIC. --low folate--will start on daily folate replacement --transfuse for hgb<7 or any sign of bleeding. (2) Sepsis Status: Acute Plan: BC +GNR --UTI vs SBP --on abx per ID (3) GI bleed Status: Acute Plan: --Recent GI bleed due to esophageal varices. --has no gross GI bleeding at this time. Continue to monitor hemoglobin. Assessment 75y/o male with pancytopenia, admitted with altered mental status h/o Diabetes mellitus. Recent GI bleed. Grade 3 esophageal varices. Hypertension. Hyperlipidemia. Cirrhosis. Splenomegaly. Plan 1. monitor CBC 2. start folate, 1mg/day 3. supportive care Attending Statement The exam, history, and the medical decision-making described in the above note were completed with the assistance of the mid-level provider. I reviewed and agree with the findings presented. I attest that I had a [id number] encounter with the patient on the same day, and personally performed and documented my assessment and findings in the medical record. Feeling better. No abdominal pain. No bleeding reported. Folate was low, start folic acid supplement. Continue to monitor CBC. Problem Qualifiers (1) Sepsis: Qualified Code: A41.51 - Sepsis due to Escherichia coli oJanna Jaramillo May 10, 2016 10:25 Adán Diehl MD May 10, 2016 17:07
[2016-05-10 12:22] LABS: FERRITIN 322 NG/ML (26-388); TRANSFERRIN IRON PROFILE 126 MG/DL (200-360)
--- NOTE | 2016-05-10 12:29 | HHI.PR ---
Subjective Remarks Follow-up toxic metabolic encephalopathy/UTI/sepsis/bacteremia 05/09/16-patient seen and examined, alert and oriented to self, date of however somewhat lethargic. Currently afebrile, however for blood culture positive. No GI bleed 05/10/16-patient seen and examined, resting and no acute GI bleed. Currently afebrile. Son by the bedside Objective Vitals Vital Signs Date Time Temp Pulse Resp B/P Pulse Ox O2 Delivery O2 Flow Rate FiO2 05/10/16 09:00 85 05/10/16 08:00 98.3 81 18 137/63 98 05/10/16 05:15 97.2 79 16 156/70 98 05/09/16 23:32 97.9 86 16 157/71 99 05/09/16 21:03 86 05/09/16 20:32 98.0 86 16 157/67 98 I/O 05/09/16 05/09/16 05/09/16 05/10/16 05/10/16 05/10/16 06:59 14:59 22:59 06:59 14:59 22:59 Intake Total 0 ml 1243 ml 360 ml 240 ml Output Total 250 ml 250 ml 125 ml 650 ml Balance -250 ml 993 ml 235 ml -410 ml Intake Oral 0 ml 120 ml 360 ml 240 ml IV Total 1123 ml Output Urine Total 250 ml 250 ml 125 ml 650 ml # Bowel Movements 1 1 1 1 Result Diagram: 05/10/1662705/10/16627 Imaging Last Impressions Head CT 05/08/1647 Signed Impressions: Service Date/Time: Sunday, May 08, 2016 10:14 - CONCLUSION: Normal examination. Itz Barrera MD Chest X-Ray 05/08/1647 Signed Impressions: Service Date/Time: Sunday, May 08, 2016 09:45 - CONCLUSION: Normal examination. Itz Barrera MD Abdomen/Pelvis CT 05/08/16 0000 Signed Impressions: Service Date/Time: Sunday, May 08, 2016 10:17 - CONCLUSION: Large amount of ascites in a patient with obvious cirrhosis and splenomegaly. On some of the axial images there is some lower density within the portal vein but without IV contrast I cannot medical fee clerk its patency. Small nodule left adrenal gland new since 2012. Could be an early spleen or renal shunt. Large amount of ascites without significant bowel wall thickening. Some thickening of the anterior bladder wall. Itz Barrera MD Objective Remarks GENERAL: NAD however lethargic SKIN: Warm and dry. HEAD: Normocephalic. EYES: No scleral icterus. No injection or drainage. NECK: Supple, trachea midline. No JVD or lymphadenopathy. CARDIOVASCULAR: Regular rate and rhythm without murmurs, gallops, or rubs. RESPIRATORY: Breath sounds equal bilaterally. No accessory muscle use. GASTROINTESTINAL: Abdomen soft, non-tender, nondistended. MUSCULOSKELETAL: No cyanosis, or edema. BACK: Nontender without obvious deformity. No CVA tenderness. A/P Problem List: (1) Toxic metabolic encephalopathy ICD Code: G92 Status: Acute (2) SBP (spontaneous bacterial peritonitis) ICD Code: K65.2 Status: Acute (3) UTI (urinary tract infection) ICD Code: N39.0 Status: Acute (4) Sepsis ICD Code: A41.9 Status: Acute (5) Pancytopenia ICD Code: D61.818 Status: Acute (6) Diabetes mellitus ICD Code: E11.9 Status: Acute (7) Diabetes mellitus type 2 in obese ICD Code: E11.9 Status: Acute (8) GI bleed ICD Code: K92.2 Status: Acute (9) Esophageal varices ICD Code: I85.00 Status: Acute Assessment and Plan 75-year-old male with 1-Sepsis/[id number]: Likely source UTI; currently on cefepime pending culture report. Appreciate input from ID 2-Toxic metabolic versus hepatic encephalopathy: Likely secondary UTI. 3-SBP: Status post paracentesis with fluid culture pending. Status post cefepime IV in ED, continue with cefepime 2 g every 8 hour pending culture reports along with cytology 4-UTI: Currently on Cefepime pending Urine culture 5-Hyperammonemia: Now resolved, will discontinue lactulose 6-Recent history of GI bleed: With recent diagnosis of esophageal varices. H&H currently stable and no active bleeding, Protonix IV. GI to perform EGD with banding of varices 05/11. Currently on spironolactone and Lasix secondary to ascites 7-Chronic kidney disease stage III: Renal indices stable, and avoid all nephrotoxic drugs 8-Hypertension: continue outpatient medication 9-Diabetes type 2: Hold oral hypoglycemic agent, medium sliding scale insulin. 10-DVT prophylaxis: Bilateral SCDs 11-Pancytopenia: Appear to be secondary to current infection vs DIC, appreciate input from hematology, continue with current treatment. Daily folate. Problem Qualifiers (1) Sepsis: Qualified Code: A41.51 - Sepsis due to Escherichia coli Bob Mitchell MD May 10, 2016 12:29 Bob Mitchell MD May 10, 2016 12:29
[2016-05-10] MEDS: SPIRONOLACTONE 25 MG TAB PO SCH (13:11)
[2016-05-10] MEDS: FUROSEMIDE 20 MG TAB PO SCH (13:12)
[2016-05-10] MEDS ORDERED: PEG (High)/E-LYTE SOLN 4000 ML BTL PO ONE (16:00)
--- NOTE | 2016-05-10 20:08 | HHI.IDPN ---
Subjective Subjective Remarks Mr. Owen is a 75-year-old male with past medical history significant for type 2 diabetes, recent GI bleed was admitted to [facility] secondary to GI bleed and symptomatic anemia. Patient was evaluated by GI at that time and underwent an EGD which showed grade 3 esophageal varices. No banding was done during that admission due to low platelets per review of medical records. Patient was having were transfused 2 units during that hospitalization and was discharged in stable condition to a local nursing facility and every 2016. She was brought into the emergency department for evaluation of his altered mental status. Per patient's son he started declining 2 days after discharge and his condition worsened to the present point where he is now confused complaining of abdominal pain. No reported GI bleeding per medical records but at the time of my evaluation patient was having black tarry stools. During my examination patient was lethargic and difficult to arouse and did not follow commands for me. CT head was done which was normal. A chest x-ray was normal. An abdominal pelvis CT was done which showed large amount of ascites and patient underwent paracentesis earlier today. Patient has progressively become more leukopenic with thrombocytopenia low H&H and hematology has been consulted. Delayed entry patient seen at ~ 1 pm Overnight events reviewed. No fevers No rash No diarrhea More alert today. Antibiotics Cefepime IV Lines Line sites with no e.o infection Past Medical History reviewed Allergies: Coded Allergies: No Known Allergies (Unverified , 05/04/16) Objective . Vital Signs Date Time Temp Pulse Resp B/P Pulse Ox O2 Delivery O2 Flow Rate FiO2 05/10/16 16:00 97.4 82 18 153/66 97 05/10/16 12:00 97.0 85 18 142/63 96 05/10/16 09:00 85 05/10/16 08:00 98.3 81 18 137/63 98 05/10/16 05:15 97.2 79 16 156/70 98 05/09/16 23:32 97.9 86 16 157/71 99 05/09/16 21:03 86 05/09/16 20:32 98.0 86 16 157/67 98 05/09/16 05/09/16 05/10/16 15:00 23:00 07:00 Intake Total 1243 ml 360 ml 240 ml Output Total 250 ml 125 ml 650 ml Balance 993 ml 235 ml -410 ml Intake Oral 120 ml 360 ml 240 ml IV Total 1123 ml Output Urine Total 250 ml 125 ml 650 ml # Bowel Movements 1 1 1 . Laboratory Tests Test 05/09/16 05/09/16 05/10/16 07:10 22:31 06:28 White Blood Count 2.9 TH/MM3 2.6 TH/MM3 2.8 TH/MM3 Red Blood Count 2.82 MIL/MM3 2.98 MIL/MM3 2.96 MIL/MM3 Hemoglobin 7.7 GM/DL 8.2 GM/DL 8.2 GM/DL Hematocrit 24.2 % 25.5 % 25.8 % Mean Corpuscular Volume 85.9 FL 85.6 FL 86.9 FL Mean Corpuscular Hemoglobin 27.3 PG 27.6 PG 27.7 PG Mean Corpuscular Hemoglobin 31.7 % 32.3 % 31.9 % Concent Red Cell Distribution Width 21.4 % 21.6 % 21.4 % Platelet Count 45 TH/MM3 44 TH/MM3 38 TH/MM3 Mean Platelet Volume 8.0 FL 8.2 FL 8.4 FL Neutrophils (%) (Auto) % % Lymphocytes (%) (Auto) % % Monocytes (%) (Auto) % % Eosinophils (%) (Auto) % % Basophils (%) (Auto) % % Neutrophils # (Auto) TH/MM3 TH/MM3 Lymphocytes # (Auto) TH/MM3 TH/MM3 Monocytes # (Auto) TH/MM3 TH/MM3 Eosinophils # (Auto) TH/MM3 TH/MM3 Basophils # (Auto) TH/MM3 TH/MM3 CBC Comment AUTO DIFF AUTO DIFF Differential Total Cells 100 100 Counted Neutrophils % (Manual) 72 % 71 % Band Neutrophils % 25 % 23 % Lymphocytes % 2 % 4 % Monocytes % 1 % 1 % Neutrophils # (Manual) 2.8 TH/MM3 2.7 TH/MM3 Nucleated Red Blood Cells 1 /100 WBC Differential Comment FINAL DIFF FINAL DIFF MANUAL MANUAL Platelet Estimate LOW LOW Platelet Morphology Comment NORMAL ENLARGED Ovalocytes 1+ Helmet Cells OCC OCC Acanthocytes OCC OCC Reticulocyte Count 5.2 % Absolute Reticulocyte Count 157.4 MIL/L Haptoglobin 49 MG/DL Metamyelocytes 1 % Laboratory Tests Test 05/09/16 05/09/16 05/10/16 05/10/16 07:10 22:31 06:28 11:33 Sodium Level 143 MEQ/L 141 MEQ/L 140 MEQ/L Potassium Level 4.2 MEQ/L 4.1 MEQ/L 4.3 MEQ/L Chloride Level 114 MEQ/L 112 MEQ/L 113 MEQ/L Carbon Dioxide Level 15.9 MEQ/L 20.2 MEQ/L 17.2 MEQ/L Anion Gap 13 MEQ/L 9 MEQ/L 10 MEQ/L Blood Urea Nitrogen 58 MG/DL 55 MG/DL 53 MG/DL Creatinine 1.81 MG/DL 1.81 MG/DL 1.68 MG/DL Estimat Glomerular Filtration 37 ML/MIN 37 ML/MIN 40 ML/MIN Rate Random Glucose 173 MG/DL 207 MG/DL 199 MG/DL Calcium Level 7.7 MG/DL 7.6 MG/DL 7.5 MG/DL Total Bilirubin 2.1 MG/DL Aspartate Amino Transf 40 U/L (AST/SGOT) Alanine Aminotransferase 27 U/L (ALT/SGPT) Alkaline Phosphatase 85 U/L Ammonia 12 MCMOL/L Total Protein 5.7 GM/DL Albumin 1.8 GM/DL Lactic Acid Level 1.5 mmol/L Iron Level 13 MCG/DL 12 MCG/DL Total Iron Binding Capacity 189 MCG/DL 176 MCG/DL Percent Iron Saturation 6.9 % 6.8 % Ferritin 338 NG/ML 322 NG/ML Lactate Dehydrogenase 162 U/L Vitamin B12 Level 3211 PG/ML Folate 2.0 NG/ML Tumor Marker Alpha Fetoprotein 2822.1 NG/ML Microbiology Date/Time Procedure Status Source Growth 05/08/16 09:47 Aerobic Blood Culture Received Blood Peripheral Pending 05/08/16 09:47 Anaerobic Blood Culture Received Blood Peripheral Pending 05/08/16 10:00 Gram Stain Received Fluid Peritoneal Fluid Pending 05/08/16 10:00 Body Fluid Culture Received Fluid Peritoneal Fluid Pending 05/08/16 11:15 Urine Culture - Final Complete Urine Catheterized Urine Escherichia Coli 05/08/16 11:20 Gram Stain - Final Resulted Fluid Peritoneal Fluid 05/08/16 11:20 Body Fluid Culture - Preliminary Resulted Fluid Peritoneal Fluid NO GROWTH IN 48 HOURS. 05/08/16 11:25 Aerobic Blood Culture - Preliminary Resulted Blood Peripheral Escherichia Coli 05/08/16 11:25 Anaerobic Blood Culture - Preliminary Resulted Escherichia Coli 05/08/16 11:28 Aerobic Blood Culture - Preliminary Resulted Blood Peripheral Escherichia Coli 05/08/16 11:28 Anaerobic Blood Culture - Preliminary Resulted Escherichia Coli 05/09/16 12:50 Aerobic Blood Culture - Preliminary Resulted Blood Peripheral NO GROWTH IN 1 DAY 05/09/16 12:50 Anaerobic Blood Culture - Preliminary Resulted Blood Peripheral NO GROWTH IN 1 DAY 05/09/16 12:56 Aerobic Blood Culture - Preliminary Resulted Blood Peripheral NO GROWTH IN 1 DAY 05/09/16 12:56 Anaerobic Blood Culture - Preliminary Resulted Blood Peripheral NO GROWTH IN 1 DAY Imaging Last Impressions Head CT 05/08/1647 Signed Impressions: Service Date/Time: Sunday, May 08, 2016 10:14 - CONCLUSION: Normal examination. Itz Barerra MD Chest X-Ray 05/08/1647 Signed Impressions: Service Date/Time: Sunday, May 08, 2016 09:45 - CONCLUSION: Normal examination. Itz Barrera MD Abdomen/Pelvis CT 05/08/16 0000 Signed Impressions: Service Date/Time: Sunday, May 08, 2016 10:17 - CONCLUSION: Large amount of ascites in a patient with obvious cirrhosis and splenomegaly. On some of the axial images there is some lower density within the portal vein but without IV contrast I cannot tech writer its patency. Small nodule left adrenal gland new since 2012. Could be an early spleen or renal shunt. Large amount of ascites without significant bowel wall thickening. Some thickening of the anterior bladder wall. Itz Barrera MD Physical Exam GENERAL: Acutely ill, male patient, in no apparent distress. SKIN: No rashes, ecchymoses or lesions. Cool and dry. HEAD: Atraumatic. Normocephalic. No temporal or scalp tenderness. EYES: Pupils equal round and reactive. Extraocular motions intact. No scleral icterus. No injection or drainage. ENT: Grossly nothing abnormal detected. NECK: Trachea midline. Supple, nontender, no meningeal signs. CARDIOVASCULAR: Regular rate and rhythm without murmurs, gallops, or rubs. RESPIRATORY: Clear to auscultation. Breath sounds equal bilaterally. No wheezes , rales, or rhonchi. GASTROINTESTINAL: Abdomen distended, minimal tenderness. Signs of free fluid present. MUSCULOSKELETAL: Extremities without clubbing, cyanosis, or edema. NEUROLOGICAL: Lethargic. Moans. Did not open eyes or follow commands. Psych could not be assessed IV line sites with no evidence of infection. Assessment & Plan Remarks Sepsis present on admission. Gram-negative bacteremia, possible Escherichia coli Gram-negative UTI possibly complicated, urinary bladder wall thickening Acute lower GI bleed with low H&H Acute metabolic encephalopathy. Acute renal failure prerenal, sepsis Recommendations: Continue cefepime IV (Escherichia coli based on Verigene testing, no resistance markers noted) Discussed with RN Follow cultures follow clinically Flora Saha MD May 10, 2016 20:08
[2016-05-11] VITALS (10 sets, daily range): BP systolic 120–156; BP diastolic 58–72; PULSE 81–94; RESP 18–20; TEMP 97.3–97.9; O2SAT 95–99
[2016-05-11] MEDS: INSULIN ASPART SUPPLEMENTAL SCALE SQ SCH ×4 (06:21→20:47)
[2016-05-11 07:52] LABS: AUTOMATED NEUTROPHIL # 2.1 TH/MM3 (1.8-7.7); BASOPHIL % 0.3 % (0.0-2.0); EOSINOPHIL % 1.8 % (0.0-4.0); HEMATOCRIT 23.9 % (39.0-51.0); LYMPH % 12.2 % (9.0-44.0); LYMPHOCYTE # 0.3 TH/MM3 (1.0-4.8); MEAN CELL VOLUME 84.7 FL (80.0-100.0); MEAN CORPUSCULAR HEMOGLOBIN 27.6 PG (27.0-34.0); MEAN CORPUSCULAR HGB CONC 32.6 % (32.0-36.0); MONO % 5.5 % (0.0-8.0); NEUT % 80.2 % (16.0-70.0); PLATELET COUNT 37 TH/MM3 (150-450); RED BLOOD COUNT 2.83 MIL/MM3 (4.50-5.90); RED CELL DISTRIBUTION WIDTH 21.1 % (11.6-17.2); WHITE BLOOD COUNT 2.7 TH/MM3 (4.0-11.0)
[2016-05-11 07:56] LABS: HEMO FLAGS AUTO DIFF
[2016-05-11 07:59] LABS: INTERNATIONAL NORMALIZED RATIO 1.3 RATIO; PROTHROMBIN TIME - PATIENT 14.2 SEC (9.8-11.6)
[2016-05-11 08:17] LABS: INDIRECT BILIRUBIN 0.5 MG/DL (0.0-0.8); TOTAL BILIRUBIN ADULT 1.5 MG/DL (0.2-1.0)
[2016-05-11 08:34] LABS: PLATELET ESTIMATE SMEAR LOW (NORMAL); PLATELET MORPHOLOGY NORMAL (NORMAL); SCAN/DIFF AUTO DIFF CONFIRMED
[2016-05-11] MEDS: SODIUM CHLORIDE 0.9% FLUSH 5 ML FLUSH FLUSH SCH ×2 (09:00→20:48)
[2016-05-11] MEDS: FOLIC ACID 1 MG TAB PO SCH (09:12)
[2016-05-11] MEDS: FUROSEMIDE 20 MG TAB PO SCH (09:12)
[2016-05-11] MEDS: LACTOBACILLUS ACIDOPHILUS TAB PO SCH ×2 (09:12→20:47)
[2016-05-11] MEDS: CEFEPIME INJ 2,000 MG in SODIUM CHLORIDE 0.9% INJ 100 ML IV SCH ×2 (09:12→20:48)
[2016-05-11] MEDS: SPIRONOLACTONE 25 MG TAB PO SCH (09:12)
[2016-05-11] MEDS: PANTOPRAZOLE SODIUM 40 MG VIAL IV PUSH SCH (09:12)
--- NOTE | 2016-05-11 09:20 | HHI.PR ---
Subjective Remarks Follow-up toxic metabolic encephalopathy/UTI/sepsis/bacteremia 05/09/16-patient seen and examined, alert and oriented to self, date of however somewhat lethargic. Currently afebrile, however for blood culture positive. No GI bleed 05/10/16-patient seen and examined, resting and no acute GI bleed. Currently afebrile. Son by the bedside 05/11/16-patient seen and examined, he was alert and oriented 2. Patient stated this morning that he was still alive. Plan for panendoscopy today. Elevated AFP Objective Vitals Vital Signs Date Time Temp Pulse Resp B/P Pulse Ox O2 Delivery O2 Flow Rate FiO2 05/11/16 06:38 97.3 84 18 129/60 99 05/11/16 06:10 97.4 81 20 139/64 99 05/11/16 04:00 97.4 86 20 120/58 99 05/11/16 00:00 97.5 84 20 139/65 95 05/10/16 20:05 79 05/10/16 20:00 97.4 84 16 131/58 98 05/10/16 16:00 97.4 82 18 153/66 97 05/10/16 12:00 97.0 85 18 142/63 96 I/O 05/10/16 05/10/16 05/10/16 05/11/16 05/11/16 05/11/16 07:00 15:00 23:00 07:00 15:00 23:00 Intake Total 240 ml 480 ml 240 ml 0 ml Output Total 650 ml 400 ml 200 ml 400 ml Balance -410 ml 80 ml 40 ml -400 ml Intake Oral 240 ml 480 ml 240 ml 0 ml Output Urine Total 650 ml 400 ml 200 ml 400 ml # Bowel Movements 1 0 0 3 Result Diagram: 05/11/16 0716 05/10/16 0628 Objective Remarks GENERAL: NAD SKIN: Warm and dry. HEAD: Normocephalic. EYES: No scleral icterus. No injection or drainage. NECK: Supple, trachea midline. No JVD or lymphadenopathy. CARDIOVASCULAR: Regular rate and rhythm without murmurs, gallops, or rubs. RESPIRATORY: Breath sounds equal bilaterally. No accessory muscle use. GASTROINTESTINAL: Abdomen soft, non-tender,distended. MUSCULOSKELETAL: No cyanosis, or edema. BACK: Nontender without obvious deformity. No CVA tenderness. A/P Problem List: (1) Toxic metabolic encephalopathy ICD Code: G92 Status: Acute (2) SBP (spontaneous bacterial peritonitis) ICD Code: K65.2 Status: Acute (3) UTI (urinary tract infection) ICD Code: N39.0 Status: Acute (4) Sepsis ICD Code: A41.9 Status: Acute (5) Pancytopenia ICD Code: D61.818 Status: Acute (6) Diabetes mellitus ICD Code: E11.9 Status: Acute (7) Diabetes mellitus type 2 in obese ICD Code: E11.9 Status: Acute (8) GI bleed ICD Code: K92.2 Status: Acute (9) Esophageal varices ICD Code: I85.00 Status: Acute Assessment and Plan 75-year-old male with 1-Sepsis/qppevmfflt-wify-pwscjezv: Likely source UTI; currently on cefepime pending culture report. Appreciate input from ID 2-Toxic metabolic versus hepatic encephalopathy: Resolved 3-SBP: Status post paracentesis with fluid culture pending. Status post cefepime IV in ED, continue with cefepime 2 g every 8 hour pending culture reports along with cytology 4-UTI: Currently on Cefepime pending Urine culture 5-Hyperammonemia: Now resolved 6-Recent history of GI bleed: With recent diagnosis of esophageal varices. H&H currently stable and no active bleeding, Protonix IV. GI to perform EGD with banding of varices today 05/11. Currently on spironolactone and Lasix secondary to ascites. Elevated AFP. Negative hepatitis profile 7-Chronic kidney disease stage III: Renal indices stable, and avoid all nephrotoxic drugs 8-Hypertension: continue outpatient medication 9-Diabetes type 2: Hold oral hypoglycemic agent, medium sliding scale insulin. 10-DVT prophylaxis: Bilateral SCDs 11-Pancytopenia: Appear to be secondary to current infection vs DIC, appreciate input from hematology, continue with current treatment. Daily folate. Problem Qualifiers (1) Sepsis: Qualified Code: A41.51 - Sepsis due to Escherichia coli Bob Mitchell MD May 11, 2016 09:20
--- NOTE | 2016-05-11 11:19 | PD.ONC.PN ---
Subjective Subjective Remarks Afebrile overnight. Patient resting comfortably without complaint. About to go downstairs for colonoscopy. Objective Data Date Time Temp Pulse Resp B/P Pulse Ox O2 Delivery O2 Flow Rate FiO2 05/11/16 10:39 97.3 84 18 129/60 99 05/11/16 09:00 86 05/11/16 08:00 97.3 84 20 156/67 95 05/11/16 06:38 97.3 84 18 129/60 99 05/11/16 06:10 97.4 81 20 139/64 99 05/11/16 04:00 97.4 86 20 120/58 99 05/11/16 00:00 97.5 84 20 139/65 95 05/10/16 20:05 79 05/10/16 20:00 97.4 84 16 131/58 98 05/10/16 16:00 97.4 82 18 153/66 97 05/10/16 12:00 97.0 85 18 142/63 96 05/11/16 05/11/16 05/11/16 07:00 15:00 23:00 Intake Total 0 ml Output Total 400 ml Balance -400 ml Result Diagram: 05/11/16 0716 05/10/16 0628 Laboratory Results Laboratory Tests Test 05/10/16 05/11/16 05/11/16 11:33 00:44 07:16 Iron Level 12 MCG/DL Total Iron Binding Capacity 176 MCG/DL Percent Iron Saturation 6.8 % Ferritin 322 NG/ML Tumor Marker Alpha Fetoprotein 2822.1 NG/ML Hepatitis A IgM Antibody NEGATIVE Hepatitis B Surface Antigen NEGATIVE Hepatitis B Core IgM Antibody NEGATIVE Hepatitis C Antibody NEGATIVE Blood Type O POSITIVE Antibody Screen NEGATIVE Blood Bank Comment White Blood Count 2.7 TH/MM3 Red Blood Count 2.83 MIL/MM3 Hemoglobin 7.8 GM/DL Hematocrit 23.9 % Mean Corpuscular Volume 84.7 FL Mean Corpuscular Hemoglobin 27.6 PG Mean Corpuscular Hemoglobin 32.6 % Concent Red Cell Distribution Width 21.1 % Platelet Count 37 TH/MM3 Mean Platelet Volume 8.3 FL Neutrophils (%) (Auto) 80.2 % Lymphocytes (%) (Auto) 12.2 % Monocytes (%) (Auto) 5.5 % Eosinophils (%) (Auto) 1.8 % Basophils (%) (Auto) 0.3 % Neutrophils # (Auto) 2.1 TH/MM3 Lymphocytes # (Auto) 0.3 TH/MM3 Monocytes # (Auto) 0.1 TH/MM3 Eosinophils # (Auto) 0.0 TH/MM3 Basophils # (Auto) 0.0 TH/MM3 CBC Comment AUTO DIFF Differential Comment AUTO DIFF CONFIRMED Platelet Estimate LOW Platelet Morphology Comment NORMAL Prothrombin Time 14.2 SEC Prothromb Time International 1.3 RATIO Ratio Total Bilirubin 1.5 MG/DL Direct Bilirubin 1.0 MG/DL Indirect Bilirubin 0.5 MG/DL Aspartate Amino Transf 38 U/L (AST/SGOT) Alanine Aminotransferase 25 U/L (ALT/SGPT) Alkaline Phosphatase 83 U/L Total Protein 5.7 GM/DL Albumin 1.6 GM/DL Culture Results Microbiology Date/Time Procedure Status Source Growth 05/08/16 11:15 Urine Culture - Final Complete Urine Catheterized Urine Escherichia Coli 05/08/16 11:20 Gram Stain - Final Complete Fluid Peritoneal Fluid 05/08/16 11:20 Body Fluid Culture - Final Complete Fluid Peritoneal Fluid NO GROWTH IN 72 HRS.--AEROBICALLY OR ... 05/08/16 11:25 Aerobic Blood Culture - Preliminary Resulted Blood Peripheral Escherichia Coli 05/08/16 11:25 Anaerobic Blood Culture - Preliminary Resulted Escherichia Coli 05/08/16 11:28 Aerobic Blood Culture - Preliminary Resulted Blood Peripheral Escherichia Coli 05/08/16 11:28 Anaerobic Blood Culture - Preliminary Resulted Escherichia Coli 05/09/16 12:50 Aerobic Blood Culture - Preliminary Resulted Blood Peripheral NO GROWTH IN 1 DAY 05/09/16 12:50 Anaerobic Blood Culture - Preliminary Resulted Blood Peripheral NO GROWTH IN 1 DAY 05/09/16 12:56 Aerobic Blood Culture - Preliminary Resulted Blood Peripheral NO GROWTH IN 1 DAY 05/09/16 12:56 Anaerobic Blood Culture - Preliminary Resulted Blood Peripheral NO GROWTH IN 1 DAY Administered Medications Medications (Trade) Dose Ordered Sig/Melania Route PRN Reason Start Time Stop Time Status Last Admin Dose Admin IV Flush (NS Flush) 2 ml BID FLUSH 05/08/16 21:00 05/11/16 09:00 Lactobacillus Acidophilus 1 tab 1 tab Q12HR PO 05/08/16 21:00 05/11/16 09:12 Sodium Chloride (NS 1000 ml Inj) 1,000 ml @ 84 mls/hr [id number] IV 05/08/16 14:45 Hold 05/09/16 14:35 Pantoprazole Sodium (Protonix Inj) 40 mg Q24H IV PUSH 05/09/16 09:00 05/11/16 09:12 Folic Acid (Folate) 1 mg DAILY PO 05/10/16 09:00 05/11/16 09:12 Spironolactone (Aldactone) 25 mg DAILY PO 05/10/16 11:30 05/11/16 09:12 Furosemide 20 mg 20 mg DAILY PO 05/10/16 11:30 05/11/16 09:12 Cefepime HCl/ Sodium Chloride (Maxipime Inj/NS Inj) 100 ml @ 200 mls/hr Q12HR IV 05/10/16 21:00 05/11/16 09:12 Objective Remarks GENERAL: Elderly male, lying on stretcher, getting ready to go downstairs. SKIN: Warm and dry. HEAD: Normocephalic. EYES: + scleral icterus. No injection or drainage. NECK: Supple, trachea midline. CARDIOVASCULAR: Regular rate and rhythm RESPIRATORY: Breath sounds equal bilaterally. No accessory muscle use. GASTROINTESTINAL: Abdomen soft, non-tender, nondistended. EXTREMITIES: No cyanosis NEUROLOGICAL: awake and alert, normal speech. moving all extremities. Assessment/Plan Problem List: (1) Pancytopenia Status: Acute Plan: --blood counts should improve to baseline once infection is controlled --Due to sepsis. --has baseline anemia and thrombocytopenia due to cirrhosis and splenomegaly. --further drop in blood count likely due to sepsis and possible DIC. --low folate--will start on daily folate replacement --transfuse for hgb<7 or any sign of bleeding. (2) Sepsis Status: Acute Plan: BC +E. Coli --UTI vs SBP --on abx per ID (3) GI bleed Status: Acute Plan: --Recent GI bleed due to esophageal varices. --has no gross GI bleeding at this time. Continue to monitor hemoglobin. (4) Elevated alpha fetoprotein Status: Acute Plan: --monitor --no mass seen on CT ab/pelvis without contrast --U/S Abdomen obtained 05/03 showed hepatomegaly and sludge and a focal echogenic area near the neck of the gallbladder which may represent a non- mobile stone. Assessment 75y/o male with pancytopenia, admitted with altered mental status h/o Diabetes mellitus. Recent GI bleed. Grade 3 esophageal varices. Hypertension. Hyperlipidemia. Cirrhosis. Splenomegaly. Plan 1. monitor CBC 2. continue folate 3. supportive care Attending Statement The exam, history, and the medical decision-making described in the above note were completed with the assistance of the mid-level provider. I reviewed and agree with the findings presented. I attest that I had a [id number] encounter with the patient on the same day, and personally performed and documented my assessment and findings in the medical record. Feeling better. No bleeding reported. Pancytopneia due to cirrhosis/splenomegaly and sepsis/ DIC. Blood counts are stable. Transfuse platelet if any sign of bleeding. AFP significantly elevated suspicious for HCC but no mass noted on CT w/o contrast and recent US. Will need MRI with eovist once his renal function improved. Problem Qualifiers (1) Sepsis: Qualified Code: A41.51 - Sepsis due to Escherichia coli Joanna Jaramillo May 11, 2016 11:18 Adán Diehl MD May 11, 2016 15:25
[2016-05-11 12:07] LABS: HEMATOCRIT 24.5 % (39.0-51.0); MEAN CELL VOLUME 83.9 FL (80.0-100.0); MEAN CORPUSCULAR HEMOGLOBIN 27.2 PG (27.0-34.0); MEAN CORPUSCULAR HGB CONC 32.4 % (32.0-36.0); PLATELET COUNT 34 TH/MM3 (150-450); RED BLOOD COUNT 2.92 MIL/MM3 (4.50-5.90); RED CELL DISTRIBUTION WIDTH 20.6 % (11.6-17.2)
[2016-05-11 12:14] LABS: REVIEW FLAG FINAL
--- NOTE | 2016-05-11 12:52 | HHI.GIFU ---
Subjective Remarks Patient comfortable in bed denies any pain denies any further bleeding complains of having dry mouth and wanting to eat Objective Vitals I&O Vital Signs Date Time Temp Pulse Resp B/P Pulse Ox O2 Delivery O2 Flow Rate FiO2 05/11/16 10:39 97.3 84 18 129/60 99 05/11/16 09:00 86 05/11/16 08:00 97.3 84 20 156/67 95 05/11/16 06:38 97.3 84 18 129/60 99 05/11/16 06:10 97.4 81 20 139/64 99 05/11/16 04:00 97.4 86 20 120/58 99 05/11/16 00:00 97.5 84 20 139/65 95 05/10/16 20:05 79 05/10/16 20:00 97.4 84 16 131/58 98 05/10/16 16:00 97.4 82 18 153/66 97 I/O 05/10/16 05/10/16 05/10/16 05/11/16 05/11/16 05/11/16 07:00 15:00 23:00 07:00 15:00 23:00 Intake Total 240 ml 480 ml 240 ml 0 ml Output Total 650 ml 400 ml 200 ml 400 ml Balance -410 ml 80 ml 40 ml -400 ml Intake Oral 240 ml 480 ml 240 ml 0 ml Output Urine Total 650 ml 400 ml 200 ml 400 ml # Bowel Movements 1 0 0 3 Laboratory Laboratory Tests Test 05/11/16 05/11/16 05/11/16 00:44 07:16 11:44 Blood Bank Comment White Blood Count 2.7 3.0 Red Blood Count 2.83 2.92 Hemoglobin 7.8 7.9 Hematocrit 23.9 24.5 Mean Corpuscular Volume 84.7 83.9 Mean Corpuscular Hemoglobin 27.6 27.2 Mean Corpuscular Hemoglobin 32.6 32.4 Concent Red Cell Distribution Width 21.1 20.6 Platelet Count 37 34 Mean Platelet Volume 8.3 8.6 Neutrophils (%) (Auto) 80.2 Lymphocytes (%) (Auto) 12.2 Monocytes (%) (Auto) 5.5 Eosinophils (%) (Auto) 1.8 Basophils (%) (Auto) 0.3 Neutrophils # (Auto) 2.1 Lymphocytes # (Auto) 0.3 Monocytes # (Auto) 0.1 Eosinophils # (Auto) 0.0 Basophils # (Auto) 0.0 CBC Comment AUTO DIFF Differential Comment AUTO DIFF CONFIRMED Platelet Estimate LOW Platelet Morphology Comment NORMAL Prothrombin Time 14.2 Prothromb Time International 1.3 Ratio Total Bilirubin 1.5 Direct Bilirubin 1.0 Indirect Bilirubin 0.5 Aspartate Amino Transf 38 (AST/SGOT) Alanine Aminotransferase 25 (ALT/SGPT) Alkaline Phosphatase 83 Total Protein 5.7 Albumin 1.6 Date/Time Procedure Status Source Growth 05/09/16 12:56 Aerobic Blood Culture - Preliminary Resulted Blood Peripheral NO GROWTH IN 2 DAYS 05/09/16 12:56 Anaerobic Blood Culture - Preliminary Resulted Blood Peripheral NO GROWTH IN 2 DAYS 05/08/16 11:28 Aerobic Blood Culture - Final Complete Blood Peripheral Escherichia Coli 05/08/16 11:28 Anaerobic Blood Culture - Final Complete Escherichia Coli 05/08/16 11:20 Gram Stain - Final Complete Fluid Peritoneal Fluid 05/08/16 11:20 Body Fluid Culture - Final Complete Fluid Peritoneal Fluid NO GROWTH IN 72 HRS.--AEROBICALLY OR ... 05/08/16 11:15 Urine Culture - Final Complete Urine Catheterized Urine Escherichia Coli 05/08/16 10:00 Gram Stain Received Fluid Peritoneal Fluid Pending 05/08/16 10:00 Body Fluid Culture Received Fluid Peritoneal Fluid Pending 05/08/16 09:47 Aerobic Blood Culture Received Blood Peripheral Pending 05/08/16 09:47 Anaerobic Blood Culture Received Blood Peripheral Pending Imaging Last Impressions Head CT 05/08/16 0947 Signed Impressions: Service Date/Time: Sunday, May 08, 2016 10:14 - CONCLUSION: Normal examination. Itz Barrera MD Chest X-Ray 05/08/16 0947 Signed Impressions: Service Date/Time: Sunday, May 08, 2016 09:45 - CONCLUSION: Normal examination. Itz Barrera MD Abdomen/Pelvis CT 05/08/16 0000 Signed Impressions: Service Date/Time: Sunday, May 08, 2016 10:17 - CONCLUSION: Large amount of ascites in a patient with obvious cirrhosis and splenomegaly. On some of the axial images there is some lower density within the portal vein but without IV contrast I cannot horse show judge its patency. Small nodule left adrenal gland new since 2012. Could be an early spleen or renal shunt. Large amount of ascites without significant bowel wall thickening. Some thickening of the anterior bladder wall. Itz Barrera MD Physical Exam CHEST: Chest is clear to auscultation and percussion. CARDIAC: Regular rate and rhythm with no murmur gallop or rubs. ABDOMEN: Soft, significant distention with ascites but nontender; no hepatosplenomegaly; bowel sounds are present in all four quadrants. EXTREMITIES: No clubbing, cyanosis, 3+ edema lower extremities. SKIN: Normal; no rash; no jaundice. POOL FINISHER: No focal deficits; alert and oriented times 1 Assessment and Plan Plan ASSESSMENT: - GIB, Hematochezia. S/P Recent EGD (05/03/16)---> Grade 2 esophageal varices 3 no active bleed. No banding because of low hgb, low plt, high inr. Pt was discharged to nursing facility and brought back for AMS. He is lethargic, but oriented, although a poor historian. While in ER, he passed small amount of maroon colored blood. Pt cannot provide any information about this. No n/v. No abdominal pain. HH 8.2/25.8. - Anemia, acute blood loss. HH 8.2/25.8. - Liver cirrhosis. Patient denies any history of liver cirrhosis. He was diagnosed during his last admission. He denies any history of heavy alcohol use. We will order the liver workup, since the etiology of this is unclear. He does have advanced liver cirrhosis, with MELD of 16, with coagulopathy, varices, thrombocytopenia, and elevated LFTs with low albumin. - Ascites, large amount. Not tense or painful. Afebrile. Will start spironolactone and lasix. - Coagulopathy/Thrombocytopenia. Plt 38. PT 15.6, INR 1.4. - HTN, Hyperlipidemia, DM, CKD per primary. 05/11/16 no bleeding since yesterday, alpha-fetoprotein significantly elevated, CT of the abdomen is without contrast, platelets low in spite of the fact that he was given platelets and the ascites is large although his eyes and nose show a negative fluid balance also noted is significantly low albumin PLAN: -Endoscopy on hold at this point due to low platelet count and no active bleeding -Monitor labs - Clear liquid diet -Discussed with radiology regarding alpha-fetoprotein and negative findings on CT we will need to pursue either a contrasted CT study or a contrasted MRI but first we will await correction of renal function -Albumin replacement -We will increase the Aldactone to 50 mg twice a day but hold off on Lasix at 20 mg daily - Continue Protonix -Monitor I's and O's - Recommend restarting his beta chelsea when able -Labs in a.m. - Supportive care - Further recommendations to follow based on results of above Eladio Rodriguez MD May 11, 2016 12:52
[2016-05-11] MEDS: ALBUMIN HUMAN 25% 25 GM/100 ML BAGP IV SCH ×2 (13:12→20:48)
[2016-05-11 14:39] LABS: ANA SCREEN NEG (NEG)
[2016-05-11] MEDS: SPIRONOLACTONE 50 MG TAB PO SCH (20:47)
[2016-05-12] VITALS (9 sets, daily range): BP systolic 134–166; BP diastolic 55–80; PULSE 82–91; RESP 16–18; TEMP 97.3–98.4; O2SAT 97–99
[2016-05-12] MEDS: ALBUMIN HUMAN 25% 25 GM/100 ML BAGP IV SCH ×3 (05:18→20:32)
[2016-05-12] MEDS: INSULIN ASPART SUPPLEMENTAL SCALE SQ SCH ×4 (06:05→20:29)
[2016-05-12 08:17] LABS: MEAN CELL VOLUME 84.6 FL (80.0-100.0); MEAN CORPUSCULAR HEMOGLOBIN 27.4 PG (27.0-34.0); MEAN CORPUSCULAR HGB CONC 32.3 % (32.0-36.0); PLATELET COUNT 29 TH/MM3 (150-450); RED BLOOD COUNT 2.47 MIL/MM3 (4.50-5.90); RED CELL DISTRIBUTION WIDTH 20.2 % (11.6-17.2); WHITE BLOOD COUNT 2.2 TH/MM3 (4.0-11.0)
[2016-05-12 08:37] LABS: HEMATOCRIT 20.9 % (39.0-51.0); REVIEW FLAG FINAL
[2016-05-12 08:48] LABS: ALKALINE PHOSPHATASE 69 U/L (45-117); ALT (GPT) 21 U/L (12-78); ANION GAP 12 MEQ/L (5-15); AST (GOT) 26 U/L (15-37); BICARBONATE 16.5 MEQ/L (21.0-32.0); BLOOD UREA NITROGEN 42 MG/DL (7-18); CHLORIDE 110 MEQ/L (98-107); GLOMERULAR FILTRATION RATE 43 ML/MIN (>89); POTASSIUM 3.7 MEQ/L (3.5-5.1); SODIUM (NA) 138 MEQ/L (136-145); TOTAL BILIRUBIN ADULT 1.8 MG/DL (0.2-1.0)
[2016-05-12] MEDS: LACTOBACILLUS ACIDOPHILUS TAB PO SCH ×2 (10:20→20:29)
[2016-05-12] MEDS: SPIRONOLACTONE 50 MG TAB PO SCH ×2 (10:20→20:29)
[2016-05-12] MEDS: FOLIC ACID 1 MG TAB PO SCH (10:20)
[2016-05-12] MEDS: FUROSEMIDE 20 MG TAB PO SCH (10:20)
[2016-05-12] MEDS: SODIUM CHLORIDE 0.9% FLUSH 5 ML FLUSH FLUSH SCH ×2 (10:21→20:31)
[2016-05-12] MEDS: PANTOPRAZOLE SODIUM 40 MG VIAL IV PUSH SCH (10:21)
[2016-05-12] MEDS: CEFEPIME INJ 2,000 MG in SODIUM CHLORIDE 0.9% INJ 100 ML IV SCH ×2 (10:22→20:30)
--- NOTE | 2016-05-12 11:01 | HHI.PR ---
Subjective Remarks Follow-up toxic metabolic encephalopathy/UTI/sepsis/bacteremia 05/09/16-patient seen and examined, alert and oriented to self, date of however somewhat lethargic. Currently afebrile, however for blood culture positive. No GI bleed 05/10/16-patient seen and examined, resting and no acute GI bleed. Currently afebrile. Son by the bedside 05/11/16-patient seen and examined, he was alert and oriented 2. Patient stated this morning that he was still alive. Plan for panendoscopy today. Elevated AFP 05/12/16-patient seen and examined, EGD was not performed yesterday due to anemia but no acute GI bleed. H&H to be dropping. Patient alert and oriented 2. Objective Vitals Vital Signs Date Time Temp Pulse Resp B/P Pulse Ox O2 Delivery O2 Flow Rate FiO2 05/12/16 08:00 97.6 88 18 137/69 98 05/12/16 04:00 97.3 84 18 146/70 98 05/12/16 00:00 97.6 84 18 135/65 99 05/11/16 20:00 97.3 93 18 140/65 97 05/11/16 16:00 97.4 82 20 155/72 97 05/11/16 12:00 97.9 94 20 128/62 95 I/O 05/11/16 05/11/16 05/11/16 05/12/16 05/12/16 05/12/16 07:00 15:00 23:00 07:00 15:00 23:00 Intake Total 0 ml 300 ml 240 ml 340 ml Output Total 400 ml 700 ml 0 ml 550 ml Balance -400 ml -400 ml 240 ml -210 ml Intake Oral 0 ml 0 ml 240 ml 340 ml IV Total 300 ml Output Urine Total 400 ml 700 ml 0 ml 550 ml # Bowel Movements 3 2 1 1 Result Diagram: 05/12/1643 05/12/1643 Imaging Last Impressions Head CT 05/08/16946 Signed Impressions: Service Date/Time: Sunday, May 08, 2016 10:14 - CONCLUSION: Normal examination. Itz Barrera MD Chest X-Ray 05/08/16946 Signed Impressions: Service Date/Time: Sunday, May 08, 2016 09:45 - CONCLUSION: Normal examination. Itz Barrera MD Abdomen/Pelvis CT 05/08/16 0000 Signed Impressions: Service Date/Time: Sunday, May 08, 2016 10:17 - CONCLUSION: Large amount of ascites in a patient with obvious cirrhosis and splenomegaly. On some of the axial images there is some lower density within the portal vein but without IV contrast I cannot federal judge its patency. Small nodule left adrenal gland new since 2012. Could be an early spleen or renal shunt. Large amount of ascites without significant bowel wall thickening. Some thickening of the anterior bladder wall. Itz Barrera MD Objective Remarks GENERAL: NAD SKIN: Warm and dry. HEAD: Normocephalic. EYES: No scleral icterus. No injection or drainage. NECK: Supple, trachea midline. No JVD or lymphadenopathy. CARDIOVASCULAR: Regular rate and rhythm without murmurs, gallops, or rubs. RESPIRATORY: Breath sounds equal bilaterally. No accessory muscle use. GASTROINTESTINAL: Abdomen soft, non-tender,distended. MUSCULOSKELETAL: No cyanosis, or edema. BACK: Nontender without obvious deformity. No CVA tenderness. A/P Problem List: (1) Toxic metabolic encephalopathy ICD Code: G92 Status: Acute (2) SBP (spontaneous bacterial peritonitis) ICD Code: K65.2 Status: Acute (3) UTI (urinary tract infection) ICD Code: N39.0 Status: Acute (4) Sepsis ICD Code: A41.9 Status: Acute (5) Pancytopenia ICD Code: D61.818 Status: Acute (6) Diabetes mellitus ICD Code: E11.9 Status: Acute (7) Diabetes mellitus type 2 in obese ICD Code: E11.9 Status: Acute (8) GI bleed ICD Code: K92.2 Status: Acute (9) Esophageal varices ICD Code: I85.00 Status: Acute Assessment and Plan 75-year-old male with 1-Sepsis/[id number]: Likely source UTI; currently on cefepime pending culture report. Appreciate input from ID 2-Toxic metabolic versus hepatic encephalopathy: Resolved 3-Anemia: will transfuse 2 units PRBC today 05/12/16 4-UTI: Currently on Cefepime pending Urine culture 5-Hyperammonemia: Now resolved 6-Recent history of GI bleed: With recent diagnosis of esophageal varices. No active bleeding, Protonix IV. EGD was not performed yesterday due to anemia. Currently on spironolactone and Lasix secondary to ascites. Elevated AFP. Negative hepatitis profile 7-Chronic kidney disease stage III: Renal indices stable, and avoid all nephrotoxic drugs 8-Hypertension: continue outpatient medication 9-Diabetes type 2: Hold oral hypoglycemic agent, medium sliding scale insulin. 10-DVT prophylaxis: Bilateral SCDs 11-Pancytopenia: Appear to be secondary to current infection vs DIC, appreciate input from hematology, continue with current treatment. Daily folate. Problem Qualifiers (1) Sepsis: Qualified Code: A41.51 - Sepsis due to Escherichia coli Bob Mitchell MD May 12, 2016 11:01
[2016-05-12] MEDS ORDERED: SODIUM CHLOR 0.9% 250 ML INJ 250 ML IV ONE ×2 (11:15→18:00)
[2016-05-12] MEDS ORDERED: diphenhydrAMINE HCL 25 MG CAP PO PRN (11:30)
[2016-05-12] MEDS ORDERED: ACETAMINOPHEN 325 MG TAB PO PRN (11:30)
--- NOTE | 2016-05-12 14:06 | PD.ONC.PN ---
Subjective Subjective Remarks Afebrile overnight. Pt resting in bed in no distress. He denies chest pain, SOB. No vomiting. Objective Data Date Time Temp Pulse Resp B/P Pulse Ox O2 Delivery O2 Flow Rate FiO2 05/12/16 08:00 97.6 88 18 137/69 98 05/12/16 04:00 97.3 84 18 146/70 98 05/12/16 00:00 97.6 84 18 135/65 99 05/11/16 20:00 97.3 93 18 140/65 97 05/11/16 16:00 97.4 82 20 155/72 97 05/12/16 05/12/16 05/12/16 07:00 15:00 23:00 Intake Total 340 ml Output Total 550 ml Balance -210 ml Result Diagram: 05/12/16 0643 05/12/16 0643 Laboratory Results Laboratory Tests Test 05/12/16 05/12/16 06:43 11:08 White Blood Count 2.2 TH/MM3 Red Blood Count 2.47 MIL/MM3 Hemoglobin 6.8 GM/DL Hematocrit 20.9 % Mean Corpuscular Volume 84.6 FL Mean Corpuscular Hemoglobin 27.4 PG Mean Corpuscular Hemoglobin 32.3 % Concent Red Cell Distribution Width 20.2 % Platelet Count 29 TH/MM3 Mean Platelet Volume 9.2 FL Sodium Level 138 MEQ/L Potassium Level 3.7 MEQ/L Chloride Level 110 MEQ/L Carbon Dioxide Level 16.5 MEQ/L Anion Gap 12 MEQ/L Blood Urea Nitrogen 42 MG/DL Creatinine 1.60 MG/DL Estimat Glomerular Filtration 43 ML/MIN Rate Random Glucose 207 MG/DL Calcium Level 7.8 MG/DL Total Bilirubin 1.8 MG/DL Aspartate Amino Transf 26 U/L (AST/SGOT) Alanine Aminotransferase 21 U/L (ALT/SGPT) Alkaline Phosphatase 69 U/L Total Protein 5.8 GM/DL Albumin 2.6 GM/DL Blood Type O POSITIVE Crossmatch Leukocyte-Reduced Red Blood Cells Blood Bank Comment Administered Medications Medications (Trade) Dose Ordered Sig/Melania Route PRN Reason Start Time Stop Time Status Last Admin Dose Admin IV Flush (NS Flush) 2 ml BID FLUSH 05/08/16 21:00 05/12/16 10:21 Lactobacillus Acidophilus 1 tab 1 tab Q12HR PO 05/08/16 21:00 05/12/16 10:20 Sodium Chloride (NS 1000 ml Inj) 1,000 ml @ 84 mls/hr [id number] IV 05/08/16 14:45 Hold 05/09/16 14:35 Pantoprazole Sodium (Protonix Inj) 40 mg Q24H IV PUSH 05/09/16 09:00 05/12/16 10:21 Folic Acid (Folate) 1 mg DAILY PO 05/10/16 09:00 05/12/16 10:20 Furosemide 20 mg 20 mg DAILY PO 05/10/16 11:30 05/12/16 10:20 Cefepime HCl/ Sodium Chloride (Maxipime Inj/NS Inj) 100 ml @ 200 mls/hr Q12HR IV 05/10/16 21:00 05/12/16 10:22 Spironolactone (Aldactone) 50 mg BID PO 05/11/16 21:00 05/12/16 10:20 Albumin Human (Albumin 25% Inj) 25 gm Q8H IV 05/11/16 12:45 05/14/16 12:44 05/12/16 05:18 Objective Remarks GENERAL: Elderly male resting in bed in no distress. SKIN: Warm and dry. HEAD: Normocephalic. EYES: No injection or drainage. NECK: Supple, trachea midline. CARDIOVASCULAR: +S1/S2. RESPIRATORY: Breath sounds equal bilaterally. No accessory muscle use. GASTROINTESTINAL: Abdomen soft, non-tender, nondistended. EXTREMITIES: No cyanosis. Trace edema to BLE. NEUROLOGICAL: Awake and alert, normal speech. moving all extremities. Assessment/Plan Problem List: (1) Pancytopenia Status: Acute Plan: --blood counts should improve to baseline once infection is controlled --Due to sepsis. --has baseline anemia and thrombocytopenia due to cirrhosis and splenomegaly. --further drop in blood count likely due to sepsis and possible DIC. --low folate--will start on daily folate replacement --transfuse for hgb<7 or any sign of bleeding. (2) Sepsis Status: Acute Plan: BC +E. Coli --UTI vs SBP --on abx per ID (3) GI bleed Status: Acute Plan: -- No vomiting, however pt has had drop in Hgb to 6.8. --Recent GI bleed due to esophageal varices. --has no gross GI bleeding at this time. Continue to monitor hemoglobin. (4) Elevated alpha fetoprotein Status: Acute Plan: --? Hepatocellular carcinoma --no mass seen on CT ab/pelvis without contrast --U/S Abdomen obtained 05/03 showed hepatomegaly and sludge and a focal echogenic area near the neck of the gallbladder which may represent a non- mobile stone. Assessment 75y/o male with pancytopenia, admitted with altered mental status h/o Diabetes mellitus. Recent GI bleed. Grade 3 esophageal varices. Hypertension. Hyperlipidemia. Cirrhosis. Splenomegaly. Plan 1. Transfuse 2 units PRBC's today. 2. Monitor CBC 3. There is a possibility of hepatocellular carcinoma. Pt with elevated AFP. Will get MRI with contrast once renal function improves. Problem Qualifiers (1) Sepsis: Qualified Code: A41.51 - Sepsis due to Escherichia coli Sheridan Walsh May 12, 2016 14:06 Santos Calero MD May 13, 2016 13:07
--- NOTE | 2016-05-12 17:48 | HHI.GIFU ---
Subjective Remarks Resting in bed. Denies any obvious active bleeding. Denies abdominal pain. C/ O generalized weakness. (Lia Akhtar) Objective Vitals I&O Vital Signs Date Time Temp Pulse Resp B/P Pulse Ox O2 Delivery O2 Flow Rate FiO2 05/12/16 17:33 98.4 88 16 165/78 97 05/12/16 12:00 97.6 91 18 155/66 98 05/12/16 08:00 97.6 88 18 137/69 98 05/12/16 04:00 97.3 84 18 146/70 98 05/12/16 00:00 97.6 84 18 135/65 99 05/11/16 20:00 97.3 93 18 140/65 97 I/O 05/11/16 05/11/16 05/11/16 05/12/16 05/12/16 05/12/16 07:00 15:00 23:00 07:00 15:00 23:00 Intake Total 0 ml 300 ml 240 ml 340 ml 600 ml Output Total 400 ml 700 ml 0 ml 550 ml 675 ml Balance -400 ml -400 ml 240 ml -210 ml -75 ml Intake Oral 0 ml 0 ml 240 ml 340 ml 600 ml IV Total 300 ml Output Urine Total 400 ml 700 ml 0 ml 550 ml 675 ml # Bowel Movements 3 2 1 1 1 Laboratory Laboratory Tests Test 05/12/16 05/12/16 06:43 11:08 White Blood Count 2.2 Red Blood Count 2.47 Hemoglobin 6.8 Hematocrit 20.9 Mean Corpuscular Volume 84.6 Mean Corpuscular Hemoglobin 27.4 Mean Corpuscular Hemoglobin 32.3 Concent Red Cell Distribution Width 20.2 Platelet Count 29 Mean Platelet Volume 9.2 Sodium Level 138 Potassium Level 3.7 Chloride Level 110 Carbon Dioxide Level 16.5 Anion Gap 12 Blood Urea Nitrogen 42 Creatinine 1.60 Estimat Glomerular Filtration 43 Rate Random Glucose 207 Calcium Level 7.8 Total Bilirubin 1.8 Aspartate Amino Transf 26 (AST/SGOT) Alanine Aminotransferase 21 (ALT/SGPT) Alkaline Phosphatase 69 Total Protein 5.8 Albumin 2.6 Blood Type O POSITIVE Crossmatch Leukocyte-Reduced Red Blood Cells Blood Bank Comment Date/Time Procedure Status Source Growth 05/09/16 12:56 Aerobic Blood Culture - Preliminary Resulted Blood Peripheral NO GROWTH IN 3 DAYS 05/09/16 12:56 Anaerobic Blood Culture - Preliminary Resulted Blood Peripheral NO GROWTH IN 3 DAYS 05/08/16 11:28 Aerobic Blood Culture - Final Complete Blood Peripheral Escherichia Coli 05/08/16 11:28 Anaerobic Blood Culture - Final Complete Escherichia Coli 05/08/16 11:20 Gram Stain - Final Complete Fluid Peritoneal Fluid 05/08/16 11:20 Body Fluid Culture - Final Complete Fluid Peritoneal Fluid NO GROWTH IN 72 HRS.--AEROBICALLY OR ... 05/08/16 11:15 Urine Culture - Final Complete Urine Catheterized Urine Escherichia Coli 05/08/16 10:00 Gram Stain Received Fluid Peritoneal Fluid Pending 05/08/16 10:00 Body Fluid Culture Received Fluid Peritoneal Fluid Pending 05/08/16 09:47 Aerobic Blood Culture Received Blood Peripheral Pending 05/08/16 09:47 Anaerobic Blood Culture Received Blood Peripheral Pending Imaging Last Impressions Head CT 05/08/1647 Signed Impressions: Service Date/Time: Sunday, May 08, 2016 10:14 - CONCLUSION: Normal examination. Itz Barrera MD Chest X-Ray 05/08/1647 Signed Impressions: Service Date/Time: Sunday, May 08, 2016 09:45 - CONCLUSION: Normal examination. Itz Barrera MD Abdomen/Pelvis CT 05/08/16 0000 Signed Impressions: Service Date/Time: Sunday, May 08, 2016 10:17 - CONCLUSION: Large amount of ascites in a patient with obvious cirrhosis and splenomegaly. On some of the axial images there is some lower density within the portal vein but without IV contrast I cannot railway signal operator its patency. Small nodule left adrenal gland new since 2012. Could be an early spleen or renal shunt. Large amount of ascites without significant bowel wall thickening. Some thickening of the anterior bladder wall. Itz Barrera MD Physical Exam CHEST: CTA CARDIAC: RRR ABDOMEN: Soft, significant distention with ascites but nontender; no hepatosplenomegaly; bowel sounds are present in all four quadrants. EXTREMITIES: No clubbing, cyanosis,2+ edema lower extremities. SKIN: Normal; no rash; no jaundice. LPN RN: No focal deficits; alert and oriented times 1 (Lia Akhtar) Assessment and Plan Plan ASSESSMENT: - GIB, Hematochezia. S/P Recent EGD (05/03/16)---> Grade 2 esophageal varices 3 no active bleed. No banding because of low hgb, low plt, high inr. Pt was discharged to nursing facility and brought back for AMS. He is lethargic, but oriented, although a poor historian. While in ER, he passed small amount of maroon colored blood. Pt cannot provide any information about this. No n/v. No abdominal pain. Endoscopy on hold secondary to low platelets. Did have drop in hgb although he has not had any obvious visible bleeding. HH 6.8/20.9. Has had 1/2 PRBC. - Anemia, acute blood loss. HH 6.8/20.9. S/P #1/2 PRBC. - Liver cirrhosis. Patient denies any history of liver cirrhosis. He was diagnosed during his last admission. He denies any history of heavy alcohol use. We will order the liver workup, since the etiology of this is unclear. He does have advanced liver cirrhosis, with MELD of 16, with coagulopathy, varices, thrombocytopenia, and elevated LFTs with low albumin. AFP significantly elevated at 2822.1. Will need CT vs. MRI once renal function allows. - Ascites, large amount. Not tense or painful. Afebrile. Albumin, Lasix, Spironolactone. - Coagulopathy/Thrombocytopenia. Plt 298. PT 14.2, INR 1.3. - HTN, Hyperlipidemia, DM, CKD per primary. PLAN: - Possible EGD with band ligation and colonoscopy on Saturday - Obtain consents - Clear liquids - NPO after MN Saturday - Platelet pack Saturday - 1/2 Gallon of Golytely tomorrow afternoon - PPI - Albumin - Lasix - Spironolactone - Monitor HH - Transfuse as necessary - Strict I/O - Monitor CBC, BMP, PT/INR - Will need to pursue either a contrasted CT study or a contrasted MRI once renal function corrected - Recommend restarting his beta chelsea when able - Supportive care - Further recommendations to follow based on results of above - Pt seen and examined by Dr. Rodriguez and myself and this note is written on his behalf (Lia Akhtar) Physician Comments Patient seen and examined Agree with above Continue with current supportive care Monitor labs (Eladio Rodriguez MD) Lia Akhtar May 12, 2016 17:48 Eladio Rodriguez MD May 12, 2016 20:52
[2016-05-13] VITALS (13 sets, daily range): BP systolic 148–178; BP diastolic 69–86; PULSE 81–87; RESP 16–22; TEMP 97.3–98.5; O2SAT 95–100
[2016-05-13] MEDS: ALBUMIN HUMAN 25% 25 GM/100 ML BAGP IV SCH ×3 (04:55→21:36)
[2016-05-13] MEDS: INSULIN ASPART SUPPLEMENTAL SCALE SQ SCH ×4 (04:55→21:00)
[2016-05-13] MEDS: SODIUM CHLORIDE 0.9% FLUSH 5 ML FLUSH FLUSH SCH ×2 (08:22→21:36)
[2016-05-13] MEDS: FOLIC ACID 1 MG TAB PO SCH (08:22)
[2016-05-13] MEDS: SPIRONOLACTONE 50 MG TAB PO SCH ×2 (08:22→21:35)
[2016-05-13] MEDS: CEFEPIME INJ 2,000 MG in SODIUM CHLORIDE 0.9% INJ 100 ML IV SCH ×2 (08:22→21:35)
[2016-05-13] MEDS: PANTOPRAZOLE SODIUM 40 MG VIAL IV PUSH SCH (08:22)
[2016-05-13] MEDS: LACTOBACILLUS ACIDOPHILUS TAB PO SCH ×2 (08:22→21:36)
[2016-05-13] MEDS: FUROSEMIDE 20 MG TAB PO SCH (08:22)
[2016-05-13 09:10] LABS: AUTOMATED NEUTROPHIL # 2.4 TH/MM3 (1.8-7.7); BASOPHIL % 0.5 % (0.0-2.0); EOSINOPHIL % 1.2 % (0.0-4.0); HEMATOCRIT 26.8 % (39.0-51.0); LYMPH % 9.7 % (9.0-44.0); LYMPHOCYTE # 0.3 TH/MM3 (1.0-4.8); MEAN CELL VOLUME 84.5 FL (80.0-100.0); MEAN CORPUSCULAR HEMOGLOBIN 27.7 PG (27.0-34.0); MEAN CORPUSCULAR HGB CONC 32.8 % (32.0-36.0); MONO % 10.1 % (0.0-8.0); NEUT % 78.5 % (16.0-70.0); PLATELET COUNT 26 TH/MM3 (150-450); RED BLOOD COUNT 3.18 MIL/MM3 (4.50-5.90); RED CELL DISTRIBUTION WIDTH 18.8 % (11.6-17.2)
[2016-05-13 09:13] LABS: HEMO FLAGS AUTO DIFF
[2016-05-13 09:28] LABS: BICARBONATE 17.8 MEQ/L (21.0-32.0); POTASSIUM 3.3 MEQ/L (3.5-5.1)
[2016-05-13 09:59] LABS: PLATELET ESTIMATE SMEAR LOW (NORMAL); PLATELET MORPHOLOGY NORMAL (NORMAL)
[2016-05-13 10:00] LABS: SCAN/DIFF AUTO DIFF CONFIRMED
--- NOTE | 2016-05-13 10:27 | HHI.PR ---
Subjective Remarks Follow-up toxic metabolic encephalopathy/UTI/sepsis/bacteremia 05/09/16-patient seen and examined, alert and oriented to self, date of however somewhat lethargic. Currently afebrile, however for blood culture positive. No GI bleed 05/10/16-patient seen and examined, resting and no acute GI bleed. Currently afebrile. Son by the bedside 05/11/16-patient seen and examined, he was alert and oriented 2. Patient stated this morning that he was still alive. Plan for panendoscopy today. Elevated AFP 05/12/16-patient seen and examined, EGD was not performed yesterday due to anemia but no acute GI bleed. H&H to be dropping. Patient alert and oriented 2. 05/13/16-patient seen and examined, he was transfused 2 units packed red blood cell yesterday. Patient is alert however confused this morning only oriented to self. Restrains to upper extremities Objective Vitals Vital Signs Date Time Temp Pulse Resp B/P Pulse Ox O2 Delivery O2 Flow Rate FiO2 05/13/16 08:28 97.6 81 22 157/73 96 05/13/16 04:00 97.6 83 18 165/75 95 05/13/16 00:50 97.9 85 20 98 05/13/16 00:42 97.3 85 20 148/69 98 05/13/16 00:00 98.5 87 18 151/79 100 05/12/16 20:10 82 05/12/16 20:00 97.8 82 18 166/80 97 05/12/16 18:00 98.2 88 18 134/55 97 05/12/16 17:33 98.4 88 16 165/78 97 05/12/16 16:00 98.4 87 18 165/78 97 05/12/16 12:00 97.6 91 18 155/66 98 I/O 05/12/16 05/12/16 05/12/16 05/13/16 05/13/16 05/13/16 07:00 15:00 23:00 07:00 15:00 23:00 Intake Total 340 ml 600 ml 240 ml 100 ml Output Total 550 ml 675 ml 0 ml 625 ml Balance -210 ml -75 ml 240 ml -525 ml Intake Oral 340 ml 600 ml 240 ml 100 ml Output Urine Total 550 ml 675 ml 0 ml 625 ml # Bowel Movements 1 1 0 1 Result Diagram: 05/13/16 0805 05/13/1605 Imaging Last Impressions Head CT 05/08/1647 Signed Impressions: Service Date/Time: Sunday, May 08, 2016 10:14 - CONCLUSION: Normal examination. Itz Barrera MD Chest X-Ray 05/08/1647 Signed Impressions: Service Date/Time: Sunday, May 08, 2016 09:45 - CONCLUSION: Normal examination. Itz Barrera MD Abdomen/Pelvis CT 05/08/16 0000 Signed Impressions: Service Date/Time: Sunday, May 08, 2016 10:17 - CONCLUSION: Large amount of ascites in a patient with obvious cirrhosis and splenomegaly. On some of the axial images there is some lower density within the portal vein but without IV contrast I cannot guest services attendant its patency. Small nodule left adrenal gland new since 2012. Could be an early spleen or renal shunt. Large amount of ascites without significant bowel wall thickening. Some thickening of the anterior bladder wall. Itz Barrera MD Objective Remarks GENERAL: NAD with restrains to upper extremities SKIN: Warm and dry. HEAD: Normocephalic. EYES: No scleral icterus. No injection or drainage. NECK: Supple, trachea midline. No JVD or lymphadenopathy. CARDIOVASCULAR: Regular rate and rhythm without murmurs, gallops, or rubs. RESPIRATORY: Breath sounds equal bilaterally. No accessory muscle use. GASTROINTESTINAL: Abdomen soft, non-tender,distended. MUSCULOSKELETAL: No cyanosis, or edema. BACK: Nontender without obvious deformity. No CVA tenderness. A/P Problem List: (1) Toxic metabolic encephalopathy ICD Code: G92 Status: Acute (2) SBP (spontaneous bacterial peritonitis) ICD Code: K65.2 Status: Acute (3) UTI (urinary tract infection) ICD Code: N39.0 Status: Acute (4) Sepsis ICD Code: A41.9 Status: Acute (5) Pancytopenia ICD Code: D61.818 Status: Acute (6) Diabetes mellitus ICD Code: E11.9 Status: Acute (7) Diabetes mellitus type 2 in obese ICD Code: E11.9 Status: Acute (8) GI bleed ICD Code: K92.2 Status: Acute (9) Esophageal varices ICD Code: I85.00 Status: Acute (10) Elevated AFP ICD Code: R77.2 Status: Acute Assessment and Plan 75-year-old male with 1-Sepsis/uguufszdti-ytiy-iqrhkvdu: Likely source UTI; currently on cefepime pending culture report. Appreciate input from ID 2-Toxic metabolic versus hepatic encephalopathy: Check ammonia 05/13/16 and treat accordingly 3-Anemia of chronic GIB: Transfused 2 units PRBC 05/12/16; H&H currently stable 4-UTI: Currently on Cefepime pending Urine culture 5-Hyperammonemia: Now resolved however due to increased confusion, check ammonia level and resume lactulose accordingly 6-Recent history of GI bleed: With recent diagnosis of esophageal varices. No active bleeding, Protonix IV. EGD was not performed 05/11/16 due to anemia. Currently on spironolactone and Lasix secondary to ascites/cirrhosis. Elevated AFP concerning for hepatocellular carcinoma, therefore will check abdominal MRI 05/14/16. Negative hepatitis profile 7-Chronic kidney disease stage III: Renal indices improving, and avoid all nephrotoxic drugs 8-Hypertension: continue outpatient medication 9-Diabetes type 2: Hold oral hypoglycemic agent, medium sliding scale insulin. 10-DVT prophylaxis: Bilateral SCDs 11-Pancytopenia: Appear to be secondary to current infection vs DIC, appreciate input from hematology, continue with current treatment. Daily folate. Problem Qualifiers (1) Sepsis: Qualified Code: A41.51 - Sepsis due to Escherichia coli Bob Mitchell MD May 13, 2016 10:27
[2016-05-13] MEDS ORDERED: POTASSIUM CHLORIDE 10 MEQ CONTROLLED RELEASE TAB PO ONE (10:30)
[2016-05-13] MEDS: ACETAMINOPHEN 325 MG TAB PO PRN (12:13)
--- NOTE | 2016-05-13 13:04 | HHI.GIFU ---
Subjective Remarks Resting in bed. No active bleeding. Denies any nausea vomiting or abdominal pain. Son is at the bedside. Discussed plan for transfusion of platelets today and plan for EGD with possible band ligation and colonoscopy in a.m. patient and his son are agreeable. (Lia Akhtar) Objective Vitals I&O Vital Signs Date Time Temp Pulse Resp B/P Pulse Ox O2 Delivery O2 Flow Rate FiO2 05/13/16 12:02 98.0 84 22 175/86 98 05/13/16 08:28 97.6 81 22 157/73 96 05/13/16 04:00 97.6 83 18 165/75 95 05/13/16 00:50 97.9 85 20 98 05/13/16 00:42 97.3 85 20 148/69 98 05/13/16 00:00 98.5 87 18 151/79 100 05/12/16 20:10 82 05/12/16 20:00 97.8 82 18 166/80 97 05/12/16 18:00 98.2 88 18 134/55 97 05/12/16 17:33 98.4 88 16 165/78 97 05/12/16 16:00 98.4 87 18 165/78 97 I/O 05/12/16 05/12/16 05/12/16 05/13/16 05/13/16 05/13/16 07:00 15:00 23:00 07:00 15:00 23:00 Intake Total 340 ml 600 ml 240 ml 100 ml Output Total 550 ml 675 ml 0 ml 625 ml Balance -210 ml -75 ml 240 ml -525 ml Intake Oral 340 ml 600 ml 240 ml 100 ml Output Urine Total 550 ml 675 ml 0 ml 625 ml # Bowel Movements 1 1 0 1 Laboratory Laboratory Tests Test 05/13/16 05/13/16 00:42 08:05 Blood Bank Comment White Blood Count 3.0 Red Blood Count 3.18 Hemoglobin 8.8 Hematocrit 26.8 Mean Corpuscular Volume 84.5 Mean Corpuscular Hemoglobin 27.7 Mean Corpuscular Hemoglobin 32.8 Concent Red Cell Distribution Width 18.8 Platelet Count 26 Mean Platelet Volume 8.8 Neutrophils (%) (Auto) 78.5 Lymphocytes (%) (Auto) 9.7 Monocytes (%) (Auto) 10.1 Eosinophils (%) (Auto) 1.2 Basophils (%) (Auto) 0.5 Neutrophils # (Auto) 2.4 Lymphocytes # (Auto) 0.3 Monocytes # (Auto) 0.3 Eosinophils # (Auto) 0.0 Basophils # (Auto) 0.0 CBC Comment AUTO DIFF Differential Comment AUTO DIFF CONFIRMED Platelet Estimate LOW Platelet Morphology Comment NORMAL Sodium Level 139 Potassium Level 3.3 Chloride Level 108 Carbon Dioxide Level 17.8 Anion Gap 13 Blood Urea Nitrogen 37 Creatinine 1.58 Estimat Glomerular Filtration 43 Rate Random Glucose 159 Calcium Level 7.8 Date/Time Procedure Status Source Growth 05/09/16 12:56 Aerobic Blood Culture - Preliminary Resulted Blood Peripheral NO GROWTH IN 4 DAYS 05/09/16 12:56 Anaerobic Blood Culture - Preliminary Resulted Blood Peripheral NO GROWTH IN 4 DAYS Imaging Last Impressions Head CT 05/08/16 0947 Signed Impressions: Service Date/Time: Sunday, May 08, 2016 10:14 - CONCLUSION: Normal examination. Itz Barrera MD Chest X-Ray 05/08/16 0947 Signed Impressions: Service Date/Time: Sunday, May 08, 2016 09:45 - CONCLUSION: Normal examination. Itz Barrera MD Abdomen/Pelvis CT 05/08/16 0000 Signed Impressions: Service Date/Time: Sunday, May 08, 2016 10:17 - CONCLUSION: Large amount of ascites in a patient with obvious cirrhosis and splenomegaly. On some of the axial images there is some lower density within the portal vein but without IV contrast I cannot metropolitan editor its patency. Small nodule left adrenal gland new since 2012. Could be an early spleen or renal shunt. Large amount of ascites without significant bowel wall thickening. Some thickening of the anterior bladder wall. Itz Barrera MD Physical Exam CHEST: CTA CARDIAC: RRR ABDOMEN: Soft, significant distention with ascites but nontender; no hepatosplenomegaly; bowel sounds are present in all four quadrants. EXTREMITIES: No clubbing, cyanosis,2+ edema lower extremities. SKIN: Normal; no rash; no jaundice. BILINGUAL TEACHER ASSISTANT: No focal deficits; alert and oriented times 1 (Lia Akhtar) Assessment and Plan Plan ASSESSMENT: - GIB, Hematochezia. S/P Recent EGD (05/03/16)---> Grade 2 esophageal varices 3 no active bleed. No banding because of low hgb, low plt, high inr. Pt was discharged to nursing facility and brought back for AMS. He is lethargic, but oriented, although a poor historian. While in ER, he passed small amount of maroon colored blood. Pt cannot provide any information about this. No n/v. No abdominal pain. Plan is to give platelets this afternoon and plan for EGD with possible band ligation and colonoscopy in am. HH 8.8/26.8. - Anemia, acute blood loss. HH 8.8/26.8. S/P 2 PRBC. - Liver cirrhosis. Patient denies any history of liver cirrhosis. He was diagnosed during his last admission. He denies any history of heavy alcohol use. We will order the liver workup, since the etiology of this is unclear. He does have advanced liver cirrhosis, with MELD of 16, with coagulopathy, varices, thrombocytopenia, and elevated LFTs with low albumin. AFP significantly elevated at 2822.1. Will need CT vs. MRI once renal function allows. Creat. stjill 1.58. - Ascites, large amount. Not tense or painful. Afebrile. Albumin, Lasix, Spironolactone. Negative balance although continues to have significant ascites. - Coagulopathy/Thrombocytopenia. Plt26. PT 14.2, INR 1.3. - HTN, Hyperlipidemia, DM, CKD per primary. PLAN: - Possible EGD with band ligation and colonoscopy on Saturday - Obtain consents - Clear liquids - NPO after MN Saturday - Platelet pack Saturday - 1/2 Gallon of Golytely tomorrow afternoon - PPI - Albumin - Lasix - Spironolactone - Monitor HH - Transfuse as necessary - Strict I/O - Monitor CBC, BMP, PT/INR - Will need to pursue either a contrasted CT study or a contrasted MRI once renal function corrected - Recommend restarting his beta chelsea when able - Supportive care - Further recommendations to follow based on results of above - Pt seen and examined by Dr. Rodriguez and myself and this note is written on his behalf (Lia Akhtar) Physician Comments Patient Seen and examined Agree with above Continue with current supportive care Monitor labs Renal function improving ever so slowly we will rediscuss the case with radiology for evaluation for hepato-cellular carcinoma Plan EGD colonoscopy tomorrow Overall prognosis seems to be poor (Eladio Rodriguez MD) Lia Akhtar May 13, 2016 13:04 Eladio Rodriguez MD May 13, 2016 18:27
[2016-05-13] MEDS ORDERED: PEG (High)/E-LYTE SOLN 4000 ML BTL PO ONE (16:00)
[2016-05-14] VITALS (10 sets, daily range): BP systolic 148–183; BP diastolic 72–85; PULSE 72–88; RESP 16–20; TEMP 97.2–98.8; O2SAT 96–98
[2016-05-14] MEDS ORDERED: METOPROLOL TARTRATE 25 MG TAB PO ONE (01:00)
[2016-05-14 03:52] LABS: MITOCHONDRIAL ABS 24.3 U (())
[2016-05-14] MEDS: INSULIN ASPART SUPPLEMENTAL SCALE SQ SCH ×4 (05:39→21:00)
[2016-05-14] MEDS: ALBUMIN HUMAN 25% 25 GM/100 ML BAGP IV SCH (05:39)
[2016-05-14] MEDS ORDERED: cloNIDine HCL 0.1 MG TAB PO ONE (06:45)
[2016-05-14 07:13] LABS: AUTOMATED NEUTROPHIL # 2.3 TH/MM3 (1.8-7.7); BASOPHIL % 0.5 % (0.0-2.0); EOSINOPHIL % 1.5 % (0.0-4.0); HEMATOCRIT 27.6 % (39.0-51.0); LYMPH % 9.9 % (9.0-44.0); LYMPHOCYTE # 0.3 TH/MM3 (1.0-4.8); MEAN CELL VOLUME 84.8 FL (80.0-100.0); MEAN CORPUSCULAR HEMOGLOBIN 27.9 PG (27.0-34.0); MEAN CORPUSCULAR HGB CONC 32.9 % (32.0-36.0); MONO % 9.7 % (0.0-8.0); NEUT % 78.4 % (16.0-70.0); PLATELET COUNT 27 TH/MM3 (150-450); RED BLOOD COUNT 3.26 MIL/MM3 (4.50-5.90); RED CELL DISTRIBUTION WIDTH 19.4 % (11.6-17.2)
[2016-05-14 07:15] LABS: HEMO FLAGS AUTO DIFF
[2016-05-14 07:22] LABS: INTERNATIONAL NORMALIZED RATIO 1.6 RATIO; PROTHROMBIN TIME - PATIENT 18.5 SEC (9.8-11.6)
[2016-05-14 07:38] LABS: BICARBONATE 18.5 MEQ/L (21.0-32.0); POTASSIUM 3.5 MEQ/L (3.5-5.1)
[2016-05-14 08:02] LABS: KERATOCYTES OCC (NORMAL); PLATELET ESTIMATE SMEAR LOW (NORMAL); PLATELET MORPHOLOGY NORMAL (NORMAL); SCAN/DIFF AUTO DIFF CONFIRMED
[2016-05-14] MEDS: FOLIC ACID 1 MG TAB PO SCH ×2 (08:39→10:18)
[2016-05-14] MEDS: SPIRONOLACTONE 50 MG TAB PO SCH ×3 (08:39→21:10)
[2016-05-14] MEDS: LACTOBACILLUS ACIDOPHILUS TAB PO SCH ×3 (08:39→21:10)
[2016-05-14] MEDS: FUROSEMIDE 20 MG TAB PO SCH ×2 (08:39→10:23)
[2016-05-14] MEDS: CEFEPIME INJ 2,000 MG in SODIUM CHLORIDE 0.9% INJ 100 ML IV SCH (08:40)
[2016-05-14] MEDS: PANTOPRAZOLE SODIUM 40 MG VIAL IV PUSH SCH (08:40)
[2016-05-14] MEDS: SODIUM CHLORIDE 0.9% FLUSH 5 ML FLUSH FLUSH SCH ×2 (08:41→21:10)
[2016-05-14 08:45] LABS: APTT (PATIENT) 46.7 SEC (24.3-30.1)
--- NOTE | 2016-05-14 11:14 | HHI.GIFU ---
Subjective Remarks Resting in bed. No active bleeding. Only was able to take about 1/3 of the Golytely. Received platelets yesterday, but Plt count still only 27,000. Lethargic today. Objective Vitals I&O Vital Signs Date Time Temp Pulse Resp B/P Pulse Ox O2 Delivery O2 Flow Rate FiO2 05/14/16 08:01 98.7 79 20 183/85 96 05/14/16 06:41 80 175/80 05/14/16 04:48 97.4 76 16 181/78 96 05/14/16 00:00 98.0 88 18 178/85 98 05/13/16 21:00 165/75 Automatic Cuff 05/13/16 20:20 Room Air 05/13/16 20:20 81 05/13/16 20:00 97.5 84 16 171/84 97 05/13/16 15:23 97.4 85 20 178/82 98 05/13/16 15:23 97.4 85 20 178/82 98 05/13/16 15:08 97.7 82 20 174/81 98 05/13/16 14:59 97.9 84 20 173/77 98 05/13/16 12:02 98.0 84 22 175/86 98 I/O 05/13/16 05/13/16 05/13/16 05/14/16 05/14/16 05/14/16 07:00 15:00 23:00 07:00 15:00 23:00 Intake Total 200 ml 360 ml 580 ml 200 ml Output Total 625 ml 700 ml 450 ml 200 ml Balance -425 ml -340 ml 130 ml 0 ml Intake Oral 100 ml 360 ml 480 ml IV Total 100 ml 100 ml 200 ml Output Urine Total 625 ml 700 ml 450 ml 200 ml # Bowel Movements 1 0 2 0 Laboratory Laboratory Tests Test 05/13/16 05/14/16 14:31 06:59 Ammonia 20 White Blood Count 3.0 Red Blood Count 3.26 Hemoglobin 9.1 Hematocrit 27.6 Mean Corpuscular Volume 84.8 Mean Corpuscular Hemoglobin 27.9 Mean Corpuscular Hemoglobin 32.9 Concent Red Cell Distribution Width 19.4 Platelet Count 27 Mean Platelet Volume 9.0 Neutrophils (%) (Auto) 78.4 Lymphocytes (%) (Auto) 9.9 Monocytes (%) (Auto) 9.7 Eosinophils (%) (Auto) 1.5 Basophils (%) (Auto) 0.5 Neutrophils # (Auto) 2.3 Lymphocytes # (Auto) 0.3 Monocytes # (Auto) 0.3 Eosinophils # (Auto) 0.0 Basophils # (Auto) 0.0 CBC Comment AUTO DIFF Differential Comment AUTO DIFF CONFIRMED Platelet Estimate LOW Platelet Morphology Comment NORMAL Keratocytes OCC Prothrombin Time 18.5 Prothromb Time International 1.6 Ratio Activated Partial 46.7 Thromboplast Time Fibrinogen 120 Sodium Level 141 Potassium Level 3.5 Chloride Level 110 Carbon Dioxide Level 18.5 Anion Gap 13 Blood Urea Nitrogen 33 Creatinine 1.49 Estimat Glomerular Filtration 46 Rate Random Glucose 131 Calcium Level 8.2 Date/Time Procedure Status Source Growth 05/09/16 12:56 Aerobic Blood Culture - Preliminary Resulted Blood Peripheral NO GROWTH IN 4 DAYS 05/09/16 12:56 Anaerobic Blood Culture - Preliminary Resulted Blood Peripheral NO GROWTH IN 4 DAYS Imaging Last Impressions Head CT 05/08/16 0947 Signed Impressions: Service Date/Time: Sunday, May 08, 2016 10:14 - CONCLUSION: Normal examination. Itz Barrera MD Chest X-Ray 05/08/1647 Signed Impressions: Service Date/Time: Sunday, May 08, 2016 09:45 - CONCLUSION: Normal examination. Itz Barrera MD Abdomen/Pelvis CT 05/08/16 0000 Signed Impressions: Service Date/Time: Sunday, May 08, 2016 10:17 - CONCLUSION: Large amount of ascites in a patient with obvious cirrhosis and splenomegaly. On some of the axial images there is some lower density within the portal vein but without IV contrast I cannot police judge its patency. Small nodule left adrenal gland new since 2012. Could be an early spleen or renal shunt. Large amount of ascites without significant bowel wall thickening. Some thickening of the anterior bladder wall. Itz Barrera MD Physical Exam CHEST: CTA CARDIAC: RRR ABDOMEN: Soft, significant distention with ascites but nontender; no hepatosplenomegaly; bowel sounds are present in all four quadrants. EXTREMITIES: No clubbing, cyanosis,2+ edema lower extremities. SKIN: Normal; no rash; no jaundice. PATHOLOGIST: No focal deficits; Lethargic and oriented times 1 Assessment and Plan Plan ASSESSMENT: - GIB, Hematochezia. S/P Recent EGD (05/03/16)---> Grade 2 esophageal varices 3 no active bleed. No banding because of low hgb, low plt, high inr. Pt was discharged to nursing facility and brought back for AMS. He is lethargic, but oriented, although a poor historian. While in ER, he passed small amount of maroon colored blood. Pt cannot provide any information about this. He has not had any further bleeding. He received platelets yesterday afternoon in anticipation of EGD with possible band ligation and colonoscopy today; however, his platelets are still low at 27. HH 9.1/.6. - Anemia, acute blood loss. HH 9./.6. S/P 2 PRBC. - Liver cirrhosis. Patient denies any history of liver cirrhosis. He was diagnosed during his last admission. He denies any history of heavy alcohol use. We will order the liver workup, since the etiology of this is unclear. He does have advanced liver cirrhosis, with MELD of 16, with coagulopathy, varices, thrombocytopenia, and elevated LFTs with low albumin. AFP significantly elevated at 2822.1. Will need CT vs. MRI once renal function allows. Creat. still 1.49. However, his GFR is above 30 so he may be able to go ahead and have MRI. - Ascites, large amount. Not tense or painful. Afebrile. Albumin, Lasix, Spironolactone. Negative balance although he continues to have significant ascites, appears to be worsening. - Coagulopathy/Thrombocytopenia. Plt26. PT 18.5 INR 1.6. - HTN, Hyperlipidemia, DM, CKD per primary. PLAN: - Heart healthy diet - Cont. PPI - Cont. Albumin - Cont. Lasix - Cont. Spironolactone - Monitor HH - Transfuse as necessary - Strict I/O - MRI abdomen to evaluate for liver mass, elevated AFP - Hematology following, feels that thrombocytopenia is related to sepsis and that it should improve once infection resolves. - Monitor CBC, BMP, PT/INR - Recommend restarting his beta chelsea when able - Supportive care - Further recommendations to follow based on results of above - Pt seen and examined by Dr. Fontana and myself and this note is written on his behalf Lia Akhtar May 14, 2016 11:13
--- NOTE | 2016-05-14 13:59 | PD.ONC.PN ---
Subjective Subjective Remarks Afebrile overnight. Patient resting comfortably. Son at bedside. Objective Data Date Time Temp Pulse Resp B/P Pulse Ox O2 Delivery O2 Flow Rate FiO2 05/14/16 12:43 98.6 80 18 176/84 96 05/14/16 08:01 98.7 79 20 183/85 96 05/14/16 08:00 Room Air 05/14/16 08:00 75 05/14/16 06:41 80 175/80 05/14/16 04:48 97.4 76 16 181/78 96 05/14/16 00:00 98.0 88 18 178/85 98 05/13/16 21:00 165/75 Automatic Cuff 05/13/16 20:20 Room Air 05/13/16 20:20 81 05/13/16 20:00 97.5 84 16 171/84 97 05/13/16 15:23 97.4 85 20 178/82 98 05/13/16 15:23 97.4 85 20 178/82 98 05/13/16 15:08 97.7 82 20 174/81 98 05/13/16 14:59 97.9 84 20 173/77 98 05/14/16 05/14/16 05/14/16 07:00 15:00 23:00 Intake Total 200 ml Output Total 200 ml Balance 0 ml Result Diagram: 05/14/1659 05/14/16658 Laboratory Results Laboratory Tests Test 05/13/16 05/14/16 14:31 06:59 Ammonia 20 MCMOL/L White Blood Count 3.0 TH/MM3 Red Blood Count 3.26 MIL/MM3 Hemoglobin 9.1 GM/DL Hematocrit 27.6 % Mean Corpuscular Volume 84.8 FL Mean Corpuscular Hemoglobin 27.9 PG Mean Corpuscular Hemoglobin 32.9 % Concent Red Cell Distribution Width 19.4 % Platelet Count 27 TH/MM3 Mean Platelet Volume 9.0 FL Neutrophils (%) (Auto) 78.4 % Lymphocytes (%) (Auto) 9.9 % Monocytes (%) (Auto) 9.7 % Eosinophils (%) (Auto) 1.5 % Basophils (%) (Auto) 0.5 % Neutrophils # (Auto) 2.3 TH/MM3 Lymphocytes # (Auto) 0.3 TH/MM3 Monocytes # (Auto) 0.3 TH/MM3 Eosinophils # (Auto) 0.0 TH/MM3 Basophils # (Auto) 0.0 TH/MM3 CBC Comment AUTO DIFF Differential Comment AUTO DIFF CONFIRMED Platelet Estimate LOW Platelet Morphology Comment NORMAL Keratocytes OCC Prothrombin Time 18.5 SEC Prothromb Time International 1.6 RATIO Ratio Activated Partial 46.7 SEC Thromboplast Time Fibrinogen 120 mg/dL Sodium Level 141 MEQ/L Potassium Level 3.5 MEQ/L Chloride Level 110 MEQ/L Carbon Dioxide Level 18.5 MEQ/L Anion Gap 13 MEQ/L Blood Urea Nitrogen 33 MG/DL Creatinine 1.49 MG/DL Estimat Glomerular Filtration 46 ML/MIN Rate Random Glucose 131 MG/DL Calcium Level 8.2 MG/DL Administered Medications Medications (Trade) Dose Ordered Sig/Melania Route PRN Reason Start Time Stop Time Status Last Admin Dose Admin IV Flush (NS Flush) 2 ml UNSCH PRN IVF FLUSH AFTER USING IV ACCESS 05/08/16 10:00 05/12/16 20:32 IV Flush (NS Flush) 2 ml UNSCH PRN FLUSH FLUSH AFTER USING IV ACCESS 05/08/16 12:30 05/12/16 20:31 IV Flush (NS Flush) 2 ml BID FLUSH 05/08/16 21:00 05/14/16 08:41 Acetaminophen (Tylenol) 650 mg Q6H PRN PO PAIN SCALE 1 TO 2 05/08/16 12:30 05/13/16 12:13 Lactobacillus Acidophilus 1 tab 1 tab Q12HR PO 05/08/16 21:00 05/14/16 10:19 Sodium Chloride (NS 1000 ml Inj) 1,000 ml @ 84 mls/hr [id number] IV 05/08/16 14:45 Hold 05/09/16 14:35 Pantoprazole Sodium (Protonix Inj) 40 mg Q24H IV PUSH 05/09/16 09:00 05/14/16 08:40 Folic Acid (Folate) 1 mg DAILY PO 05/10/16 09:00 05/14/16 10:18 Furosemide 20 mg 20 mg DAILY PO 05/10/16 11:30 05/14/16 10:23 Cefepime HCl/ Sodium Chloride (Maxipime Inj/NS Inj) 100 ml @ 200 mls/hr Q12HR IV 05/10/16 21:00 05/14/16 08:40 Spironolactone (Aldactone) 50 mg BID PO 05/11/16 21:00 05/14/16 10:22 Objective Remarks GENERAL: Elderly male, lying supine in bed, in nad. SKIN: Warm and dry. HEAD: Normocephalic. EYES: + scleral icterus. No injection or drainage. NECK: Supple, trachea midline. CARDIOVASCULAR: Regular rate and rhythm RESPIRATORY: Breath sounds equal bilaterally. No accessory muscle use. GASTROINTESTINAL: Abdomen soft, non-tender, nondistended. EXTREMITIES: No cyanosis Assessment/Plan Problem List: (1) Pancytopenia Status: Acute Plan: --blood counts should improve to baseline (not to normal values) once infection is controlled --has baseline anemia and thrombocytopenia due to cirrhosis and splenomegaly. --further drop in blood count likely due to sepsis and possible DIC. --low folate--will start on daily folate replacement --transfuse for hgb<7 or any sign of bleeding. (2) Sepsis Status: Acute Plan: BC +E. Coli --UTI vs SBP --on abx per ID (3) GI bleed Status: Acute Plan: --Recent GI bleed due to esophageal varices. --has no gross GI bleeding at this time. Continue to monitor hemoglobin. (4) Elevated alpha fetoprotein Status: Acute Plan: --? Hepatocellular carcinoma --no mass seen on CT ab/pelvis without contrast --U/S Abdomen obtained 05/03 showed hepatomegaly and sludge and a focal echogenic area near the neck of the gallbladder which may represent a non- mobile stone. Assessment 75y/o male with pancytopenia, admitted with altered mental status h/o Diabetes mellitus. Recent GI bleed. Grade 3 esophageal varices. Hypertension. Hyperlipidemia. Cirrhosis. Splenomegaly. Plan 1. monitor CBC, coags 2. plan for MRI once renal function improves. 3. prognosis poor d/w patient's son at bedside. Attending Statement The exam, history, and the medical decision-making described in the above note were completed with the assistance of the mid-level provider. I reviewed and agree with the findings presented. I attest that I had a [id number] encounter with the patient on the same day, and personally performed and documented my assessment and findings in the medical record.Slightly confused. Blood counts are still low due to cirrhosis/splenomegaly and DIC. No obvious bleeding noted. AFP markedly elevated and worrisome for HCC, need MRI of liver once creatinine improved. Can transfuse platelet if any sign of bleeding or if he needs procedure. Problem Qualifiers (1) Sepsis: Qualified Code: A41.51 - Sepsis due to Escherichia coli Joanna Jaramillo May 14, 2016 13:59 Aádn Diehl MD May 14, 2016 15:32
[2016-05-14] MEDS ORDERED: cefTRIAXone INJ 2,000 MG in SODIUM CHLORIDE 0.9% INJ 100 ML IV SCH (15:00)
[2016-05-14] MEDS ORDERED: ENALAPRILAT 1.25 MG/ML VIAL IV PUSH PRN (15:15)
--- NOTE | 2016-05-14 15:41 | EC ---
Study Study Date:05/14/2016 STUDY CONCLUSIONS SUMMARY - Left ventricle: The cavity size was normal. Wall thickness was increased in a pattern of mild LVH. Systolic function was normal. The estimated ejection fraction was 65%, in the range of 60% to 65%. Wall motion was normal; there were no regional wall motion abnormalities. - Aortic valve: Mild regurgitation. Valve area: 2.9cm^2(VTI). Valve area: 2.61cm^2 (Vmax). - Mitral valve: Mild regurgitation. - Pulmonic valve: Mild regurgitation. If LV function is below 40, please consider prescribing an ACEI or ARB or document rationale for non-use. PROCEDURE DATA STUDY STATUS: Elective. Procedure: Transthoracic echocardiography. Image quality was good. Scanning was performed from the parasternal, apical, and subcostal acoustic windows. Study completion: The patient tolerated the procedure well. Transthoracic echocardiography. M-mode, complete 2D, complete spectral Doppler, and color Doppler. Height: Height: 67in. Weight: Weight: 211.6lb. Body mass index: BMI: 33.2kg/m^2. Body surface area: BSA: 2.07m^2. Patient status: Inpatient. CARDIAC ANATOMY LEFT VENTRICLE: The cavity size was normal. Wall thickness was increased in a pattern of mild LVH. Systolic function was normal. The estimated ejection fraction was 65%, in the range of 60% to 65%. Wall motion was normal; there were no regional wall motion abnormalities. AORTIC VALVE: Trileaflet; mildly thickened, mildly calcified leaflets. Doppler: Transvalvular velocity was within the normal range. There was no stenosis. Mild regurgitation. Valve area: 2.9cm^2(VTI). Indexed valve area: 1.4cm^2/m^2 (VTI). Valve area: 2.61cm^2 (Vmax). Indexed valve area: 1.26cm^2/m^2 (Vmax). Mean gradient: 3mm Hg (S). AORTA: Aortic root: The aortic root was normal in size. MITRAL VALVE: Structurally normal valve. Doppler: Transvalvular velocity was within the normal range. There was no evidence for stenosis. Mild regurgitation. Peak gradient: 3mm Hg (D). LEFT ATRIUM: The atrium was normal in size. RIGHT VENTRICLE: The cavity size was normal. Wall thickness was normal. PULMONIC VALVE: Doppler: Transvalvular velocity was within the normal range. There was no evidence for stenosis. Mild regurgitation. TRICUSPID VALVE: Structurally normal valve. Doppler: Transvalvular velocity was within the normal range. Trace regurgitation. PULMONARY ARTERY: The main pulmonary artery was normal-sized. Systolic pressure was within the normal range. RIGHT ATRIUM: The atrium was normal in size. PERICARDIUM: There was no pericardial effusion. Patient weight: 211.6lb _Ejection fraction:_ 65-75% _Fractional shortening:_ 32% up to 5Kg 5-11.5Kg 11.6-22.9Kg 23-45Kg 45-57Kg Aortic Root 7-13 <17 13-22 17-27 17-27 LA diam 6-13 <23 24-38 33-47 37-40 RVID 10-17 7-15 7-15 7-18 8-17 LVIDd 12-22 <32 24-38 33-47 37-40 LVPW 2-4 3-6 5-7 6-8 7-8 IVS 2-4 3-6 5-7 6-8 7-8 BASIC MEASUREMENTS ADULT NORMAL Left ventricle LV internal dimension, ED, chordal *42.5 mm 43-52 level, PLAX LV internal dimension, ES, chordal 30.3 mm 23-38 level, PLAX Fractional shortening, chordal level, *29 % >29 PLAX LV posterior wall thickness, ED 11.6 mm IVS/LVPW ratio, ED 1 <1.3 Ventricular septum Septal thickness, ED 11.6 mm Aortic valve Leaflet separation 19 mm 15-26 Aorta Root diameter, ED 37 mm Left atrium Anterior-posterior dimension 34 mm Anterior-posterior dimension index 1.64 cm/m^2 <2.2 BASIC MEASUREMENTS ADULT NORMAL Aortic valve Leaflet separation 19 mm 15-26 DOPPLER MEASUREMENTS ADULT NORMAL Main pulmonary artery Pressure, S 26 mm Hg =30 Aortic valve Peak velocity, S 135 cm/s Mean velocity, S 82.6 cm/s VTI, S 27.2 cm Mean gradient, S 3 mm Hg Valve area, VTI 2.9 cm^2 Valve area index, VTI 1.4 cm^2/m^2 Valve area, Vmax 2.61 cm^2 Valve area index, Vmax 1.26 cm^2/m^2 Regurgitant velocity, ED 398 cm/s Regurgitant deceleration 2660 cm/s^2 Regurgitant pressure half-time 438 ms Regurgitant gradient, ED 63 mm Hg Mitral valve Peak E-wave velocity 83.9 cm/s Peak A-wave velocity 106 cm/s Deceleration time *254 ms 150-230 Peak gradient, D 3 mm Hg Peak E/A ratio 0.8 Tricuspid valve Regurgitant peak velocity 242 cm/s Peak RV-RA gradient, S 23 mm Hg Maximal regurgitant velocity 242 cm/s Systemic veins Estimated CVP 5 mm Hg Right ventricle RV pressure, S 28 mm Hg <30 Pulmonic valve Peak velocity, S 61.7 cm/s LEGEND: Mean values are shown as u=mean value. Asterisk (*) lechuga values outside specified normal range. Prepared and signed by Montez Aguilar [id number]
[2016-05-14] MEDS ORDERED: GADODIAMIDE PF 287 MG/ML 5 ML VIAL (for RAD MRI) IV PUSH ONE (17:33)
--- NOTE | 2016-05-14 18:11 | RADRPT ---
EXAM DATE/TIME: 05/14/2016 15:43 [facility] COMPARISON: CT ABDOMEN & PELVIS W/O CONTRAST, May 08, 2016, 10:17. INDICATIONS : Cirrhosis. Eleavted Alpha Fetoprotein. CONTRAST: 19 cc Omniscan (gadodiamide) IV MEDICAL HISTORY : Diabetes mellitus type 2. Hypertension. Cirrhosis. SURGICAL HISTORY : Broken leg. ENCOUNTER: Initial ACUITY: 2 day PAIN SCORE: 2/10 LOCATION: Bilateral upper quadrant TECHNIQUE: Multiplanar, multisequence magnetic resonance imaging of the abdomen was performed without and with i ntravenous contrast. FINDINGS: Examination quality is severely degraded do to motion artifact and artifact related to large volume o f ascites. LIVER: The liver measures 16.2 cm in length and demonstrates nodular contour diagnostic of cirrhosis. Assess ment of the liver is extremely limited due to artifact on all sequences. However, there is abnormal d iffusion signal and patchy areas within the right liver primarily posteriorly. This area demonstrates heterogeneous enhancement with hypointense areas on the delayed sequences. Since it is poorly visual ized and appears infiltrative an exact measurement cannot be given. No normal enhancing main portal v ein is visualized and is suspected to be occluded and I believe the right portal vein branch is occlu ded potentially due to bland or tumor thrombus. No lesion is seen in the left lobe. BILIARY: There is no intra- or extra-hepatic biliary ductal dilatation. No definite gallstones are seen. SPLEEN: The spleen is enlarged measuring 17.4 cm in length. PANCREAS: No definite lesion is seen. ADRENALS: No definite lesion is seen. KIDNEYS: No definite lesion is seen. There is no hydronephrosis. OTHER: There is a large volume of ascites within the abdomen and pelvis. A small hiatal hernia is present. T here is atherosclerotic change of the abdominal aorta. CONCLUSION: 1. Examination is severely degraded by respiratory motion artifact and artifact related to the ascite s. However, I believe there is an infiltrative mass involving most of the right lobe of the liver par ticularly posteriorly. Given the background cirrhosis and elevated AFP this is highly suspicious for an infiltrative hepatocellular carcinoma. 2. Findings suspicious for main and right portal vein thrombosis which could be secondary to bland or tumor thrombus. 3. Findings indicative of portal hypertension including splenomegaly and large volume of ascites with in the abdomen and pelvis. Bret Cedeno MD on May 14, 2016 at 18:01 Board Certified Radiologist. This report was verified electronically.
--- NOTE | 2016-05-14 18:41 | HHI.PR ---
Subjective Remarks Patient resting in bed, just came from MRI, denied chest breath or fever or chills Objective Vitals Vital Signs Date Time Temp Pulse Resp B/P Pulse Ox O2 Delivery O2 Flow Rate FiO2 05/14/16 12:43 98.6 80 18 176/84 96 05/14/16 08:01 98.7 79 20 183/85 96 05/14/16 08:00 Room Air 05/14/16 08:00 75 05/14/16 06:41 80 175/80 05/14/16 04:48 97.4 76 16 181/78 96 05/14/16 00:00 98.0 88 18 178/85 98 05/13/16 21:00 165/75 Automatic Cuff 05/13/16 20:20 Room Air 05/13/16 20:20 81 05/13/16 20:00 97.5 84 16 171/84 97 I/O 05/13/16 05/13/16 05/13/16 05/14/16 05/14/16 05/14/16 07:00 15:00 23:00 07:00 15:00 23:00 Intake Total 200 ml 360 ml 580 ml 200 ml Output Total 625 ml 700 ml 450 ml 200 ml Balance -425 ml -340 ml 130 ml 0 ml Intake Oral 100 ml 360 ml 480 ml IV Total 100 ml 100 ml 200 ml Output Urine Total 625 ml 700 ml 450 ml 200 ml # Bowel Movements 1 0 2 0 Result Diagram: 05/14/16 0659 05/14/16 0659 Objective Remarks GENERAL: This is a well-nourished, well-developed patient, in no apparent distress. SKIN: No rashes, warm and dry HEAD: Atraumatic. Normocephalic. EYES: Pupils equal round and reactive. Extraocular motions intact. No scleral icterus. ENT: Nose without bleeding, or drainage, Airway patent. NECK: Trachea midline. Supple CARDIOVASCULAR: Regular rate and rhythm without murmurs, gallops, or rubs. RESPIRATORY: Fair air entry bilaterally. No wheezes, rales, or rhonchi. GASTROINTESTINAL: Abdomen soft, non-tender, nondistended. Positive bowel sounds MUSCULOSKELETAL: Extremities without clubbing, cyanosis, or edema. Pedal pulses appreciated NEUROLOGICAL: Awake and alert. Moves all extremity. Normal speech.no focal neurological deficit A/P Problem List: (1) Toxic metabolic encephalopathy ICD Code: G92 Status: Acute (2) SBP (spontaneous bacterial peritonitis) ICD Code: K65.2 Status: Acute (3) UTI (urinary tract infection) ICD Code: N39.0 Status: Acute (4) Sepsis ICD Code: A41.9 Status: Acute (5) Pancytopenia ICD Code: D61.818 Status: Acute (6) Diabetes mellitus ICD Code: E11.9 Status: Acute (7) Diabetes mellitus type 2 in obese ICD Code: E11.9 Status: Acute (8) GI bleed ICD Code: K92.2 Status: Acute (9) Esophageal varices ICD Code: I85.00 Status: Acute (10) Elevated AFP ICD Code: R77.2 Status: Acute Assessment and Plan 05/14/16: Patient had an MRI of the abdomen today spending, continue current care as below, Blood pressure is not optimal, will add Vasotec as needed A/P: 75-year-old male with 1-Sepsis/[id number]: Likely source UTI; currently on cefepime pending culture report. Appreciate input from ID 2-Toxic metabolic versus hepatic encephalopathy: Check ammonia 05/13/16 and treat accordingly 3-Anemia of chronic GIB: Transfused 2 units PRBC 05/12/16; H&H currently stable 4-UTI: Currently on Cefepime pending Urine culture 5-Hyperammonemia: Now resolved however due to increased confusion, check ammonia level and resume lactulose accordingly 6-Recent history of GI bleed: With recent diagnosis of esophageal varices. No active bleeding, Protonix IV. EGD was not performed 05/11/16 due to anemia. Currently on spironolactone and Lasix secondary to ascites/cirrhosis. Elevated AFP concerning for hepatocellular carcinoma, therefore abdominal MRI 05/14/16 pending. Negative hepatitis profile 7-Chronic kidney disease stage III: Renal indices improving, and avoid all nephrotoxic drugs 8-Hypertension: continue outpatient medication 9-Diabetes type 2: Hold oral hypoglycemic agent, medium sliding scale insulin. 10-DVT prophylaxis: Bilateral SCDs 11-Pancytopenia: Appear to be secondary to current infection vs DIC, appreciate input from hematology, continue with current treatment. Daily folate. Problem Qualifiers (1) Sepsis: Qualified Code: A41.51 - Sepsis due to Escherichia coli Tamiko Kelley MD May 14, 2016 18:41
[2016-05-15 04:05] VITALS: BP 165/70; PULSE 84; RESP 18; TEMP 97.8; O2SAT 95
[2016-05-15] MEDS: INSULIN ASPART SUPPLEMENTAL SCALE SQ SCH ×2 (05:06→10:57)
[2016-05-15 07:45] VITALS: PULSE 80
[2016-05-15 08:01] VITALS: BP 153/70; PULSE 82; RESP 18; TEMP 98; O2SAT 96
[2016-05-15] MEDS ORDERED: PHYTONADIONE 10 MG/ML VIAL SQ SCH (09:00)
[2016-05-15] MEDS: LACTOBACILLUS ACIDOPHILUS TAB PO SCH (09:02)
[2016-05-15] MEDS: PANTOPRAZOLE SODIUM 40 MG VIAL IV PUSH SCH (09:02)
[2016-05-15] MEDS: SPIRONOLACTONE 50 MG TAB PO SCH (09:03)
[2016-05-15] MEDS: FOLIC ACID 1 MG TAB PO SCH (09:03)
[2016-05-15] MEDS: FUROSEMIDE 20 MG TAB PO SCH (09:03)
[2016-05-15 09:09] LABS: INTERNATIONAL NORMALIZED RATIO 1.5 RATIO; PROTHROMBIN TIME - PATIENT 17.4 SEC (9.8-11.6)
[2016-05-15] MEDS: SODIUM CHLORIDE 0.9% FLUSH 5 ML FLUSH FLUSH SCH (09:13)
[2016-05-15 09:17] LABS: AUTOMATED NEUTROPHIL # 2.4 TH/MM3 (1.8-7.7); BASOPHIL % 0.9 % (0.0-2.0); EOSINOPHIL % 1.3 % (0.0-4.0); HEMATOCRIT 28.2 % (39.0-51.0); LYMPH % 13.8 % (9.0-44.0); LYMPHOCYTE # 0.4 TH/MM3 (1.0-4.8); MEAN CORPUSCULAR HEMOGLOBIN 27.5 PG (27.0-34.0); MEAN CORPUSCULAR HGB CONC 32.4 % (32.0-36.0); MONO % 9.8 % (0.0-8.0); NEUT % 74.2 % (16.0-70.0); PLATELET COUNT 23 TH/MM3 (150-450); RED BLOOD COUNT 3.32 MIL/MM3 (4.50-5.90); RED CELL DISTRIBUTION WIDTH 20.1 % (11.6-17.2); WHITE BLOOD COUNT 3.2 TH/MM3 (4.0-11.0)
[2016-05-15 09:24] LABS: HEMO FLAGS AUTO DIFF
[2016-05-15 09:43] LABS: ALKALINE PHOSPHATASE 61 U/L (45-117); ALT (GPT) 15 U/L (12-78); ANION GAP 12 MEQ/L (5-15); AST (GOT) 21 U/L (15-37); BLOOD UREA NITROGEN 34 MG/DL (7-18); CHLORIDE 112 MEQ/L (98-107); GLOMERULAR FILTRATION RATE 41 ML/MIN (>89); POTASSIUM 3.8 MEQ/L (3.5-5.1); SODIUM (NA) 141 MEQ/L (136-145); TOTAL BILIRUBIN ADULT 2.5 MG/DL (0.2-1.0)
--- NOTE | 2016-05-15 09:47 | HHI.PR ---
Subjective Remarks Patient laying in bed, awake alert, stated he still had abdominal pain MRI yesterday raising suspicious for liver malignancy Possible plan to go with hospice today per the family Objective Vitals Vital Signs Date Time Temp Pulse Resp B/P Pulse Ox O2 Delivery O2 Flow Rate FiO2 05/15/16 08:01 98.0 82 18 153/70 96 05/15/16 08:00 Room Air 05/15/16 04:05 97.8 84 18 165/70 95 05/14/16 23:32 98.3 76 18 148/72 96 05/14/16 21:08 97.2 77 18 168/78 97 05/14/16 21:03 72 05/14/16 21:00 Room Air 05/14/16 16:01 98.8 80 20 174/84 96 05/14/16 12:43 98.6 80 18 176/84 96 I/O 05/14/16 05/14/16 05/14/16 05/15/16 05/15/16 05/15/16 07:00 15:00 23:00 07:00 15:00 23:00 Intake Total 200 ml 0 ml 2 ml 0 ml Output Total 200 ml 1200 ml 200 ml 125 ml Balance 0 ml -1200 ml -198 ml -125 ml Intake Oral 0 ml 0 ml 0 ml IV Total 200 ml 2 ml Output Urine Total 200 ml 1200 ml 200 ml 125 ml Stool Total 0 ml # Bowel Movements 0 0 0 0 Result Diagram: 05/15/1683705/15/16837 Objective Remarks GENERAL: This is a well-nourished, well-developed patient, in no apparent distress. SKIN: No rashes, warm and dry HEAD: Atraumatic. Normocephalic. EYES: Pupils equal round and reactive. Extraocular motions intact. No scleral icterus. ENT: Nose without bleeding, or drainage, Airway patent. NECK: Trachea midline. Supple CARDIOVASCULAR: Regular rate and rhythm without murmurs, gallops, or rubs. RESPIRATORY: Fair air entry bilaterally. No wheezes, rales, or rhonchi. GASTROINTESTINAL: Abdomen soft, non-tender, nondistended. Positive bowel sounds MUSCULOSKELETAL: Extremities without clubbing, cyanosis, or edema. Pedal pulses appreciated NEUROLOGICAL: Awake and alert. Moves all extremity. Normal speech.no focal neurological deficit A/P Problem List: (1) Toxic metabolic encephalopathy ICD Code: G92 Status: Acute (2) SBP (spontaneous bacterial peritonitis) ICD Code: K65.2 Status: Acute (3) UTI (urinary tract infection) ICD Code: N39.0 Status: Acute (4) Sepsis ICD Code: A41.9 Status: Acute (5) Pancytopenia ICD Code: D61.818 Status: Acute (6) Diabetes mellitus ICD Code: E11.9 Status: Acute (7) Diabetes mellitus type 2 in obese ICD Code: E11.9 Status: Acute (8) GI bleed ICD Code: K92.2 Status: Acute (9) Esophageal varices ICD Code: I85.00 Status: Acute (10) Elevated AFP ICD Code: R77.2 Status: Acute Assessment and Plan 05/14/16: Patient had an MRI of the abdomen today spending, continue current care as below, Blood pressure is not optimal, will add Vasotec as needed 05/15/16: MRI of the abdomen showed possible liver malignancy, palliative care on board possible hospice A/P: 75-year-old male with 1-Sepsis/ntbvjajqne-jodn-krudvqmg: Likely source UTI; currently on cefepime pending culture report. Appreciate input from ID 2-Toxic metabolic versus hepatic encephalopathy: Check ammonia 05/13/16 and treat accordingly 3-Anemia of chronic GIB: Transfused 2 units PRBC 05/12/16; H&H currently stable 4-UTI: Currently on Cefepime pending Urine culture 5-Hyperammonemia: Now resolved however due to increased confusion, check ammonia level and resume lactulose accordingly 6-Recent history of GI bleed: With recent diagnosis of esophageal varices. No active bleeding, Protonix IV. EGD was not performed 05/11/16 due to anemia. Currently on spironolactone and Lasix secondary to ascites/cirrhosis. Elevated AFP concerning for hepatocellular carcinoma, therefore abdominal MRI 05/14/16 pending. Negative hepatitis profile 7-Chronic kidney disease stage III: Renal indices improving, and avoid all nephrotoxic drugs 8-Hypertension: continue outpatient medication 9-Diabetes type 2: Hold oral hypoglycemic agent, medium sliding scale insulin. 10-DVT prophylaxis: Bilateral SCDs 11-Pancytopenia: Appear to be secondary to current infection vs DIC, appreciate input from hematology, continue with current treatment. Daily folate. Discharge Planning Possible hospice transfer today Problem Qualifiers (1) Sepsis: Qualified Code: A41.51 - Sepsis due to Escherichia coli Tamiko Kelley MD May 15, 2016 09:47
[2016-05-15 09:57] LABS: PLATELET ESTIMATE SMEAR LOW (NORMAL); PLATELET MORPHOLOGY NORMAL (NORMAL); SCAN/DIFF AUTO DIFF CONFIRMED
[2016-05-15] MEDS ORDERED: LEVOFLOXACIN 750 MG TAB PO SCH ×2 (10:00→11:43)
--- NOTE | 2016-05-15 10:01 | PD.ONC.PN ---
Subjective Subjective Remarks Afebrile overnight. Patient resting. No family members in room. Remains confused. Objective Data Date Time Temp Pulse Resp B/P Pulse Ox O2 Delivery O2 Flow Rate FiO2 05/15/16 08:01 98.0 82 18 153/70 96 05/15/16 08:00 Room Air 05/15/16 04:05 97.8 84 18 165/70 95 05/14/16 23:32 98.3 76 18 148/72 96 05/14/16 21:08 97.2 77 18 168/78 97 05/14/16 21:03 72 05/14/16 21:00 Room Air 05/14/16 16:01 98.8 80 20 174/84 96 05/14/16 12:43 98.6 80 18 176/84 96 05/15/16 05/15/16 05/15/16 07:00 15:00 23:00 Intake Total 0 ml Output Total 125 ml Balance -125 ml Result Diagram: 05/15/16 0838 05/15/16 0838 Laboratory Results Laboratory Tests Test 05/15/16 08:38 White Blood Count 3.2 TH/MM3 Red Blood Count 3.32 MIL/MM3 Hemoglobin 9.1 GM/DL Hematocrit 28.2 % Mean Corpuscular Volume 85.0 FL Mean Corpuscular Hemoglobin 27.5 PG Mean Corpuscular Hemoglobin 32.4 % Concent Red Cell Distribution Width 20.1 % Platelet Count 23 TH/MM3 Mean Platelet Volume 8.8 FL Neutrophils (%) (Auto) 74.2 % Lymphocytes (%) (Auto) 13.8 % Monocytes (%) (Auto) 9.8 % Eosinophils (%) (Auto) 1.3 % Basophils (%) (Auto) 0.9 % Neutrophils # (Auto) 2.4 TH/MM3 Lymphocytes # (Auto) 0.4 TH/MM3 Monocytes # (Auto) 0.3 TH/MM3 Eosinophils # (Auto) 0.0 TH/MM3 Basophils # (Auto) 0.0 TH/MM3 CBC Comment AUTO DIFF Prothrombin Time 17.4 SEC Prothromb Time International 1.5 RATIO Ratio Sodium Level 141 MEQ/L Potassium Level 3.8 MEQ/L Chloride Level 112 MEQ/L Carbon Dioxide Level 17.0 MEQ/L Anion Gap 12 MEQ/L Blood Urea Nitrogen 34 MG/DL Creatinine 1.67 MG/DL Estimat Glomerular Filtration 41 ML/MIN Rate Random Glucose 118 MG/DL Calcium Level 8.0 MG/DL Total Bilirubin 2.5 MG/DL Aspartate Amino Transf 21 U/L (AST/SGOT) Alanine Aminotransferase 15 U/L (ALT/SGPT) Alkaline Phosphatase 61 U/L Total Protein 6.3 GM/DL Albumin 2.7 GM/DL Administered Medications Medications (Trade) Dose Ordered Sig/Melania Route PRN Reason Start Time Stop Time Status Last Admin Dose Admin IV Flush (NS Flush) 2 ml UNSCH PRN IVF FLUSH AFTER USING IV ACCESS 05/08/16 10:00 05/12/16 20:32 IV Flush (NS Flush) 2 ml UNSCH PRN FLUSH FLUSH AFTER USING IV ACCESS 05/08/16 12:30 05/12/16 20:31 IV Flush (NS Flush) 2 ml BID FLUSH 05/08/16 21:00 05/15/16 09:13 Acetaminophen (Tylenol) 650 mg Q6H PRN PO PAIN SCALE 1 TO 2 05/08/16 12:30 05/13/16 12:13 Lactobacillus Acidophilus 1 tab 1 tab Q12HR PO 05/08/16 21:00 05/15/16 09:02 Sodium Chloride (NS 1000 ml Inj) 1,000 ml @ 84 mls/hr [id number] IV 05/08/16 14:45 Hold 05/09/16 14:35 Pantoprazole Sodium (Protonix Inj) 40 mg Q24H IV PUSH 05/09/16 09:00 05/15/16 09:02 Folic Acid (Folate) 1 mg DAILY PO 05/10/16 09:00 05/15/16 09:03 Furosemide (Lasix) 20 mg DAILY PO 05/10/16 11:30 05/15/16 09:03 Spironolactone (Aldactone) 50 mg BID PO 05/11/16 21:00 05/15/16 09:03 Phytonadione (Vitamin K Inj) 5 mg DAILY SQ 05/15/16 09:00 05/15/16 09:03 Objective Remarks GENERAL: Chronically ill appearing male, lying in bed, in nad. SKIN: Warm and dry. +jaundice HEAD: Normocephalic. EYES: + scleral icterus. No injection or drainage. NECK: Supple, trachea midline. CARDIOVASCULAR: Regular rate and rhythm RESPIRATORY: Breath sounds equal bilaterally. No accessory muscle use. GASTROINTESTINAL: Abdomen soft, non-tender, nondistended. EXTREMITIES: No cyanosis. Assessment/Plan Problem List: (1) Pancytopenia Status: Acute Plan: --blood counts should improve to baseline (not to normal values) once infection is controlled --has baseline anemia and thrombocytopenia due to cirrhosis and splenomegaly. --further drop in blood count likely due to sepsis and possible DIC. --low folate--will start on daily folate replacement --transfuse for hgb<7 or any sign of bleeding. (2) GI bleed Status: Acute Plan: --Recent GI bleed due to esophageal varices. --has no gross GI bleeding at this time. Continue to monitor hemoglobin. (3) Elevated alpha fetoprotein Status: Acute Plan: --MRI abdomen showed possible infiltrative mass in right lobe of liver. --no mass seen on CT ab/pelvis without contrast --U/S Abdomen obtained 05/03 showed hepatomegaly and sludge and a focal echogenic area near the neck of the gallbladder which may represent a non- mobile stone. Assessment 75y/o male with pancytopenia, admitted with altered mental status h/o Diabetes mellitus. Recent GI bleed. Grade 3 esophageal varices. Hypertension. Hyperlipidemia. Cirrhosis. Splenomegaly. Plan 1. consult palliative care for assistance with goals of care 2. monitor CBC, coags Attending Statement The exam, history, and the medical decision-making described in the above note were completed with the assistance of the mid-level provider. I reviewed and agree with the findings presented. I attest that I had a [id number] encounter with the patient on the same day, and personally performed and documented my assessment and findings in the medical record. Patient is not oriented but calm. Denies any pain. Reviewed MRI with radiologist, there is a ehatic mass most c/w hepatocellular carcinoma. AFP is markedly elevated. Patient has poor performance status and not candidate for systemic tx. Can consider palliative XRT if he has pain. Prognosis is very poor. The condition is terminal. I would recommend hospice care. Palliative care meds has been consulted. Joanna Jaramillo May 15, 2016 10:01 Adán Diehl MD May 15, 2016 14:42
--- NOTE | 2016-05-15 11:57 | PD.CONS ---
Consult Service Palliative Care Consult Requested By Jessica Jaramillo PA-C / [facility] . Primary Care Physician Unknown . Reason for Consultation a. To assist with evaluation and management of symptoms including: Confusion, restlessness b. To assist medical decision maker(s) with: better understanding of current medical conditions; weighing benefits/burdens of medical treatment options; making medical treatment decisions. . HPI History of Present Illness This 75-year-old male, with a known past history of recently diagnosed cirrhosis , varices with recent bleeding, chronic anemia, and chronic kidney disease, has been declining for the past 3 or 4 months. He reportedly had been losing muscle mass but developing and enlarging abdominal girth and becoming weaker, and had been withdrawing from interaction with neighbors and friends over the past 2 or 3 months. When neighbors did not see him for a few days, they entered his home and found him on the floor and brought him to the hospital on . He had reportedly had some vomiting and diarrhea, had a Hemoccult- positive stool, and was quite anemic (hemoglobin 5.5, platelets 111,000, INR 1.6 , creatinine 2.26) area he was transfused and underwent EGD, with grade 3 varices noted. The patient was sent to [facility] on 05/04/16, but was returned here to the hospital on 05/08/16 because of altered mental status, confusion, weakness. In the emergency department, findings included: * Weakness, confusion, sallow appearance, obvious ascites * Temp 99.0, pulse 85, respirations 18, blood pressure 136/88, oxygen saturation 100% on room air * White count 8.7, hemoglobin 8.8, platelets 97,000 * INR 1.6 * Sodium 138, creatinine 2.11, albumin 2.3 * Bilirubin 3.3, AST 48, ALT 31, ammonium 39 * CT scan of the abdomen/pelvis revealed a large amount of ascites, cirrhosis of the liver, and splenomegaly. The patient was admitted again for evaluation. Blood cultures grew Escherichia coli, as did a urine culture. A CT scan of the brain was undertaken and was read as negative. His creatinine improved to 1.68. However, the alpha- fetoprotein result was 2822.1. By 05/12/16, the hemoglobin is dropped again to 6.4, and the patient was transfused again. The patient was noted to be confused fairly consistently. On 05/14/16, the patient was lethargic and confused. An MRI of the abdomen was completed, and indicated a right lobe infiltrating liver mass consistent with hepatocellular carcinoma. Palliative Care was consulted to assist with symptom management, and to enter into discussions with the patient and his family regarding his diagnoses, prognosis, and the benefits and burdens of the various treatment options. . Function/Cognitive Trajectory The patient had been declining in strength over the past 3 or 4 months, but was living at home independently until he ended up on the floor and was ultimately admitted here on 05/02/16. He was at the [facility] facility for 4 days prior to being returned here again for this admission. He has been confused now during this hospitalization. . Review of Systems ROS Limitations: Altered Mental Status Constitutional: COMPLAINS OF: Fatigue, Weight loss Endocrine: DENIES: Polyuria Eyes: DENIES: Eye inflammation Ears, nose, mouth, throat: DENIES: Epistaxis Respiratory: DENIES: Cough, Shortness of breath Cardiovascular: COMPLAINS OF: Dyspnea on Exertion, Lower Extremity Edema, DENIES: Chest pain, Syncope Gastrointestinal: COMPLAINS OF: Bloody stools, Diarrhea, Vomiting, Anorexia Genitourinary: DENIES: Hematuria Musculoskeletal: COMPLAINS OF: Joint pain (mild arthritic complaints), DENIES : Back pain Integumentary: DENIES: Rash Hematologic/Lymphatics: DENIES: Lymphadenopathy Immunologic/Allergic: DENIES: Urticaria Neurologic: DENIES: Localized weakness, Seizures Psychiatric: COMPLAINS OF: Confusion, Depression Past Family Social History Coded Allergies: No Known Allergies (Unverified , 05/04/16) Past Medical History * Hepatocellular carcinoma * Recent sepsis/UTI, Escherichia coli * GI bleeding, persistent, requiring transfusion * Hepatic cirrhosis, with grade 3 varices, coagulopathy, and massive ascites * Pancytopenia * Chronic kidney disease * Hypertension * Chronic anemia * Hyperlipidemia * Anxiety * Degenerative joint disease . Past Surgical History * Right leg surgery for tib-fib fracture * EGD April 2016 . Reported Medications Pantoprazole (Pantoprazole Sodium) 40 Mg Tab 40 Mg PO Q12HR Lopressor (Metoprolol Tartrate) 50 Mg Tab 50 Mg PO Q12HR Reported Sertraline (Sertraline HCl) 50 Mg Tab 50 Mg PO DAILY Fenofibrate 160 Mg Tab 160 Mg PO DAILY Ferrous Sulfate 325 Mg Tab 325 Mg PO TID Metformin (Metformin HCl) 500 Mg Tab 500 Mg PO DAILY . Current Medications Medications (Trade) Dose Ordered Sig/Melania Route Start Time Stop Time Status Last Admin (NS Flush) 2 ml UNSCH PRN IVF 05/08/16 10:00 05/12/16 20:32 (NS Flush) 2 ml UNSCH PRN FLUSH 05/08/16 12:30 05/12/16 20:31 (NS Flush) 2 ml BID FLUSH 05/08/16 21:00 05/15/16 09:13 (Tylenol) 650 mg Q4H PRN PO 05/08/16 12:30 (Zofran Inj) 4 mg Q6H PRN IVP 05/08/16 12:30 (Tylenol) 650 mg Q6H PRN PO 05/08/16 12:30 05/13/16 12:13 (Narcan Inj) 0.4 mg UNSCH PRN IV 05/08/16 12:30 (D50w (Vial) Inj) 25 ml UNSCH PRN IV PUSH 05/08/16 12:30 (Glucagon Inj) 1 mg UNSCH PRN OTHER 05/08/16 12:30 Lactobacillus Acidophilus 1 tab 1 tab Q12HR PO 05/08/16 21:00 05/15/16 09:02 (NS 1000 ml Inj) 1,000 ml @ 84 mls/hr [id number] IV 05/08/16 14:45 Hold 05/09/16 14:35 (Lopressor) 50 mg Q12HR PO 05/08/16 21:00 Hold (Protonix Inj) 40 mg Q24H IV PUSH 05/09/16 09:00 05/15/16 09:02 (Lactulose Liq) 30 ml DAILY PO 05/09/16 09:00 Hold (Folate) 1 mg DAILY PO 05/10/16 09:00 05/15/16 09:03 (Lasix) 20 mg DAILY PO 05/10/16 11:30 05/15/16 09:03 (Aldactone) 50 mg BID PO 05/11/16 21:00 05/15/16 09:03 (Vitamin K Inj) 5 mg DAILY SQ 05/15/16 09:00 05/15/16 09:03 (Vasotec Inj) 1.25 mg Q6H PRN IV PUSH 05/14/16 15:15 (Levaquin) 750 mg DAILY PO 05/15/16 10:00 05/15/16 10:52 Family History . Last Impressions Abdomen MRI 05/14/16 0600 Signed Impressions: Service Date/Time: Saturday, May 14, 2016 15:43 - CONCLUSION: 1. Examination is severely degraded by respiratory motion artifact and artifact related to the ascites. However, I believe there is an infiltrative mass involving most of the right lobe of the liver particularly posteriorly. Given the background cirrhosis and elevated AFP this is highly suspicious for an infiltrative hepatocellular carcinoma. 2. Findings suspicious for main and right portal vein thrombosis which could be secondary to bland or tumor thrombus. 3. Findings indicative of portal hypertension including splenomegaly and large volume of ascites within the abdomen and pelvis. Bret Cedeno MD Head CT 05/08/16 0947 Signed Impressions: Service Date/Time: Sunday, May 08, 2016 10:14 - CONCLUSION: Normal examination. Itz Barrera MD Chest X-Ray 05/08/16 0947 Signed Impressions: Service Date/Time: Sunday, May 08, 2016 09:45 - CONCLUSION: Normal examination. Itz Barrera MD Abdomen/Pelvis CT 05/08/16 0000 Signed Impressions: Service Date/Time: Sunday, May 08, 2016 10:17 - CONCLUSION: Large amount of ascites in a patient with obvious cirrhosis and splenomegaly. On some of the axial images there is some lower density within the portal vein but without IV contrast I cannot dorr operator its patency. Small nodule left adrenal gland new since 2012. Could be an early spleen or renal shunt. Large amount of ascites without significant bowel wall thickening. Some thickening of the anterior bladder wall. Itz Barrera MD Reports that his mother is from an unknown type of cancer Substance Use Tobacco: Began smoking at age 19, recently has been a cigar smoker. Alcohol: Has not had much alcohol in the past 20 years, but did drink when he was younger, "but never heavily" Prescription med abuse: None. Illicits: None. . Psychosocial History Patient was born and raised in the [facility], and worked his entire career there. He moved to [place] about 10 years ago when he retired. 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 He was once, many years ago, and lived on his own until his recent illness. He has one son who lives in [place] but is here now. . Spiritual/Cultural Factors The patient has a Presbyterian background when he was younger, but patient's son reports spirituality and restorationist have not been important for the patient in many years, and he does not wish a live in caregiver visit. . Living Will: Never completed Health Care Surrogate: Never completed Durable Power of Breastfeeding Peer Counselor: Never completed Documented care wishes: The patient's son reports that he had conversations with the patient in recent months, and he is 100% certain that the patient would not want to be resuscitated in this situation, and that he would want to transition to comfort care, hospice services at this time. . Family/friends goals: The patient's son supports the wishes previously expressed by the patient, wanting a transition to comfort care, hospice services at this time. . Ethical and Legal Issues There are no ethical issues that would impact his care or decision-making at this time. The patient is confused and does not have capacity for decision-making at this time. His son Kavon Owen (Kelly) is his proxy decision maker. . Physical Exam Vital Signs Date Time Temp Pulse Resp B/P Pulse Ox O2 Delivery O2 Flow Rate FiO2 05/15/16 08:01 98.0 82 18 153/70 96 05/15/16 08:00 Room Air 05/15/16 07:45 80 05/15/16 04:05 97.8 84 18 165/70 95 05/14/16 23:32 98.3 76 18 148/72 96 05/14/16 21:08 97.2 77 18 168/78 97 05/14/16 21:03 72 05/14/16 21:00 Room Air 05/14/16 16:01 98.8 80 20 174/84 96 05/14/16 12:43 98.6 80 18 176/84 96 05/14/16 05/15/16 19:00 07:00 Intake Total 0 ml 2 ml Output Total 1200 ml 325 ml Balance -1200 ml -323 ml Intake Oral 0 ml 0 ml IV Total 2 ml Output Urine Total 1200 ml 325 ml Stool Total 0 ml # Bowel Movements 0 0 Exam CONSTITUTIONAL/GENERAL: This is a sallow, elderly appearing patient, in no apparent distress, confused. TUBES/LINES/DRAINS: IV, SCDs SKIN: No rashes, or lesions. Mild jaundice is present Ecchymoses on upper extremities. No wounds seen anteriorly. Skin temperature appropriate. Not diaphoretic. HEAD: Atraumatic. Normocephalic. EYES: Pupils equal and round and reactive. Extraocular motions intact. Mild scleral icterus. No injection or drainage. Fundi not examined. ENT: Hearing grossly normal. Nose without bleeding or purulent drainage. Throat without visible erythema, exudates, masses, or lesions. NECK: Trachea midline. Supple, nontender. No palpable thyroid enlargement or nodularity. CARDIOVASCULAR: Regular rate and rhythm without murmurs, gallops, or rubs. No JVD. Peripheral pulses symmetric. RESPIRATORY/CHEST: Symmetric, unlabored respirations. Clear to auscultation. Breath sounds equal bilaterally. No wheezes, rales, or rhonchi. GASTROINTESTINAL: Abdomen soft and nontender, but moderately distended with ascites. Unable to palpate liver, spleen, or masses. No guarding. Bowel sounds present. GENITOURINARY: Without palpable bladder distension. MUSCULOSKELETAL: Extremities without clubbing, cyanosis. There is 2+ edema both lower legs and feet. No joint tenderness or effusion noted. No calf tenderness. No mottling or clubbing. LYMPHATICS: No palpable cervical or supraclavicular adenopathy. NEUROLOGICAL: Awake and alert, but quite weak and confused. PSYCHIATRIC: No obvious anxiety/depression. no apparent hallucinations or other psychotic thought process. . Diagnostic Tests Laboratory Laboratory Tests Test 05/13/16 05/13/16 05/13/16 05/14/16 00:42 08:05 14:31 06:59 Blood Bank Comment White Blood Count 3.0 TH/MM3 3.0 TH/MM3 (4.0-11.0) (4.0-11.0) Red Blood Count 3.18 MIL/MM3 3.26 MIL/MM3 (4.50-5.90) (4.50-5.90) Hemoglobin 8.8 GM/DL 9.1 GM/DL (13.0-17.0) (13.0-17.0) Hematocrit 26.8 % 27.6 % (39.0-51.0) (39.0-51.0) Mean Corpuscular Volume 84.5 FL 84.8 FL (80.0-100.0) (80.0-100.0) Mean Corpuscular Hemoglobin 27.7 PG 27.9 PG (27.0-34.0) (27.0-34.0) Mean Corpuscular Hemoglobin 32.8 % 32.9 % Concent (32.0-36.0) (32.0-36.0) Red Cell Distribution Width 18.8 % 19.4 % (11.6-17.2) (11.6-17.2) Platelet Count 26 TH/MM3 27 TH/MM3 (150-450) (150-450) Mean Platelet Volume 8.8 FL 9.0 FL (7.0-11.0) (7.0-11.0) Neutrophils (%) (Auto) 78.5 % 78.4 % (16.0-70.0) (16.0-70.0) Lymphocytes (%) (Auto) 9.7 % 9.9 % (9.0-44.0) (9.0-44.0) Monocytes (%) (Auto) 10.1 % 9.7 % (0.0-8.0) (0.0-8.0) Eosinophils (%) (Auto) 1.2 % (0.0-4.0) 1.5 % (0.0-4.0) Basophils (%) (Auto) 0.5 % (0.0-2.0) 0.5 % (0.0-2.0) Neutrophils # (Auto) 2.4 TH/MM3 2.3 TH/MM3 (1.8-7.7) (1.8-7.7) Lymphocytes # (Auto) 0.3 TH/MM3 0.3 TH/MM3 (1.0-4.8) (1.0-4.8) Monocytes # (Auto) 0.3 TH/MM3 0.3 TH/MM3 (0-0.9) (0-0.9) Eosinophils # (Auto) 0.0 TH/MM3 0.0 TH/MM3 (0-0.4) (0-0.4) Basophils # (Auto) 0.0 TH/MM3 0.0 TH/MM3 (0-0.2) (0-0.2) CBC Comment AUTO DIFF AUTO DIFF Differential Comment AUTO DIFF AUTO DIFF CONFIRMED CONFIRMED Platelet Estimate LOW (NORMAL) LOW (NORMAL) Platelet Morphology Comment NORMAL NORMAL (NORMAL) (NORMAL) Sodium Level 139 MEQ/L 141 MEQ/L (136-145) (136-145) Potassium Level 3.3 MEQ/L 3.5 MEQ/L (3.5-5.1) (3.5-5.1) Chloride Level 108 MEQ/L 110 MEQ/L (98-107) (98-107) Carbon Dioxide Level 17.8 MEQ/L 18.5 MEQ/L (21.0-32.0) (21.0-32.0) Anion Gap 13 MEQ/L (5-15) 13 MEQ/L (5-15) Blood Urea Nitrogen 37 MG/DL (7-18) 33 MG/DL (7-18) Creatinine 1.58 MG/DL 1.49 MG/DL (0.60-1.30) (0.60-1.30) Estimat Glomerular Filtration 43 ML/MIN (>89) 46 ML/MIN (>89) Rate Random Glucose 159 MG/DL 131 MG/DL (74-106) (74-106) Calcium Level 7.8 MG/DL 8.2 MG/DL (8.5-10.1) (8.5-10.1) Ammonia 20 MCMOL/L (11-32) Keratocytes OCC (NORMAL) Prothrombin Time 18.5 SEC (9.8-11.6) Prothromb Time International 1.6 RATIO Ratio Activated Partial 46.7 SEC Thromboplast Time (24.3-30.1) Fibrinogen 120 mg/dL (227-377) Test 05/15/16 08:38 White Blood Count 3.2 TH/MM3 (4.0-11.0) Red Blood Count 3.32 MIL/MM3 (4.50-5.90) Hemoglobin 9.1 GM/DL (13.0-17.0) Hematocrit 28.2 % (39.0-51.0) Mean Corpuscular Volume 85.0 FL (80.0-100.0) Mean Corpuscular Hemoglobin 27.5 PG (27.0-34.0) Mean Corpuscular Hemoglobin 32.4 % Concent (32.0-36.0) Red Cell Distribution Width 20.1 % (11.6-17.2) Platelet Count 23 TH/MM3 (150-450) Mean Platelet Volume 8.8 FL (7.0-11.0) Neutrophils (%) (Auto) 74.2 % (16.0-70.0) Lymphocytes (%) (Auto) 13.8 % (9.0-44.0) Monocytes (%) (Auto) 9.8 % (0.0-8.0) Eosinophils (%) (Auto) 1.3 % (0.0-4.0) Basophils (%) (Auto) 0.9 % (0.0-2.0) Neutrophils # (Auto) 2.4 TH/MM3 (1.8-7.7) Lymphocytes # (Auto) 0.4 TH/MM3 (1.0-4.8) Monocytes # (Auto) 0.3 TH/MM3 (0-0.9) Eosinophils # (Auto) 0.0 TH/MM3 (0-0.4) Basophils # (Auto) 0.0 TH/MM3 (0-0.2) CBC Comment AUTO DIFF Differential Comment AUTO DIFF CONFIRMED Platelet Estimate LOW (NORMAL) Platelet Morphology Comment NORMAL (NORMAL) Prothrombin Time 17.4 SEC (9.8-11.6) Prothromb Time International 1.5 RATIO Ratio Activated Partial 45.0 SEC Thromboplast Time (24.3-30.1) Fibrinogen 144 mg/dL (181-393) Sodium Level 141 MEQ/L (136-145) Potassium Level 3.8 MEQ/L (3.5-5.1) Chloride Level 112 MEQ/L (98-107) Carbon Dioxide Level 17.0 MEQ/L (21.0-32.0) Anion Gap 12 MEQ/L (5-15) Blood Urea Nitrogen 34 MG/DL (7-18) Creatinine 1.67 MG/DL (0.60-1.30) Estimat Glomerular Filtration 41 ML/MIN (>89) Rate Random Glucose 118 MG/DL (74-106) Calcium Level 8.0 MG/DL (8.5-10.1) Total Bilirubin 2.5 MG/DL (0.2-1.0) Aspartate Amino Transf 21 U/L (15-37) (AST/SGOT) Alanine Aminotransferase 15 U/L (12-78) (ALT/SGPT) Alkaline Phosphatase 61 U/L (45-117) Total Protein 6.3 GM/DL (6.4-8.2) Albumin 2.7 GM/DL (3.4-5.0) Result Diagram: 05/15/16 0838 05/15/16 0838 Imaging Last Impressions Abdomen MRI 05/14/16 0600 Signed Impressions: Service Date/Time: Saturday, May 14, 2016 15:43 - CONCLUSION: 1. Examination is severely degraded by respiratory motion artifact and artifact related to the ascites. However, I believe there is an infiltrative mass involving most of the right lobe of the liver particularly posteriorly. Given the background cirrhosis and elevated AFP this is highly suspicious for an infiltrative hepatocellular carcinoma. 2. Findings suspicious for main and right portal vein thrombosis which could be secondary to bland or tumor thrombus. 3. Findings indicative of portal hypertension including splenomegaly and large volume of ascites within the abdomen and pelvis. Bret Cedeno MD Head CT 05/08/16 0947 Signed Impressions: Service Date/Time: Sunday, May 08, 2016 10:14 - CONCLUSION: Normal examination. Itz Barrera MD Chest X-Ray 05/08/1647 Signed Impressions: Service Date/Time: Sunday, May 08, 2016 09:45 - CONCLUSION: Normal examination. Itz Barrera MD Abdomen/Pelvis CT 05/08/16 0000 Signed Impressions: Service Date/Time: Sunday, May 08, 2016 10:17 - CONCLUSION: Large amount of ascites in a patient with obvious cirrhosis and splenomegaly. On some of the axial images there is some lower density within the portal vein but without IV contrast I cannot dorr operator its patency. Small nodule left adrenal gland new since 2012. Could be an early spleen or renal shunt. Large amount of ascites without significant bowel wall thickening. Some thickening of the anterior bladder wall. Itz Barrera MD Patient/Family Conference Present at Family Conference: Patient's son . Family Conference Time (mins): 41 Family Conference Location: Bedside, Consult Room Issues Discussed: * Palliative care role, purpose, approach * Hospice care role, purpose, approach * Additional medical, psychosocial, and spiritual history * Patients general health, functional status, and cognitive changes in the months leading up to the current hospitalization * Patient/family understanding of the current medical problems * Patient/family understanding of prognosis * Patients goals of care as best understood from advance directives and/or conversations and/or values * Current medical treatment options and benefits/burdens of those options * Likely scenarios comparing ongoing aggressive care with a transition to comfort measures only * Questions answered to the best of my ability * Palliative care contact information provided The patient is confused and does not have capacity for decision-making at this time. His son Kavon Owen (Kelly) is his proxy decision maker. The patient' s son reports that he had conversations with the patient in recent months, and he is 100% certain that the patient would not want to be resuscitated in this situation, and that he would want to transition to comfort care, hospice services at this time. . 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 Had been living alone until the current illness. Spiritual: Presbyterian background, but not spiritual or christian in recent years, does not want live in caregiver visits. Legal: The patient is confused and does not have capacity for decision-making at this time. His son Kavon Owen (Kelly) is his proxy decision maker. Ethical issues impacting care: None. . Important Contacts Son: Kavon Owen (Kelly) [phone] . Prognosis This patient is terminal. He has underlying end-stage liver disease, and now has apparent hepatocellular carcinoma on MRI. He has been declining for 3 or 4 months, with muscle wasting and now confusion and profound weakness. He is appropriate for hospice services. . Code Status: No Code Plan * DO NOT RESUSCITATE * GOALS: The patient's son reports that he had conversations with the patient in recent months, and he is 100% certain that the patient would not want to be resuscitated in this situation, and that he would want to transition to comfort care, hospice services at this time. * Hospice consult placed. * DECISION-MAKING: The patient is confused and does not have capacity for decision-making at this time. His son Kavon Owen (Kelly) is his proxy decision maker. * SYMPTOMS: The patient's anxiety and restlessness could be managed with judicious use of a benzodiazepine. He has no particular pain at this time. * DISPOSITION: His previous nursing facility ([facility]) has reportedly said they would take him back. Hopefully, arrangements can be made for transfer back there with hospice services. * Palliative Care will continue to follow the patient during this hospitalization. . Time Spent Total Floor Time (mins): 80 Face to Face Time (mins): 55 >50% Counseling/Coord of Care: Yes (d/w Jessica Jaramillo) Thank you for the opportunity to participate in the care of Mr. Owen. Attestation To help prompt me to consider important information that might be impacting today's encounter and assessment, information from prior notes written by myself or my colleagues may have been "brought forward" into today's note. My signature on this note, however, is an attestation that I personally performed the exam, history, and/or decision-making noted today, and, unless otherwise indicated, the interactions with patient, family, and staff as well as the review of records all occurred today. I also attest that the listed assessment and stated plan reflect my best clinical judgment today based on the combination of historical information, prior notes, and today's exam/ interactions. When time spent is documented, it refers only to time spent today by the signer, or if indicated, combined time spent today by collaborating physician/nurse practitioner. Ashley Blakely MD May 15, 2016 11:57
[2016-05-15 12:01] VITALS: BP 166/76; PULSE 89; RESP 18; TEMP 98; O2SAT 97
[2016-05-15] MEDS: ACETAMINOPHEN 325 MG TAB PO PRN (13:14)
[2016-05-15] MEDS ORDERED: ALDA50TA2 PO (14:59)
[2016-05-15] MEDS ORDERED: LEVA750T PO (14:59)
[2016-05-15] MEDS ORDERED: FURO20TA PO (14:59)
--- NOTE | 2016-05-15 14:59 | HHI.DS ---
Discharge Summary Admission Date May 08, 2016 at 12:31 Discharge Date: May 15, 2016 Admitting Diagnosis altered mental status, sepsis, SBP (1) Toxic metabolic encephalopathy ICD Code: G92 (2) SBP (spontaneous bacterial peritonitis) ICD Code: K65.2 (3) UTI (urinary tract infection) ICD Code: N39.0 (4) Sepsis ICD Code: A41.9 (5) Pancytopenia ICD Code: D61.818 (6) Diabetes mellitus ICD Code: E11.9 (7) Diabetes mellitus type 2 in obese ICD Code: E11.9 (8) GI bleed ICD Code: K92.2 (9) Esophageal varices ICD Code: I85.00 (10) Elevated AFP ICD Code: R77.2 Procedures see below Brief History - From Admission 75 year-old female with a history of diabetes type 2, recent GI bleed was admitted last week at [facility] secondary to GI bleed and symptomatic anemia was found on EGD to have grade 3 esophageal varices over at a time no banding done secondary to low platelets, high INR and anemia. Patient was however transfused 2 units during that hospitalization and was discharged in stable condition a local [facility] facility 05/05/16 was brought today to the ED for evaluation of altered mental status change. Per patient's son's account he started declining 2 days after discharge and his condition worsened today as patient was confused and complain of abdominal pain however there was no report of GI bleed or febrile episode. During my exam, patient is arousable and he is alert and oriented to self and date of . Although fecal occult blood was positive his H&H remained stable. CBC/BMP: 05/15/16 0838 05/15/16 0838 Significant Findings Laboratory Tests Test 05/13/16 05/14/16 05/15/16 08:05 06:59 08:38 White Blood Count 3.0 TH/MM3 3.0 TH/MM3 3.2 TH/MM3 (4.0-11.0) (4.0-11.0) (4.0-11.0) Red Blood Count 3.18 MIL/MM3 3.26 MIL/MM3 3.32 MIL/MM3 (4.50-5.90) (4.50-5.90) (4.50-5.90) Hemoglobin 8.8 GM/DL 9.1 GM/DL 9.1 GM/DL (13.0-17.0) (13.0-17.0) (13.0-17.0) Hematocrit 26.8 % 27.6 % 28.2 % (39.0-51.0) (39.0-51.0) (39.0-51.0) Red Cell Distribution Width 18.8 % 19.4 % 20.1 % (11.6-17.2) (11.6-17.2) (11.6-17.2) Platelet Count 26 TH/MM3 27 TH/MM3 23 TH/MM3 (150-450) (150-450) (150-450) Neutrophils (%) (Auto) 78.5 % 78.4 % 74.2 % (16.0-70.0) (16.0-70.0) (16.0-70.0) Monocytes (%) (Auto) 10.1 % 9.7 % (0.0-8.0) 9.8 % (0.0-8.0) (0.0-8.0) Lymphocytes # (Auto) 0.3 TH/MM3 0.3 TH/MM3 0.4 TH/MM3 (1.0-4.8) (1.0-4.8) (1.0-4.8) Platelet Estimate LOW (NORMAL) LOW (NORMAL) LOW (NORMAL) Potassium Level 3.3 MEQ/L (3.5-5.1) Chloride Level 108 MEQ/L 110 MEQ/L 112 MEQ/L (98-107) (98-107) (98-107) Carbon Dioxide Level 17.8 MEQ/L 18.5 MEQ/L 17.0 MEQ/L (21.0-32.0) (21.0-32.0) (21.0-32.0) Blood Urea Nitrogen 37 MG/DL (7-18) 33 MG/DL (7-18) 34 MG/DL (7-18) Creatinine 1.58 MG/DL 1.49 MG/DL 1.67 MG/DL (0.60-1.30) (0.60-1.30) (0.60-1.30) Estimat Glomerular Filtration 43 ML/MIN (>89) 46 ML/MIN (>89) 41 ML/MIN (>89) Rate Random Glucose 159 MG/DL 131 MG/DL 118 MG/DL (74-106) (74-106) (74-106) Calcium Level 7.8 MG/DL 8.2 MG/DL 8.0 MG/DL (8.5-10.1) (8.5-10.1) (8.5-10.1) Prothrombin Time 18.5 SEC 17.4 SEC (9.8-11.6) (9.8-11.6) Activated Partial 46.7 SEC 45.0 SEC Thromboplast Time (24.3-30.1) (24.3-30.1) Fibrinogen 120 mg/dL 144 mg/dL (227-377) (181-393) Total Bilirubin 2.5 MG/DL (0.2-1.0) Total Protein 6.3 GM/DL (6.4-8.2) Albumin 2.7 GM/DL (3.4-5.0) PE at Discharge GENERAL: This is a well-nourished, well-developed patient, in no apparent distress. SKIN: No rashes, warm and dry HEAD: Atraumatic. Normocephalic. EYES: Pupils equal round and reactive. Extraocular motions intact. No scleral icterus. ENT: Nose without bleeding, or drainage, Airway patent. NECK: Trachea midline. Supple CARDIOVASCULAR: Regular rate and rhythm without murmurs, gallops, or rubs. RESPIRATORY: Fair air entry bilaterally. No wheezes, rales, or rhonchi. GASTROINTESTINAL: Abdomen soft, non-tender, nondistended. Positive bowel sounds MUSCULOSKELETAL: Extremities without clubbing, cyanosis, or edema. Pedal pulses appreciated NEUROLOGICAL: Awake and alert. Moves all extremity. Normal speech.no focal neurological deficit Hospital Course 75-year-old male with Sepsis/gonmblbyjp-[id number]: Likely source UTI; started on cefepime pending culture report. ID consulted Toxic metabolic versus hepatic encephalopathy: Check ammonia 05/13/16 and treat accordingly Anemia of chronic GIB: Transfused 2 units PRBC 05/12/16; H&H currently stable UTI on Cefepime pending Urine culture following Hyperammonemia: Now resolved however due to increased confusion, check ammonia level and resume lactulose accordingly Recent history of GI bleed: With recent diagnosis of esophageal varices. No active bleeding, Protonix IV. EGD was not performed 05/11/16 due to anemia. Currently on spironolactone and Lasix secondary to ascites/cirrhosis. Elevated AFP concerning for hepatocellular carcinoma, therefore abdominal MRI 05/14/16 highly suspicious for liver malignancy. Negative hepatitis profile Chronic kidney disease stage III: Renal indices improving, and avoid all nephrotoxic drugs Hypertension: continue outpatient medication Diabetes type 2: Hold oral hypoglycemic agent, medium sliding scale insulin. DVT prophylaxis: Bilateral SCDs Pancytopenia: Appear to be secondary to current infection vs DIC, appreciate input from hematology, continue with current treatment. Daily folate. Then she'll he the plan by the family and the patient was to go for hospice care to the hospice facility, discussed with the hospice agent Pt Condition on Discharge: Guarded Discharge Disposition: Hospice/Med Facility Discharge Time: > 30 minutes Discharge Instructions DIET: Follow Instructions for: On Tube Feeding Activities you can perform: Weight Bearing as Tim New Medications: Furosemide (Furosemide) 20 Mg Tab 20 MG PO DAILY . #30 TAB Levofloxacin (Levaquin) 750 Mg Tab 750 MG PO Q48H . Days 10 TAB Spironolactone (Aldactone) 50 Mg Tab 50 MG PO BID . Days 60 TAB Continued Medications: Fenofibrate (Fenofibrate) 160 Mg Tab 160 MG PO DAILY #30 Ref 0 TAB Ferrous Sulfate (Ferrous Sulfate) 325 Mg Tab 325 MG PO TID Nutritional Supplement #30 Ref 0 TAB Metformin (Metformin) 500 Mg Tab 500 MG PO DAILY With a meal Blood Sugar Management #30 Ref 0 TAB Metoprolol Tartrate (Lopressor) 50 Mg Tab 50 MG PO Q12HR Blood Pressure Management #60 TAB Pantoprazole (Pantoprazole) 40 Mg Tab 40 MG PO Q12HR Manage Heartburn #60 TAB Sertraline (Sertraline) 50 Mg Tab 50 MG PO DAILY #30 Ref 0 TAB Tamiko Kelley MD May 15, 2016 14:59
--- NOTE | 2016-05-15 15:09 | HHI.GIFU ---
Subjective Remarks Resting in bed. Lethargic. Some abdominal discomfort. Pt confused. Son at bedside. Son reports that they met with Dr. aRngel and he realizes that his father is not a candidate for aggressive treatment, would like to pursue comfort measures/hospice care. Objective Vitals I&O Vital Signs Date Time Temp Pulse Resp B/P Pulse Ox O2 Delivery O2 Flow Rate FiO2 05/15/16 08:01 98.0 82 18 153/70 96 05/15/16 08:00 Room Air 05/15/16 07:45 80 05/15/16 04:05 97.8 84 18 165/70 95 05/14/16 23:32 98.3 76 18 148/72 96 05/14/16 21:08 97.2 77 18 168/78 97 05/14/16 21:03 72 05/14/16 21:00 Room Air 05/14/16 16:01 98.8 80 20 174/84 96 I/O 05/14/16 05/14/16 05/14/16 05/15/16 05/15/16 05/15/16 07:00 15:00 23:00 07:00 15:00 23:00 Intake Total 200 ml 0 ml 2 ml 0 ml Output Total 200 ml 1200 ml 200 ml 125 ml Balance 0 ml -1200 ml -198 ml -125 ml Intake Oral 0 ml 0 ml 0 ml IV Total 200 ml 2 ml Output Urine Total 200 ml 1200 ml 200 ml 125 ml Stool Total 0 ml # Bowel Movements 0 0 0 0 Laboratory Laboratory Tests Test 05/15/16 08:38 White Blood Count 3.2 Red Blood Count 3.32 Hemoglobin 9.1 Hematocrit 28.2 Mean Corpuscular Volume 85.0 Mean Corpuscular Hemoglobin 27.5 Mean Corpuscular Hemoglobin 32.4 Concent Red Cell Distribution Width 20.1 Platelet Count 23 Mean Platelet Volume 8.8 Neutrophils (%) (Auto) 74.2 Lymphocytes (%) (Auto) 13.8 Monocytes (%) (Auto) 9.8 Eosinophils (%) (Auto) 1.3 Basophils (%) (Auto) 0.9 Neutrophils # (Auto) 2.4 Lymphocytes # (Auto) 0.4 Monocytes # (Auto) 0.3 Eosinophils # (Auto) 0.0 Basophils # (Auto) 0.0 CBC Comment AUTO DIFF Differential Comment AUTO DIFF CONFIRMED Platelet Estimate LOW Platelet Morphology Comment NORMAL Prothrombin Time 17.4 Prothromb Time International 1.5 Ratio Activated Partial 45.0 Thromboplast Time Fibrinogen 144 Sodium Level 141 Potassium Level 3.8 Chloride Level 112 Carbon Dioxide Level 17.0 Anion Gap 12 Blood Urea Nitrogen 34 Creatinine 1.67 Estimat Glomerular Filtration 41 Rate Random Glucose 118 Calcium Level 8.0 Total Bilirubin 2.5 Aspartate Amino Transf 21 (AST/SGOT) Alanine Aminotransferase 15 (ALT/SGPT) Alkaline Phosphatase 61 Total Protein 6.3 Albumin 2.7 Imaging Last Impressions Abdomen MRI 05/14/16 0600 Signed Impressions: Service Date/Time: Saturday, May 14, 2016 15:43 - CONCLUSION: 1. Examination is severely degraded by respiratory motion artifact and artifact related to the ascites. However, I believe there is an infiltrative mass involving most of the right lobe of the liver particularly posteriorly. Given the background cirrhosis and elevated AFP this is highly suspicious for an infiltrative hepatocellular carcinoma. 2. Findings suspicious for main and right portal vein thrombosis which could be secondary to bland or tumor thrombus. 3. Findings indicative of portal hypertension including splenomegaly and large volume of ascites within the abdomen and pelvis. Bret Cedeno MD Head CT 05/08/16 0947 Signed Impressions: Service Date/Time: Sunday, May 08, 2016 10:14 - CONCLUSION: Normal examination. Itz Barrera MD Chest X-Ray 05/08/16 0947 Signed Impressions: Service Date/Time: Sunday, May 08, 2016 09:45 - CONCLUSION: Normal examination. Itz Barrera MD Abdomen/Pelvis CT 05/08/16 0000 Signed Impressions: Service Date/Time: Sunday, May 08, 2016 10:17 - CONCLUSION: Large amount of ascites in a patient with obvious cirrhosis and splenomegaly. On some of the axial images there is some lower density within the portal vein but without IV contrast I cannot ladies' locker room attendant its patency. Small nodule left adrenal gland new since 2012. Could be an early spleen or renal shunt. Large amount of ascites without significant bowel wall thickening. Some thickening of the anterior bladder wall. Itz Barrera MD Physical Exam CHEST: CTA CARDIAC: RRR ABDOMEN: Soft, significant distention with ascites but nontender; no hepatosplenomegaly; bowel sounds are present in all four quadrants. EXTREMITIES: No clubbing, cyanosis,2+ edema lower extremities. SKIN: Normal; no rash; no jaundice. SPORTS COMPLEX ATTENDANT: No focal deficits; Lethargic and oriented times 1 Assessment and Plan Plan ASSESSMENT: - GIB, Hematochezia. S/P Recent EGD (05/03/16)---> Grade 2 esophageal varices 3 no active bleed. No banding because of low hgb, low plt, high inr. Pt was discharged to nursing facility and brought back for AMS. He is lethargic, but oriented, although a poor historian. While in ER, he passed small amount of maroon colored blood. Pt cannot provide any information about this. He has not had any further bleeding. Plt remain low despite multiple transfusions, 23. - Anemia, acute blood loss. HH 9.1/28.2. S/P 2 PRBC. - Liver mass with significantly elevated AFP 2822.1. Abdomen MRI (05/14/16)----> 1. Examination is severely degraded by respiratory motion artifact and artifact related to the ascites. However, I believe there is an infiltrative mass involving most of the right lobe of the liver particularly posteriorly. Given the background cirrhosis and elevated AFP this is highly suspicious for an infiltrative hepatocellular carcinoma. 2. Findings suspicious for main and right portal vein thrombosis which could be secondary to bland or tumor thrombus. 3. Findings indicative of portal hypertension including splenomegaly and large volume of ascites within the abdomen and pelvis. This is most like hepatocellular carcinoma given his hx of cirrhosis and elevated AFP. - Liver cirrhosis. Patient denies any history of liver cirrhosis. He was diagnosed during his last admission. He denies any history of heavy alcohol use. We will order the liver workup, since the etiology of this is unclear. He does have advanced liver cirrhosis, with MELD of 16, with coagulopathy, varices, thrombocytopenia, and elevated LFTs with low albumin. AFP significantly elevated at 2822.1. Large liver mass, likely hepatocellular. - Ascites, large amount. Not tense or painful. Afebrile. Albumin, Lasix, Spironolactone. Negative balance although he continues to have significant ascites, appears to be worsening. - Coagulopathy/Thrombocytopenia. Plt 23. PT 17.4 INR 1.5. - HTN, Hyperlipidemia, DM, CKD per primary. PLAN: - Heart healthy diet - Cont. PPI - Cont. Albumin - Cont. Lasix - Cont. Spironolactone - Pt's son has decided on comfort measures/hospice consulted to meet with family - GI will sign off, please reconsult as needed - Pt seen and examined by Dr. Fontana and myself and this note is written on his behalf Lia Akhtar May 15, 2016 15:09
[2016-05-15 16:02] VITALS: BP 161/74; PULSE 90; RESP 18; TEMP 98; O2SAT 97
[2016-05-15 16:08] VITALS: BP 161/74; PULSE 90; RESP 20; TEMP 97.8; O2SAT 97
[2016-05-17] MEDS ORDERED: LEVOFLOXACIN 750 MG TAB PO SCH (11:00)
== END 2016-05-15 16:10 | disposition hospice, inpatient (51) | DRG 871 ==
LOC: NEPC 09:31 → NEDA 12:31 → NEDH 16:19 → N04B 18:10
PROVIDERS: ADMIT Hospitalist; ATTEND Hospitalist
PROC: 0W9G3ZX Drainage of Peritoneal Cavity, Percutaneous Approach, Diagnostic (ICD-10-PCS; principal; 2016-05-08)
PROC: 30233R1 Transfusion of Nonautologous Platelets into Peripheral Vein, Percutaneous Approach (ICD-10-PCS; 2016-05-11)
PROC: 30233N1 Transfusion of Nonautologous Red Blood Cells into Peripheral Vein, Percutaneous Approach (ICD-10-PCS; 2016-05-12)
DX: A41.51 Sepsis due to Escherichia coli [E. coli] (principal); G92 Toxic encephalopathy; D65 Disseminated intravascular coagulation [defibrination syndrome]; K65.2 Spontaneous bacterial peritonitis; C22.0 Liver cell carcinoma; I85.00 Esophageal varices without bleeding; D62 Acute posthemorrhagic anemia; D61.818 Other pancytopenia; R18.8 Other ascites; N39.0 Urinary tract infection, site not specified; K92.1 Melena; K76.6 Portal hypertension; E11.22 Type 2 diabetes mellitus with diabetic chronic kidney disease; K74.60 Unspecified cirrhosis of liver; N18.3 Chronic kidney disease, stage 3 (moderate); I12.9 Hypertensive chronic kidney disease with stage 1 through stage 4 chronic kidney disease, or unspecified chronic kidney disease; E66.9 Obesity, unspecified; E78.5 Hyperlipidemia, unspecified; R16.1 Splenomegaly, not elsewhere classified; M19.90 Unspecified osteoarthritis, unspecified site; F17.290 Nicotine dependence, other tobacco product, uncomplicated; F41.9 Anxiety disorder, unspecified; Z51.5 Encounter for palliative care; Z66 Do not resuscitate; Z68.33 Body mass index [BMI] 33.0-33.9, adult; Z79.84 Long term (current) use of oral hypoglycemic drugs
CPT/HCPCS: 36430; 49083; 70450; 71010; 74176; 74183; 76937; 80048; 80053; 80074; 80076; 81001; 82042; 82103; 82105; 82140; 82150; 82390; 82607; 82728; 82746; 82945; 82948; 83010; 83520; 83540; 83550; 83605; 83615; 84157; 84484; 85007; 85025; 85027; 85044; 85384; 85610; 85730; 86038; 86256; 86850; 86900; 86901; 86920; 87040; 87070; 87077; 87086; 87186; 87205; 87493; 88112; 89051; 93306; 96374; A9579; C9113; J0692; J0696; J1815; J3370; J3430; J7030; J7040; J7050; P9016; P9035; P9047; P9612